=== PATIENT | male | born 1955 | race Caucasian/White ===

== ENCOUNTER → 2024-10-12 14:39 | Outpatient (REF) | payer MEDICAID, MEDICARE, SELFPAY | LOC: RAD 14:39 | PROVIDERS: ATTENDING PHYSICIAN Surgery; FAMILY PHYSICIAN Family Medicine | DX: R10.31 Right lower quadrant pain (principal) | CPT/HCPCS: 76870; 76882; 93976 ==

== ENCOUNTER 2024-11-27 04:47 | Observation (INO) | payer MEDICARE, SELFPAY ==
[2024-11-26] VITALS (9 sets, daily range): BP systolic 108–149; BP diastolic 75–92; PULSE 82–90; BMI 25.3
[2024-11-26 17:11] LABS: Urine Character Cloudy (Clear)
[2024-11-26 17:50] LABS: Urine Squamous Cell 0-2 /LPF (Few)
[2024-11-26 17:53] LABS: Urine White Cell >100 /HPF (0-5)
[2024-11-26 20:25] LABS: Hematocrit 36.1 % (39.0-52.0); Hemoglobin 12.0 g/dL (13.0-18.0); Mean Corp Hgb Conc. 33.2 g/dL (33.0-37.0); Mean Corpuscular Volume 91.6 fL (80.0-94.0); Nucleated Red Blood Cells % 0 % (-); Platelet Count 192 10^3/uL (130-400); Red Cell Dist. Width 13.9 % (11.5-14.5)
[2024-11-26 20:32] LABS: ALT (SGPT) 16 U/L (0-50); AST (SGOT) 20 U/L (17-59); Albumin 4.7 g/dl (3.5-5.0); Alkaline Phosphatase 64 U/L (38-126); Blood Urea Nitrogen 23 mg/dl (9-20); Calcium 9.3 mg/dl (8.4-10.2); Carbon Dioxide 24 mmol/L (22-30); Chloride 108 mmol/L (98-107); Estimated Creatinine Clearance 65 ml/min; Glucose 92 mg/dl (70-99); Potassium 3.6 mmol/L (3.5-5.1); Sodium 139 mmol/L (135-145); Total Protein 7.2 g/dl (6.3-8.2); eGFR > 60.00
[2024-11-26 20:43] LABS: Troponin I < 0.012 ng/ml
--- NOTE | 2024-11-26 21:44 | ED.GENMED ---
History of Present Illness
General
Chief Complaint: Fall
Source: patient, records (Requested from [place]) and family
Exam Limitations: none
Time Seen by Provider: 11/26/24 21:27
Nursing documentation reviewed up to this point in time: agreed with
History of Present Illness
History of Present Illness:
69-year-old male complex past medical history
10 CVAs, 50 TIAs, circulation
Few weeks ago had a carotid endarterectomy at [place], with right-sided weakness stroke, which improved, recovering slowly from that surgery, this week he had a few episodes where he nearly passed out, did not strike his head but went down to the
ground, no headache no nausea vomiting dysuria no frequency, he spoke with his physicians suggested to go to the ER tells me he was not happy with the care at [facility] and thus came to [facility]
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
Past History
Past History
ED Past Medical History: HTN, Hypercholesterolemia, IDDM, Valvular disease and Other (Migraines)
ED Past Surgical History: Cardiac (Aortic valve replacement 2016, [facility])
Social History
Tobacco: Non-smoker
Alcohol: None
Drug: None
Personal:
Living: with family
Employment: Retired
Review of Systems
Review of Systems
All Other Systems: Not applicable
Constitutional: Reports fatigue; Denies fever
EENT: Reports no symptoms
Respiratory: Reports no symptoms
Cardiac: Reports no symptoms
ABD/GI: Reports no symptoms
: Denies dysuria or incontinence
Musculoskeletal: Reports no symptoms
Neurological: Reports weakness; Denies dizzy
Endocrine: Reports no symptoms
Hematologic/Lymphatic: Reports no symptoms
Phy Exam
Physical Exam
Physical Exam:
Physical Exam
General: no apparent distress, not acutely ill
Neck: No tongue bite no posterior neck pain neck surgical scar clean dry and intact poor dentition
Heart: s1/s2 regular rate and rhythm, no murmur. equal radial pulses.
Lungs: no acute respiratory distress. clear bilaterally
Abdomen: Nontender
Neuro: alert and oriented. no focal neurological deficits
Skin: no rash
Psychiatric: well kept. interactive and cooperative
Extremities: no edema.
Course
Orders/Labs/Results
Orders:
Orders
11/26/24 16:32
Electrocardiogram (*1) Urgent
Reason for Study: Chest Pain
EKG- Treatment ONCE
11/26/24 16:58
Urinalysis Reflex To Culture Urgent
Date Specimen was Collected: 11/26/24
Time Specimen was Collected: 16:33
Urine Microscopic Reflex Cult Urgent
Urine Culture Urgent
TIFFANY Source: U
Specimen Description:
Date Specimen was Collected: 11/26/24
Time Specimen was Collected: 16:33
11/26/24 19:58
Complete Blood Count/With Diff Urgent
Comprehensive Metabolic Panel Urgent
Troponin I Urgent
11/26/24 21:39
Add On - Microbiology Urgent
Tests Added?: urine culture
Orthostatic VS- Treatment ONCE
0.9% Sodium Chloride 1000 ml [Nss] 1,000 ml IV BOLUS
11/26/24 21:40
CT Head & Neck Angio W/wo IV Urgent
Comment:
Reason For Exam: recent CEA, cva anatomay??
Abnormal Lab Results
11/26/24 11/26/24
16:58 19:58
RBC 3.94 L 10^6/uL
(4.70-6.10)
Hgb 12.0 L g/dL
(13.0-18.0)
Hct 36.1 L %
(39.0-52.0)
Chloride 108 H mmol/L
(98-107)
BUN 23 H mg/dl
(9-20)
Ur Occult Blood Reflex 1+ A
(Negative)
Leukocyte Esterase Rfl 3+ A
(Negative)
Urine RBC 7-10 A /HPF
(0-2)
Urine WBC (Reflex) >100 A /HPF
(0-5)
Urine Bacteria (Reflex) Moderate A
(Negative)
Urine Albumin (Reflex) 1+ A
(Neg - Trace)
11/26/24 19:58
11/26/24 19:58
Vital Signs
Initial and Last Documented VS:
Initial Vital Signs
Temp Pulse Resp BP Pulse Ox
98.2 F 89 16 131/92 100
11/26/24 16:25 11/26/24 16:25 11/26/24 16:25 11/26/24 16:25 11/26/24 16:25
Last Documented Vital Signs
Temp Pulse Resp BP Pulse Ox
98.2 F 78 11 120/80 90
11/26/24 16:25 11/27/24 00:45 11/27/24 00:45 11/27/24 00:11 11/26/24 23:45
MDM/Problems Addressed
Differential Diagnosis Includes:
Dehydration arrhythmia intracerebral hemorrhage seizure electrolyte abnormality UTI deconditioning
MDM/Problems Addressed:
Weakness
Chronic conditions affecting care: DM and Neurological disorder
Acute Exacerbation and/or Progression of Chronic Illness: DM and Neurological disorder
*Radiology
Radiology exam reviewed: radiology read reviewed
*Pulse Oximetry
SaO2: 100
Oxygen Mode of Delivery: Room air
Patient hypoxic: no
*EKG
Interpreted by ED Provider?: Yes
Interpretation: normal
Comparison EKG: no comparison EKG present
Heart Rate: 78
Rate: normal
Rhythm: sinus
Ischemia: no ischemia
*Childcare Attendant Interpretation
Rate: normal
Interpretation: normal
Heart Rate: 78
Rhythm: sinus
*Critical Care Note
Total Time (30-74mins, 75-104mins- exclusive of procedures): Not Applicable
Update Note
Update Note:
Update complex past medical history, looks fairly well compensated here urinalysis noted will check culture, check CT angiogram of the head I have requested old records from [place], will start saline hydration check orthostatics keep on cardiac
monitor
1:15 AM, CT report reviewed with vision, looks like a lot of chronic findings,
ED Attending Note
-
Portions of this chart may have been created with voice recognition software.� Occasional wrong word or��sound alike� substitutions may have occurred due to the inherent limitations of voice recognition software.
Discharge Plan
Departure
Patient Disposition: Admit
Date of Disposition: 11/27/24
Time of Disposition: 01:30
Admit to: Telemetry
Presentation/result/management discussed w/ accepting MD/DO: Hospitalist
Patient with high blood pressure during this ER visit?: No
Condition: Fair
Discharge Problem:
Syncope and collapse, UTI (urinary tract infection)
Prescriptions:
No Action
acetaminophen 325 MG tablet
650 mg PO Q4-6HPRN PRN (Reason: pain/fever)
atorvastatin 10 MG tablet
10 mg PO QPM
riboflavin (vitamin B2) [Vitamin B-2] 100 MG tablet
200 mg PO BID
milk thistle 175 MG tablet
175 mg PO TID
aspirin [Ecotrin Low Strength] 81 MG tablet,delayed release (DR/EC)
81 mg PO DAILY
magnesium oxide 400 MG tablet
400 mg PO BID
ascorbic acid (vitamin C) [Vitamin C] 500 MG tablet
500 mg PO DAILY
ranitidine HCl 150 MG tablet
150 mg PO DAILY
metoprolol tartrate 50 MG tablet
50 mg PO DAILY
docusate sodium [Colace] 100 MG capsule
100 mg PO BIDPRN PRN (Reason: constipation)
oxycodone 5 MG tablet
5 - 10 mg PO Q4HPRN PRN (Reason: pain)
cholecalciferol (vitamin D3) [Vitamin D3] 1,000 UNIT capsule
1,000 unit PO TID
insulin aspart U-100 [Novolog FlexPen U-100 Insulin] 300 UNITS/3 ML insulin pen
0 units SC QID
Patient Comments:
sliding scale
omega 8-wgp-dlb-fish oil 1 EACH capsule
1 ea PO TID
Cranberry
4,200 mg PO TID
Denatured [place]
175 mg PO BID
Rosa
650 mg PO BID
topiramate 200 MG tablet
200 mg PO BID
Saw [place]
1 cap PO TID
Turmeric
60 mg PO BID
linezolid 600 MG tablet
600 mg PO BID Qty: 28 0RF
Referrals:
Lori Rachel MD [Family Provider, Internal Medicine]
Interventions
Interventions:
*Risk Screen - Suicide Last Done: 11/26/24 16:25
*General Assessment Last Done: 11/26/24 20:04
*Neglect/Abuse Screening Last Done: 11/26/24 16:25
*ED- Fall Risk Assessment Last Done: 11/26/24 20:04
*ED COVID-19 Vaccine History Last Done: 11/26/24 20:04
ED-Musculoskeletal Assessment Last Done: 11/26/24 20:04
ED- Neurological Assessment Last Done: 11/26/24 20:04
ED-Skin Assessment Last Done: 11/26/24 20:04
Discharge Date and Time
Print Language: KINYARWANDA
[2024-11-26] MEDS: NSS 1000 IV (21:49)
[2024-11-27] VITALS (13 sets, daily range): BP systolic 104–164; BP diastolic 64–99; PULSE 81–94; BMI 24.7
[2024-11-27] MEDS: LEVAQUIN 250 MG PO ×2 (01:47→23:02)
--- NOTE | 2024-11-27 03:16 | HPS.HSE ---
Family Physician
-
Family Physician: Lori Rachel
Chief Complaint
-
Falls
History of Present Illness
This is a 69-year-old with extensive past medical history including history of CVA, migrainous stroke, bipolar disorder, diabetes, hypertension, CAD, aortic valve replacement with patch prostatic valve, hyperlipidemia, neurological gait dysfunction
with history of subdural hematoma, history of carotid stenosis status post endarterectomy (recently at [place]) presenting to the emergency department with episode of nearly passing out.
Patient was admitted to [facility] in a month ago. At that time he had a right-sided weakness and stroke. He was status post carotid endarterectomy and recovering slowly from that surgery. He has had a few episodes of nearly passing out
this week. He did not strike his head but did go all the way to the ground. He denied any headache nausea vomiting. He denied any palpitations. He denied orthostatic dizziness. Patient reported symptoms to his physician and he was referred to
the emergency department.
He denies any recent melena or hematochezia. Denies diarrhea. Denies any cough, shortness of breath dyspnea on exertion. He denies any fevers or chills. He denies any urinary symptoms.
During hospitalization patient required catheterization and did have diarrhea. He left AMA because he did not like the care he was receiving at [place]. Patient refused Plavix but was taking full dose aspirin.
In the emergency department here today with a blood pressure of 134/90 with a pulse of 78 and he was satting 95% on room air. Temperature was 98.2.
ECG showed sinus rhythm at a rate of 74. UA is positive for leukocyte esterase WBCs and bacteria. CBC was unremarkable. Electrolytes and BUN/creatinine were unremarkable.
A CT head and CT angiogram of the head and neck showing:
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 Venous sinuses are patent no evidence of acute infarct or enhancement. The neck shows mild to moderate diffuse
soft tissue prominence around left carotid bulb probably postoperative. No findings suggestive of dissection or rupture. There is severe narrowing of the intradural segment of the left cerebral artery but no occlusion. Moderate sclerosis of the
right intradural segment of the vertebral artery.
Medical History
Past Medical History
Past Medical History: Reports Other (Hypertension, hyperlipidemia, CVA, insulin-dependent diabetes, valvular disease, migraine, bipolar disorder,)
Past Surgical History: Reports Other (Carotid endarterectomy, appendectomy, inguinal hernia repair, aortic valve replacement,)
Social History
Tobacco: Non-smoker
Alcohol: Daily
Drug: None
Personal:
Living: With Family
Family History
Family History: Not pertinent
Allergies / Home Medications
Allergies reflects when Allergies were last updated in [email or web address].
Home Medications with original date entered in [email or web address]
Allergy/Medication List:
Allergies
Allergy/AdvReac Type Severity Reaction Status Date / Time
cephalexin monohydrate (From Allergy Hives Verified 11/26/24 16:24
Keflex)
clindamycin Allergy Rash Verified 11/26/24 16:24
cyclobenzaprine HCl (From Allergy palpitation Verified 11/26/24 16:24
Flexeril) s
erythromycin lactobionate Allergy Hives Verified 11/26/24 16:24
(From Erythrocin)
hydroxyzine HCl (From Atarax) Allergy Hives Verified 11/26/24 16:24
Penicillins Allergy Rash Verified 11/26/24 16:24
Sulfa (Sulfonamide Allergy loose stool Verified 11/26/24 16:24
Antibiotics)
tetracycline Allergy Unknown Verified 11/26/24 16:24
vancomycin Allergy Unknown Verified 11/26/24 16:24
Home Medications
Cranberry 4,200 mg PO TID 11/18/15
Denatured [place] 175 mg PO BID 11/18/15
Rosa 650 mg PO BID 11/18/15
Saw [place] 1 cap PO TID 11/18/15
Turmeric 60 mg PO BID 11/18/15
acetaminophen 325 mg tablet 650 mg PO Q4-6HPRN PRN pain/fever 11/18/15
ascorbic acid (vitamin C) 500 mg tablet (Vitamin C) 500 mg PO DAILY 11/18/15
aspirin 81 mg tablet,delayed release (Ecotrin Low Strength) 81 mg PO DAILY 11/18/15
atorvastatin 10 mg tablet 10 mg PO QPM 11/18/15
cholecalciferol (vitamin D3) 25 mcg (1,000 unit) capsule (Vitamin D3) 1,000 unit PO TID 11/18/15
docusate sodium 100 mg capsule (Colace) 100 mg PO BIDPRN PRN constipation 11/18/15
insulin aspart U-100 100 unit/mL (3 mL) subcutaneous pen (Novolog FlexPen U-100 Insulin aspart) 0 units SC QID 11/18/15
magnesium oxide 400 mg (241.3 mg magnesium) tablet 400 mg PO BID 11/18/15
metoprolol tartrate 50 mg tablet 50 mg PO DAILY 11/18/15
milk thistle 175 mg tablet 175 mg PO TID 11/18/15
omega 1-frg-cgo-fish oil 500 mg (200mg-300mg)-1,000 mg capsule 1 ea PO TID 11/18/15
oxycodone 5 mg tablet 5 - 10 mg PO Q4HPRN PRN pain 11/18/15
ranitidine HCl 150 mg tablet 150 mg PO DAILY 11/18/15
riboflavin (vitamin B2) 100 mg tablet (Vitamin B-2) 200 mg PO BID 11/18/15
topiramate 200 mg tablet 200 mg PO BID 11/18/15
linezolid 600 mg tablet 600 mg PO BID #28 tabs 12/27/15
Review of Systems
-
Constitutional: Reports No Symptoms
EENT: Reports No Symptoms
Respiratory: Reports No Symptoms
Cardiac: Reports No Symptoms
Abdomen/GI: Reports No Symptoms
: Reports No Symptoms
Musculoskeletal: Reports No Symptoms
Skin: Reports No Symptoms
Neurological: Reports Dizzy
Endocrine: Reports No Symptoms
Hematologic/Lymphatic: Reports No Symptoms
Psych: Reports No Symptoms
Physical Exam
Vital Signs
Vital Signs
Temp Pulse Resp BP Pulse Ox
98.2 F 78 11 134/90 95
11/26/24 16:25 11/27/24 02:45 11/27/24 02:45 11/27/24 02:00 11/27/24 01:45
Physical Exam
General: Well Developed, Well Nourished and No Apparent Distress
HEENT: NormoCephalic, Moist mucous membranes and Atraumatic
Respiratory: Clear
Cardiac: S1/S2 and Regular Rhythm; No Murmur or Rub
GI: Soft, Non Tender, Non Distended and Normal Bowel Sounds; No Organomegaly
Rectal: Deferred by Provider
Musculoskeletal: No Clubbing, No Cyanosis and No Edema
Skin: No Rash
Neuro: AO x 3 and Nonfocal/grossly intact
Laboratory Results
-
11/26/24 19:58
11/26/24 19:58
Laboratory Results
Total Bilirubin 0.6 mg/dl (0.2-1.3) 11/26/24 19:58
AST 20 U/L (17-59) 11/26/24 19:58
ALT 16 U/L (0-50) 11/26/24 19:58
Alkaline Phosphatase 64 U/L (38-126) 11/26/24 19:58
Troponin I < 0.012 ng/ml 11/26/24 19:58
Data Reviewed
-
CT Scan: Report Reviewed by me
Medical Tests (Nuc Med, Echo, EKG etc): Image Personally Visualized and interpreted
Lab Data: Labs Reviewed by me
Old Records: Reviewed
Impression/Plan
-
IMPRESSION:
69-year-old with past medical history significant for CVA status post left carotid endarterectomy, presenting to the emergency department following fall on Saturday. Patient recalls the fall as just in his leg gave way and falling towards the
floor while bracing himself with his hands. He did not strike his head. Denied having any orthostatic symptoms at that time. He denies any dizziness at that time. He has chronic gait difficulty and he does use a walker. He was able to get up
and walk with a walker since then. He despite this positive UA here denies having any urinary symptoms. Risk factors for UTI includes recent instrumentation and hospitalization. Denies history of UTI but prior labs indicate positive UA in the
past. He is afebrile here and hemodynamically stable. CT head and CTA shows no acute findings compared to recent studies. He is neurologically intact.
PLAN:
Falls -suspect secondary to weakness versus orthostatic syncope in setting of urinary tract infection although symptoms are not typical. Risk factors for UTI or recent instrumentation.
-Admit to telemetry
-Urine culture sent
-Given history of allergies, will continue with Levaquin
-IV fluids
-Repeat orthostatic vital signs in a.m.
-PT evaluation
CVA status post CEA
-Continue aspirin 325
-Patient refused Plavix due to history of allergies to multiple medication
-Continue ezetimibe
DM 2 -patient on semaglutide
-Aspart sliding scale for now
Hypertension
-Continue metoprolol
Bipolar
-Continue Topamax
DVT prophylaxis�heparin subcu
CODE STATUS�full code
[2024-11-27] MEDS: NSS 1000 IV (05:30)
[2024-11-27 07:04] LABS: Hematocrit 35.3 % (39.0-52.0); Hemoglobin 11.6 g/dL (13.0-18.0); Mean Corp Hgb Conc. 32.9 g/dL (33.0-37.0); Mean Corpuscular Volume 91.7 fL (80.0-94.0); Platelet Count 149 10^3/uL (130-400); Red Cell Dist. Width 13.7 % (11.5-14.5)
[2024-11-27 07:17] LABS: Blood Urea Nitrogen 18 mg/dl (9-20); Calcium 8.8 mg/dl (8.4-10.2); Carbon Dioxide 23 mmol/L (22-30); Chloride 111 mmol/L (98-107); Estimated Creatinine Clearance 71 ml/min; Glucose 97 mg/dl (70-99); Potassium 3.9 mmol/L (3.5-5.1); Sodium 141 mmol/L (135-145); eGFR > 60.00
[2024-11-27 07:44] LABS: TSH 0.90 uIU/ml (0.47-4.68)
[2024-11-27 08:02] LABS: Glucose - Point of Care 85 mg/dl (70-99)
[2024-11-27] MEDS: ZETIA 10 MG PO (08:36)
[2024-11-27] MEDS: HEPARIN 5000 UNITS SC ×3 (08:36→23:02)
[2024-11-27] MEDS: TOPROL XL 50 MG PO (08:36)
[2024-11-27] MEDS: TOPAMAX 100 MG PO ×2 (08:36→20:56)
[2024-11-27] MEDS: ASPIRIN 325 MG PO (08:36)
[2024-11-27 09:01] LABS: Hepatitis C Antibody Negative (Negative)
--- NOTE | 2024-11-27 11:14 | CM ---
Patient seen bedside, initial assessment completed. Admitted for falls.
Patient resides alone in a 2nd floor apartment, 18 steps to enter, no elevator access. Patient is independent w/ ambulation w/ use of a cane. Independent w/ ADLs, grab bars in bathroom. Denies SNF hx, prev known to [facility], OP vestibular PT in
the past.
Address, point of contact and insurance verified
PCP: Lori Rachel
[facility]: [facility]
Patient is admitted obs. [facility] form verbally reviewed, copy provided, copy on chart
Therapy assessed, rec home PT at d/c. Patient agreeable to [facility]
Plan: Home w/ [facility]
[2024-11-27 12:06] LABS: Glucose - Point of Care 105 mg/dl (70-99)
--- NOTE | 2024-11-27 13:38 | VNURNOTE ---
Home Health Liaison met with patient at bedside to discuss [facility] nurse/therapy, visits, schedule and homebound status. Patient is agreeable and understands that visits at home will be 2-3 x per week to assess and teach medical management. Patient
is aware that [facility] will contact them for start of care in 1-2 days after discharge from .
[facility] referral in [facility].
--- NOTE | 2024-11-27 16:20 | W.PN.HOSP.TC ---
Today's Communication/Plan
-
Assessment / Plan
Assessment / Plan
General: No Apparent Distress, Comfortable and Conversant
HEENT: NormoCephalic, Moist mucous membranes, Atraumatic
Respiratory: Clear and Non Labored Respirations
Cardiac: S1/S2 and Regular Rhythm; No Rub or Gallop
GI: Soft, Non Tender, Non Distended and Normal Bowel Sounds
Musculoskeletal: No Edema, no deformity
Skin: Warm and dry
: NO M[place]
Neuro: Awake, Alert, Nonfocal/grossly intact
Psych: Calm and Intact Judgment/Insight
Mr. Zuniga is a 69-year-old male with a medical history of CVA, carotid stenosis (status post left carotid endarterectomy at [place]), subdural hematoma, bipolar disorder, insulin-dependent diabetes mellitus, hypertension, aortic valve
replacement, CAD, and migraines who presented with near syncope. He was recently treated at [facility] for carotid endarterectomy and related stroke. Reportedly left AGAINST MEDICAL ADVICE and he has since been. Weakness seizure syncope.
He takes full-strength aspirin but not Plavix or Brilinta due to advice reportedly from his physician at [facility] to avoid allergy development considering his prior history of such. In the emergency department here, he was normotensive, afebrile, and
saturating appropriately on room air. His labs were generally unremarkable. However his UA was positive for pyuria and bacteriuria in addition to RBCs and albumin. CT angiography of his head and neck showed no evidence of large vessel occlusion
or dissection, noncontrast CT head showed no acute abnormality. He was admitted for further evaluation and management.
UTI:
- With associated weakness
- Likely related to prior hospitalization and catheterization, patient reports poor care and being left in his feces for long periods of time during prior hospitalization
- Continue antibiotics with Levaquin considering multiple allergies
- Follow-up cultures
- IV fluids
Carotid artery disease:
- Recent CVA and left carotid endarterectomy
- Continue full-strength aspirin and Zetia
- Ortho vital signs were negative
Diabetes mellitus:
- Will need to clarify home regimen
- Continue sliding scale insulin for now
Bipolar disorder:
- Continue home topiramate 100 mg p.o. twice daily
DVT prophylaxis: Subcu heparin
CODE STATUS: Full code
Total time spent on today's encounter was 45 minutes
Anticipated Discharge: 24 - 48 hours
Subjective/Interval History
-
Date of Service: November 27, 2024
Patient was seen and examined at bedside this morning. Feels that he is starting to improve with antibiotics and IV fluids.
Objective Data
-
Labs:
Laboratory Results
11/27/24
06:39
WBC 6.0
Hgb 11.6 L
Hct 35.3 L
Plt Count 149 D
Sodium 141
Potassium 3.9
Chloride 111 H
Carbon Dioxide 23
BUN 18
Creatinine 1.1
Glucose 97
Calcium 8.8
Vital Signs:
Vital Signs
Temp Pulse Resp BP Pulse Ox
97.9 F 77 18 113/76 100
11/27/24 11:00 11/27/24 11:00 11/27/24 11:00 11/27/24 11:00 11/27/24 11:00
Review of Systems
-
History Source: Patient
All other systems: Reviewed and negative
Constitutional: Reports Fatigue
Physical Exam
-
General: No Apparent Distress
[2024-11-27 16:45] LABS: Glucose - Point of Care 76 mg/dl (70-99)
[2024-11-27 21:52] LABS: Glucose - Point of Care 95 mg/dl (70-99)
[2024-11-28 03:46] VITALS: BP 139/91
[2024-11-28 07:30] LABS: Glucose - Point of Care 83 mg/dl (70-99)
[2024-11-28 08:00] VITALS: BP 121/80; BP 146/85; BP 150/98; PULSE 75; PULSE 84; PULSE 86
[2024-11-28] MEDS: TOPAMAX 100 MG PO ×2 (09:43→20:50)
[2024-11-28] MEDS: ZETIA 10 MG PO (09:43)
[2024-11-28] MEDS: ASPIRIN 325 MG PO (09:43)
[2024-11-28] MEDS: HEPARIN 5000 UNITS SC ×3 (09:43→23:25)
[2024-11-28] MEDS: TOPROL XL 50 MG PO (09:43)
[2024-11-28 11:00] VITALS: BP 135/83
[2024-11-28 12:15] LABS: Glucose - Point of Care 104 mg/dl (70-99)
--- NOTE | 2024-11-28 13:58 | W.PN.HOSP.TC ---
Today's Communication/Plan
-
Assessment / Plan
Assessment / Plan
General: No Apparent Distress, Comfortable and Conversant
HEENT: NormoCephalic, Moist mucous membranes, Atraumatic
Respiratory: Clear and Non Labored Respirations
Cardiac: S1/S2 and Regular Rhythm; No Rub or Gallop
GI: Soft, Non Tender, Non Distended and Normal Bowel Sounds
Musculoskeletal: No Edema, no deformity
Skin: Warm and dry
: NO M[place]
Neuro: Awake, Alert, Nonfocal/grossly intact
Psych: Calm and Intact Judgment/Insight
Mr. Zuniga is a 69-year-old male with a medical history of CVA, carotid stenosis (status post left carotid endarterectomy at [place]), subdural hematoma, bipolar disorder, insulin-dependent diabetes mellitus, hypertension, aortic valve
replacement, CAD, and migraines who presented with near syncope. He was recently treated at [facility] for carotid endarterectomy and related stroke. Reportedly left AGAINST MEDICAL ADVICE and he has since been. Weakness seizure syncope.
He takes full-strength aspirin but not Plavix or Brilinta due to advice reportedly from his physician at [facility] to avoid allergy development considering his prior history of such. In the emergency department here, he was normotensive, afebrile, and
saturating appropriately on room air. His labs were generally unremarkable. However his UA was positive for pyuria and bacteriuria in addition to RBCs and albumin. CT angiography of his head and neck showed no evidence of large vessel occlusion
or dissection, noncontrast CT head showed no acute abnormality. He was admitted for further evaluation and management.
UTI:
- With associated weakness
- Likely related to prior hospitalization and catheterization, patient reports poor care and being left in his feces for long periods of time during prior hospitalization
- Continue antibiotics with Levaquin considering multiple allergies
- Urine cultures currently growing coagulase-negative staph
- No further IV fluids
Carotid artery disease:
- Recent CVA and left carotid endarterectomy
- Continue full-strength aspirin and Zetia
- Ortho vital signs were negative
Diabetes mellitus:
- Patient reports he is not on diabetic medications at home, rather controls it with keto diet
- Continue sliding scale insulin for now
- Follow-up hemoglobin A1c
Bipolar disorder:
- Continue home topiramate 100 mg p.o. twice daily
DVT prophylaxis: Subcu heparin
CODE STATUS: Full code
Total time spent on today's encounter was 35 minutes
Anticipated Discharge: 24 - 48 hours
Subjective/Interval History
-
Date of Service: November 28, 2024
Patient was seen and examined at bedside this morning. No acute events overnight and no current complaints. Urine cultures are growing coagulation negative staph. Remains on Levaquin for treatment of urinary tract infection.
Objective Data
-
Vital Signs:
Vital Signs
Temp Pulse Resp BP Pulse Ox
96.2 F L 69 16 135/83 100
11/28/24 11:00 11/28/24 11:00 11/28/24 11:00 11/28/24 11:00 11/28/24 11:00
I&O
11/27/24 11/28/24 11/29/24
06:59 06:59 06:59
Intake Total 1959
Balance 1959
Review of Systems
-
History Source: Patient
All other systems: Reviewed and negative
Physical Exam
-
General: No Apparent Distress
[2024-11-28 15:16] VITALS: BP 141/86
--- NOTE | 2024-11-28 16:32 | PTCARENOTE ---
Assumed the care of this pt at 1530. Pt is AAOx3, VSS, resting in bed comfortably. Sinus rhythm on telemetry. No changes in the pt assessment from prior.
[2024-11-28 16:37] LABS: Glucose - Point of Care 94 mg/dl (70-99)
[2024-11-28 19:19] VITALS: BP 144/90
[2024-11-28 21:59] LABS: Glucose - Point of Care 100 mg/dl (70-99)
[2024-11-28 23:23] VITALS: BP 151/71
[2024-11-28] MEDS: LEVAQUIN 250 MG PO (23:25)
[2024-11-29 03:57] VITALS: BP 124/89
[2024-11-29 07:28] LABS: Glucose - Point of Care 76 mg/dl (70-99)
[2024-11-29 07:41] VITALS: BP 108/70
[2024-11-29 08:52] VITALS: BP 107/69; BP 108/70; PULSE 79; PULSE 82; PULSE 88
[2024-11-29 09:31] LABS: Glycohemoglobin (HgbA1c) 5.1 % (4.0-5.6)
[2024-11-29] MEDS: ASPIRIN 325 MG PO (09:48)
[2024-11-29] MEDS: HEPARIN 5000 UNITS SC (09:49)
[2024-11-29] MEDS: TOPROL XL 50 MG PO (09:49)
[2024-11-29] MEDS: ZETIA 10 MG PO (09:49)
[2024-11-29] MEDS: TOPAMAX 100 MG PO (09:49)
[2024-11-29] MEDS: FLUSH (NSS) 1 FLUSH IV (09:50)
[2024-11-29 10:44] LABS: Glucose - Point of Care 108 mg/dl (70-99)
[2024-11-29 11:40] VITALS: BP 121/76
--- NOTE | 2024-11-29 12:46 | W.DCSUMMARY ---
Discharge Summary
Discharge Data
Date of Admission: 11/27/24
Date of Discharge: 11/29/24
Total time spent discharging patient (in min): 40
-
Pending Results: No
Hospital Course
Mr. Zuniga is a 69-year-old male with a medical history of CVA, carotid stenosis (status post left carotid endarterectomy at [place]), subdural hematoma, bipolar disorder, qfz-dbteccd-oswgpiyov diabetes mellitus (managed with diet, not on
medications), hypertension, aortic valve replacement, CAD, and migraines who presented with near syncope. He was recently treated at [facility] for carotid endarterectomy and related stroke. Reportedly left AGAINST MEDICAL ADVICE and he
has since been experiencing episodes of near syncope. He takes full-strength aspirin but not Plavix or Brilinta due to advice reportedly from his physician at [facility] to avoid allergy development considering his prior history of such. In the emergency
department here, he was normotensive, afebrile, and saturating appropriately on room air. His labs were generally unremarkable. However his UA was positive for pyuria and bacteriuria in addition to RBCs and albumin. CT angiography of his head and
neck showed no evidence of large vessel occlusion or dissection, noncontrast CT head showed no acute abnormality. He was admitted for further evaluation and management.
He was started on IV fluids and antibiotic coverage for urinary tract infection. Levaquin was chosen considering coverage needs and patient's history of multiple drug allergies. He clinically improved on this treatment. His urine cultures grew
Staphylococcus capitis sensitive to Levaquin. He was medically stable at time of hospital discharge. He will be discharged to home with a prescription for 5 more days of Levaquin to complete a total 7-day course. He will need to follow-up with
his primary care physician after hospital discharge for repeat urinalysis to monitor for resolution of urine RBCs and albumin which are likely related to his current infection.
General: No Apparent Distress, Comfortable and Conversant
HEENT: NormoCephalic, Moist mucous membranes, Atraumatic
Respiratory: Clear and Non Labored Respirations
Cardiac: S1/S2 and Regular Rhythm; No Rub or Gallop
GI: Soft, Non Tender, Non Distended and Normal Bowel Sounds
Musculoskeletal: No Edema, no deformity
Skin: Warm and dry
: NO Mckinney
Neuro: Awake, Alert, Nonfocal/grossly intact
Psych: Calm and Intact Judgment/Insight
Discharge Plan
-
Patient Disposition: Home (Routine Discharge)
Discharge Diagnosis/Procedures: Complicated urinary tract infection
Activity Restrictions/Additional Instructions:
Mr. Zuniga is a 69-year-old male with a medical history of CVA, carotid stenosis (status post left carotid endarterectomy at [place]), subdural hematoma, bipolar disorder, kgg-hlovzzc-mzomldhla diabetes mellitus (managed with diet, not on
medications), hypertension, aortic valve replacement, CAD, and migraines who presented with near syncope. He was recently treated at [facility] for carotid endarterectomy and related stroke. Reportedly left AGAINST MEDICAL ADVICE and he
has since been experiencing episodes of near syncope. He takes full-strength aspirin but not Plavix or Brilinta due to advice reportedly from his physician at [facility] to avoid allergy development considering his prior history of such. In the emergency
department here, he was normotensive, afebrile, and saturating appropriately on room air. His labs were generally unremarkable. However his UA was positive for pyuria and bacteriuria in addition to RBCs and albumin. CT angiography of his head and
neck showed no evidence of large vessel occlusion or dissection, noncontrast CT head showed no acute abnormality. He was admitted for further evaluation and management.
He was started on IV fluids and antibiotic coverage for urinary tract infection. Levaquin was chosen considering coverage needs and patient's history of multiple drug allergies. He clinically improved on this treatment. His urine cultures grew
Staphylococcus capitis sensitive to Levaquin. He was medically stable at time of hospital discharge. He will be discharged to home with a prescription for 5 more days of Levaquin to complete a total 7-day course. He will need to follow-up with
his primary care physician after hospital discharge for repeat urinalysis to monitor for resolution of urine RBCs and albumin which are likely related to his current infection.
Referrals:
Lori Rachel MD [Family Provider, Internal Medicine]
Prescriptions:
New
levofloxacin 750 mg tablet
750 mg PO DAILY 5 Days Qty: 5 0RF
Continued
acetaminophen 325 MG tablet
650 mg PO Q4-6HPRN PRN (Reason: pain/fever)
riboflavin (vitamin B2) [Vitamin B-2] 100 MG tablet
200 mg PO BID
milk thistle 175 MG tablet
175 mg PO TID
magnesium oxide 400 MG tablet
400 mg PO BID
ascorbic acid (vitamin C) [Vitamin C] 500 MG tablet
500 mg PO DAILY
metoprolol tartrate 50 MG tablet
50 mg PO DAILY
cholecalciferol (vitamin D3) [Vitamin D3] 1,000 UNIT capsule
2,000 unit PO BID
omega 6-xfj-sdh-fish oil 1 EACH capsule
1 ea PO DAILY
Cranberry
4,200 mg PO BID
Denatured Butterbur
175 mg PO BID
Rosa
1,200 mg PO DAILY
topiramate 200 MG tablet
200 mg PO BID
Saw Solsberry
1 cap PO BID
Turmeric
60 mg PO DAILY
aspirin 325 mg Tablet,Delayed Release (Dr/Ec)
325 mg PO DAILY
Discharge Orders:
Discharge Patient (As Directed); Ordered 11/29/24
Ordered By: Luis Allen
Discharge Date and Time
Print Language: MALAY
--- NOTE | 2024-11-29 14:27 | CM ---
Addendum entered by Sharon Stephen 11/29/24 14:33:
Patient now has decided he wants [facility] after all. Nursing aware.
Original Note:
Patient seen at bedside on . Patient declined [facility]N supports at discharge. CM updated nursing. Patient for discharge home today. CM will continue to follow for discharge planning needs.
Plan; home with no needs, declined [facility]N
== END 2024-11-29 15:11 | disposition home or self-care (01) ==
LOC: 4 EAST ACU 04:47
PROVIDERS: Emergency Medicine; ADMITTING PHYSICIAN Internal Medicine; ATTENDING PHYSICIAN Internal Medicine; EMERGENCY PHYSICIAN Emergency Medicine; FAMILY PHYSICIAN Family Medicine
DX: N39.0 Urinary tract infection, site not specified (principal); R29.6 Repeated falls; Z86.73 Personal history of transient ischemic attack (TIA), and cerebral infarction without residual deficits; F31.9 Bipolar disorder, unspecified; E78.00 Pure hypercholesterolemia, unspecified; I10 Essential (primary) hypertension; E11.9 Type 2 diabetes mellitus without complications; I25.10 Atherosclerotic heart disease of native coronary artery without angina pectoris; Z95.2 Presence of prosthetic heart valve; Z98.890 Other specified postprocedural states; Z79.4 Long term (current) use of insulin; Z79.82 Long term (current) use of aspirin; R26.9 Unspecified abnormalities of gait and mobility; B95.7 Other staphylococcus as the cause of diseases classified elsewhere
CPT/HCPCS: 70496; 70498; 80048; 80053; 81003; 81015; 82962; 83036; 84443; 84484; 85025; 85027; 86803; 87086; 87147; 87186; 93005; 96360; 97162; 99285; G0378; Q9967

== ENCOUNTER 2025-01-15 20:01 | Observation (INO) | payer MEDICARE, SELFPAY ==
[2025-01-15 16:27] VITALS: BP 134/93
--- NOTE | 2025-01-15 17:32 | ED.GENMED ---
History of Present Illness
<Coty Garcia MD, Resident - Last Filed: 01/15/25 23:29>
General
Chief Complaint: Dizziness
Source: patient
Time Seen by Provider: 01/15/25 16:50
History of Present Illness
History of Present Illness:
Patient is a 69-year-old male with a medical history of CVA, carotid stenosis (status post left carotid endarterectomy at [place]), subdural hematoma, bipolar disorder, fry-gfkszgy-lwwbuurbv diabetes mellitus (managed with diet, not on
medications), hypertension, aortic valve replacement, CAD, Vitiligo, and migraines who presents to the emergency department with dizziness that started at 0900 today. He was treated at [facility] for carotid endarterectomy and related
stroke in the past. Prior CT angiogram of the head and neck conducted on 11/27/2024 shows origin of the right posterior cerebral artery. 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 the people around him noticed that he was leaning off to the right side while he was washing dishes and while he was ambulating. These symptoms prompted him to call his primary care provider's
office. While speaking with office staff he began to have word finding difficulty with stammering of his words - they recommended that the patient promptly present to the emergency department for further evaluation.
Past History
<Coty Garcia MD, Resident - Last Filed: 01/15/25 23:29>
Past History
ED Past Medical History: HTN, Hypercholesterolemia, IDDM, Valvular disease and Other (Migraines)
ED Past Surgical History: Cardiac (Aortic valve replacement 2016, [facility])
Social History
Tobacco: Non-smoker
Alcohol: None
Drug: None
Personal:
Living: with family
Employment: Retired
Phy Exam
<Coty Garcia MD, Resident - Last Filed: 01/15/25 23:29>
General Physical Exam
General Presentation: well appearing
General age: appears stated age
General Skin: warm and dry
General Habitus: normal
General Mental: alert
General Hydration: appears well hydrated
Cardiovascular Exam
Cardiovascular Exam: regular rate/rhythm, no edema, no gallop, no JVD, no murmur and normal peripheral pulses
Pulmonary Exam
Pulmonary Exam: lungs clear, no respiratory distress, no rales, chest non tender, no crackles, no rhonchi, no stridor, no wheezing and no cough
Neurological Exam
Neurological Exam: alert, oriented x3, no motor deficits and speech normal
Musculoskeletal Exam
Musculoskeletal Exam: full ROM
Psychiatric Exam
Psychiatric Exam: normal mood/affect
Course
<Coty Garcia MD, Resident - Last Filed: 01/15/25 23:29>
Orders/Labs/Results
Orders:
Orders
01/15/25 Breakfast
Regular
At Your Request: Full Participation
Does patient need a safe tray?: No
01/15/25 16:36
CT Head W/o Iv Contrast Urgent
Comment:
Reason For Exam: dizziness and speech difficulty
01/15/25 17:29
Electrocardiogram (*1) Urgent
Reason for Study: TIA/Stroke
EKG- Treatment ONCE
01/15/25 17:34
Complete Blood Count/With Diff Urgent
Comprehensive Metabolic Panel Urgent
PT/INR [Prothrombin Time] Urgent
PTT Urgent
Troponin I Urgent
Urinalysis Reflex To Culture Urgent
Date Specimen was Collected: 01/15/25
Time Specimen was Collected: 16:38
Urine Microscopic Reflex Cult Urgent
Urine Culture Urgent
TIFFANY Source: U
Specimen Description:
Date Specimen was Collected: 01/15/25
Time Specimen was Collected: 16:38
01/15/25 18:10
Clopidogrel Bisulfate [Plavix] 300 mg PO NOW STA
01/15/25 18:11
CT BRAIN PERF STROKE ALERT Urgent
Comment:
Reason For Exam: dizziness, speech disturbance
CT HEAD/NECK ANG STROKE ALERT Urgent
Comment:
Reason For Exam: dizziness, speech disturbance
01/15/25 18:13
0.9% Sodium Chloride 500 ml [Nss] 500 ml IV BOLUS
01/15/25 19:36
Admit/Transfer Patient As Directed
Co-Sign Provider:
Level of Care: Observation services
Assign to:: Telemetry
Physician / Group: Javier
Diagnosis: Dizziness
Reason for Telemetry: CVA/TIA
Date to Stop Telemetry: 01/18/25
Time to Stop Telemetry: 11:00
PRN Pain Medication Management As Directed
May give lesser potent ordered pain med per pt: Yes
preference::
Protocol:: Medication orders for pain may be administered in a
manner that supports deferring to patient preference
when the pt is:
- Requesting an ordered lesser potent pain medication.
Least to most potent pain medications are defined
as: acetaminophen < NSAID < tramadol < opioids
(morphine, oxycodone, hydromorphone).
- Requesting a lesser dose of the same medication IF
ORDERED.
- Requesting a less intrusive route of administration
if both routes are prescribed by the provider (PO <
IV).
01/15/25 19:37
Code Status As Directed
Resuscitation Status: Full Code
01/15/25 22:22
Acetaminophen [Tylenol] 650 mg PO Q4HPRN PRN
Dextrose 50%-Water [Dextrose 50% Syringe] 12.5 grams IV [id number] PRN
Glucagon [GlucaGen] 1 mg IM PRN PRN
Metoprolol Xl [Toprol Xl] 50 mg PO HS
Ondansetron Injectable [Zofran] 4 mg IV Q6HPRN PRN
01/15/25 22:22
ESR [Erythrocyte Sed Rate] Routine
Glycohemoglobin (HgbA1c) Routine
Activity As Directed
Activity Level: Ambulate
With Assistance
Bedside Glucose Monitoring As Directed
Frequency: AC&HS
Additional Instructions:: Change to q6h if pt on TPN, tube feeding or not eating
EKG with chest pain [ECG as needed] As Directed
ECG as needed for:: Chest Pain
I/O [Intake/ Output] As Directed
Frequency: Per unit guidelines
Neurological Checks As Directed
Frequency: q4h
Orthostatic Vital Signs As Directed
Orthostatic VS Frequency: BID
Pneumatic Compression Sleeves As Directed
Type: Knee high
Vital Signs As Directed
Frequency: Per unit guidelines
Oxygen Therapy [O2 Therapy] [RESP] Routine
Titrate/Wean O2 to maintain O2 sat greater than (%): 94
PT Consult [Pt Eval And Treat] Routine
Treatment: Vestibular eval and treat
Activity Level: Ambulate
With Assistance
DX Deep Vein Thrombosis Video Routine
01/15/25 23:00
Topiramate [Topamax] 200 mg PO BID
01/16/25 06:00
EKG [Electrocardiogram (*1)] IN AM
Reason for Study: Chest Pain
Basic Metabolic Panel IN AM
Cardiovascular Evaluation IN AM
Complete Blood Count/No Diff IN AM
MR Brain Without Contrast IN AM
Comment:
Reason For Exam: CVA / TIA
Recent pill cam endoscopy?: No
01/16/25 07:30
Insulin Aspart Corrective Low [Novolog Flexpen-Low Resistance] See Protocol SC AC
01/16/25 08:00
Aspirin 325 mg PO DAILY
01/18/25 11:00
DC Protocol for Telemetry ONCE
Abnormal Lab Results
01/15/25
17:34
RBC 4.48 L 10^6/uL
(4.70-6.10)
Absolute Monos (auto) 0.9 H 10^3/uL
(0.1-0.6)
Monocytes % 13.4 H %
(1.7-9.3)
BUN 36 H mg/dl
(9-20)
Creatinine 1.4 H mg/dL
(0.7-1.3)
Glucose 115 H mg/dl
(70-99)
Ur Occult Blood Reflex 2+ A
(Negative)
Leukocyte Esterase Rfl 3+ A
(Negative)
Urine RBC 16-20 A /HPF
(0-2)
Urine WBC (Reflex) 70-80 A /HPF
(0-5)
Urine Bacteria (Reflex) Many A
(Negative)
Urine Albumin (Reflex) 1+ A
(Neg - Trace)
01/15/25 17:34
01/15/25 17:34
Vital Signs
Initial and Last Documented VS:
Initial Vital Signs
Temp Pulse Resp BP Pulse Ox
97.5 F 79 16 134/93 99
01/15/25 16:27 01/15/25 16:27 01/15/25 16:27 01/15/25 16:27 01/15/25 16:27
Last Documented Vital Signs
Temp Pulse Resp BP Pulse Ox
97.5 F 69 14 138/80 97
01/15/25 16:27 01/15/25 23:01 01/15/25 22:00 01/15/25 23:01 01/15/25 22:00
<Asher Olea MD - Last Filed: 01/15/25 18:59>
Orders/Labs/Results
Orders:
Orders
01/15/25 Breakfast
Regular
At Your Request: Full Participation
Does patient need a safe tray?: No
01/15/25 16:36
CT Head W/o Iv Contrast Urgent
Comment:
Reason For Exam: dizziness and speech difficulty
01/15/25 17:29
Electrocardiogram (*1) Urgent
Reason for Study: TIA/Stroke
EKG- Treatment ONCE
01/15/25 17:34
Complete Blood Count/With Diff Urgent
Comprehensive Metabolic Panel Urgent
PT/INR [Prothrombin Time] Urgent
PTT Urgent
Troponin I Urgent
Urinalysis Reflex To Culture Urgent
Date Specimen was Collected: 01/15/25
Time Specimen was Collected: 16:38
Urine Microscopic Reflex Cult Urgent
Urine Culture Urgent
TIFFANY Source: U
Specimen Description:
Date Specimen was Collected: 01/15/25
Time Specimen was Collected: 16:38
01/15/25 18:10
Clopidogrel Bisulfate [Plavix] 300 mg PO NOW STA
01/15/25 18:11
CT BRAIN PERF STROKE ALERT Urgent
Comment:
Reason For Exam: dizziness, speech disturbance
CT HEAD/NECK ANG STROKE ALERT Urgent
Comment:
Reason For Exam: dizziness, speech disturbance
01/15/25 18:13
0.9% Sodium Chloride 500 ml [Nss] 500 ml IV BOLUS
01/15/25 19:36
Admit/Transfer Patient As Directed
Co-Sign Provider:
Level of Care: Observation services
Assign to:: Telemetry
Physician / Group: Javier
Diagnosis: Dizziness
Reason for Telemetry: CVA/TIA
Date to Stop Telemetry: 01/18/25
Time to Stop Telemetry: 11:00
PRN Pain Medication Management As Directed
May give lesser potent ordered pain med per pt: Yes
preference::
Protocol:: Medication orders for pain may be administered in a
manner that supports deferring to patient preference
when the pt is:
- Requesting an ordered lesser potent pain medication.
Least to most potent pain medications are defined
as: acetaminophen < NSAID < tramadol < opioids
(morphine, oxycodone, hydromorphone).
- Requesting a lesser dose of the same medication IF
ORDERED.
- Requesting a less intrusive route of administration
if both routes are prescribed by the provider (PO <
IV).
01/15/25 19:37
Code Status As Directed
Resuscitation Status: Full Code
01/15/25 22:22
Acetaminophen [Tylenol] 650 mg PO Q4HPRN PRN
Dextrose 50%-Water [Dextrose 50% Syringe] 12.5 grams IV [id number] PRN
Glucagon [GlucaGen] 1 mg IM PRN PRN
Metoprolol Xl [Toprol Xl] 50 mg PO HS
Ondansetron Injectable [Zofran] 4 mg IV Q6HPRN PRN
01/15/25 22:22
ESR [Erythrocyte Sed Rate] Routine
Glycohemoglobin (HgbA1c) Routine
Activity As Directed
Activity Level: Ambulate
With Assistance
Bedside Glucose Monitoring As Directed
Frequency: AC&HS
Additional Instructions:: Change to q6h if pt on TPN, tube feeding or not eating
EKG with chest pain [ECG as needed] As Directed
ECG as needed for:: Chest Pain
I/O [Intake/ Output] As Directed
Frequency: Per unit guidelines
Neurological Checks As Directed
Frequency: q4h
Orthostatic Vital Signs As Directed
Orthostatic VS Frequency: BID
Pneumatic Compression Sleeves As Directed
Type: Knee high
Vital Signs As Directed
Frequency: Per unit guidelines
Oxygen Therapy [O2 Therapy] [RESP] Routine
Titrate/Wean O2 to maintain O2 sat greater than (%): 94
PT Consult [Pt Eval And Treat] Routine
Treatment: Vestibular eval and treat
Activity Level: Ambulate
With Assistance
DX Deep Vein Thrombosis Video Routine
01/15/25 23:00
Topiramate [Topamax] 200 mg PO BID
01/16/25 06:00
EKG [Electrocardiogram (*1)] IN AM
Reason for Study: Chest Pain
Basic Metabolic Panel IN AM
Cardiovascular Evaluation IN AM
Complete Blood Count/No Diff IN AM
MR Brain Without Contrast IN AM
Comment:
Reason For Exam: CVA / TIA
Recent pill cam endoscopy?: No
01/16/25 07:30
Insulin Aspart Corrective Low [Novolog Flexpen-Low Resistance] See Protocol SC AC
01/16/25 08:00
Aspirin 325 mg PO DAILY
01/18/25 11:00
DC Protocol for Telemetry ONCE
Abnormal Lab Results
01/15/25
17:34
RBC 4.48 L 10^6/uL
(4.70-6.10)
Absolute Monos (auto) 0.9 H 10^3/uL
(0.1-0.6)
Monocytes % 13.4 H %
(1.7-9.3)
BUN 36 H mg/dl
(9-20)
Creatinine 1.4 H mg/dL
(0.7-1.3)
Glucose 115 H mg/dl
(70-99)
Ur Occult Blood Reflex 2+ A
(Negative)
Leukocyte Esterase Rfl 3+ A
(Negative)
Urine RBC 16-20 A /HPF
(0-2)
Urine WBC (Reflex) 70-80 A /HPF
(0-5)
Urine Bacteria (Reflex) Many A
(Negative)
Urine Albumin (Reflex) 1+ A
(Neg - Trace)
01/15/25 17:34
01/15/25 17:34
Vital Signs
Initial and Last Documented VS:
Initial Vital Signs
Temp Pulse Resp BP Pulse Ox
97.5 F 79 16 134/93 99
01/15/25 16:27 01/15/25 16:27 01/15/25 16:27 01/15/25 16:27 01/15/25 16:27
Last Documented Vital Signs
Temp Pulse Resp BP Pulse Ox
97.5 F 69 14 138/80 97
01/15/25 16:27 01/15/25 23:01 01/15/25 22:00 01/15/25 23:01 01/15/25 22:00
<Coty Garcia MD, Resident - Last Filed: 01/15/25 23:29>
*Pulse Oximetry
SaO2: 99
Oxygen Mode of Delivery: Room air
Patient hypoxic: no
*Critical Care Note
Total Time (30-74mins, 75-104mins- exclusive of procedures): 60
<Coty Garcia MD, Resident - Last Filed: 01/15/25 23:29>
Update Note
Update Note:
Problem List:
Acute dizziness without weakness
aortic stenosis
hypertension
diabetes mellitus type 2
asymptomatic pyuria
migraine headaches
depression/PTSD
Plan:
CT of the head without IV contrast
EKG
CBC and CMP
PT/INR
PTT
troponin
UA with reflex to culture
CT brain perf stroke alert
CT head and neck angiography stroke alert
normal saline bolus
Differential Diagnoses:
CVA
TIA
hypotension due to dehydration
migraine headaches
UTI
Radiology:
- head CT conducted on 01/15/2025 at 16:36:
1. No CT evidence for acute intracranial hemorrhage or transcortical infarct.
2. Mild diffuse cerebral and cerebellar volume loss.
3. Minimal white matter leukoaraiosis.
- CT brain per stroke alert conducted on 01/15/2025 at 18:11:
within normal limit
- head/neck CTA conducted on 18:11:
NECK CTA:
1. 50-70% diameter stenosis of the origin of the right vertebral artery.
2. Less than 50% diameter stenosis in the right proximal-mid ICA.
3. Previous bilateral carotid endarterectomies.
HEAD CTA:
1. Very severe calcific atherosclerotic plaque in both intracranial internal carotid arteries.
2. 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
3. MULTIPLE SEVERE STENOSES (greater than 70% diameter) in the LEFT INTRACRANIAL VERTEBRAL ARTERY.
4. 50-70% diameter stenosis in the right intracranial vertebral artery.
5. Less than 50% diameter stenosis in the basilar artery.
6. 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
EKG: Sinus rhythm with occasional premature ventricular complexes. Otherwise normal EKG
Labs:
CBC unremarkable
PT/INR within normal limit
PTT within normal limits
CMP unremarkable
troponin within normal limits
urinalysis with 2+ occult blood, 3+ leukocyte esterase, RBCs in urine, WBCs in urine, many urine bacteria.
Updates:
patient to be admitted to the hospitalist service for dizziness secondary to possible TIA/CVA
ED Attending Note
<Coty Garcia MD, Resident - Last Filed: 01/15/25 23:29>
-
Portions of this chart may have been created with voice recognition software.� Occasional wrong word or��sound alike� substitutions may have occurred due to the inherent limitations of voice recognition software.
<Asher Olea MD - Last Filed: 01/15/25 18:59>
ED Attending Note
Patient seen and examined by attending physician: Yes
I performed a history and physical exam of patient and discussed management with resident, I reviewed resident's note and agree with documented findings and plan of care.: Yes
ED Attending Note:
I have seen and evaluated the patient with a [id number] encounter. I have spoken to the resident and involved in the medical history, the physical exam, medical decision making.
Evaluation and management service: agree unless noted differently below.
Results interpretation: agree unless noted differently below.
Focused HPI: 69-year-old male with history as noted presents to the ER for evaluation of dizziness. 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 He
describes a disequilibrium, swaying as he walks. He apparently has also had some slowness/stuttering of his speech. Came to the ER for assessment after discussion with his primary doctor. He does have a history of multiple strokes in the past but
says that primary issues have been cognitive from the strokes with no functional deficit. He is on full dose aspirin for history of valve replacement but no other blood thinners. He denies any weakness or numbness in extremities, loss of vision,
headache, neck pain or other acute complaints.
Physical exam: Awake and alert not in distress. Pupils equal round and reactive to light bilaterally, extraocular movements are intact without nystagmus. Negative Darling-Hallpike. No limb ataxia. Motor and sensory intact in the upper and lower
extremities. His speech is fluid with no appreciable dysarthria or aphasia. Systolic murmur noted on cardiac auscultation but regular rhythm.
Medical Decision Makin-year-old male presents for evaluation of dizziness and subjective speech hesitancy. Symptoms ongoing since this morning. Labs were sent off including a CBC and a CMP which showed mild ISABELA but no other clinically
significant abnormalities. EKG shows sinus rhythm. He was sent for initial CT head which is negative for any acute pathology. Case discussed with neurology with concern for possible CVA�they recommended sending for a CTA and perfusion study
despite patient being outside 4.5-hour window for TNK and for this reason a delayed stroke alert was called to expedite studies; neurology thought that patient could potentially be a candidate for delayed TNK beyond 4.5 hour window if there was a
perfusion defect on imaging. CT perfusion unremarkable however and so decision made to proceed with Plavix load and admission.
Discharge Plan
Departure
Patient Disposition: Admit
Presentation/result/management discussed w/ accepting MD/DO: Hospitalist
Discharge Problem:
Acute CVA (cerebrovascular accident)
Interventions
Interventions:
*Risk Screen - Suicide Last Done: 01/15/25 22:33
*General Assessment Last Done: 01/15/25 18:10
*Neglect/Abuse Screening Last Done: 01/15/25 18:10
*ED- Fall Risk Assessment Last Done: 01/15/25 18:10
*ED COVID-19 Vaccine History Last Done: 01/15/25 22:33
*Nursing Disposition Last Done: 01/15/25 22:13
ED- Neurological Assessment Last Done: 01/15/25 18:57
ED- Cardiac Assessment Last Done: 01/15/25 18:10
ED Swallowing Screen Last Done: 01/15/25 18:57
Discharge Date and Time
Discharge Date/Time: 01/15/25 22:14
[2025-01-15 17:36] VITALS: BMI 26.5
[2025-01-15 17:52] LABS: Hematocrit 40.1 % (39.0-52.0); Hemoglobin 13.3 g/dL (13.0-18.0); Mean Corp Hgb Conc. 33.2 g/dL (33.0-37.0); Mean Corpuscular Volume 89.5 fL (80.0-94.0); Nucleated Red Blood Cells % 0 % (-); Platelet Count 155 10^3/uL (130-400); Red Cell Dist. Width 12.2 % (11.5-14.5)
[2025-01-15 17:58] LABS: INR 1.02; PT 13.7 Sec (11.4-14.6)
[2025-01-15 17:59] LABS: APTT 27.1 Sec (23.4-35.0)
[2025-01-15 18:02] LABS: ALT (SGPT) 25 U/L (0-50); AST (SGOT) 26 U/L (17-59); Albumin 4.7 g/dl (3.5-5.0); Alkaline Phosphatase 81 U/L (38-126); Blood Urea Nitrogen 36 mg/dl (9-20); Calcium 9.7 mg/dl (8.4-10.2); Carbon Dioxide 26 mmol/L (22-30); Chloride 106 mmol/L (98-107); Estimated Creatinine Clearance 54 ml/min; Glucose 115 mg/dl (70-99); Potassium 4.0 mmol/L (3.5-5.1); Sodium 138 mmol/L (135-145); Total Protein 7.6 g/dl (6.3-8.2); eGFR 54.07
[2025-01-15 18:12] LABS: Troponin I < 0.012 ng/ml
[2025-01-15 18:28] LABS: Urine Character Cloudy (Clear)
[2025-01-15 18:46] LABS: Urine Red Blood Cell 16-20 /HPF (0-2); Urine Squamous Cell 0-2 /LPF (Few)
[2025-01-15 18:47] LABS: Urine White Cell 70-80 /HPF (0-5)
[2025-01-15] MEDS: NSS 500 IV (19:20)
--- NOTE | 2025-01-15 19:40 | HPS.HSE ---
Family Physician
-
Family Physician: Lori Rachel
Chief Complaint
-
Dizziness
History of Present Illness
Patient is a 69y M with PMH significant for ASCVD, prior CVA and diet-controlled DM who presents to ED complaining of dizziness / ataxia. Patient states that he developed dizziness / disorientation / room-spinning sensation this AM while washing
dishes. He reports being unsteady on his feet and with continued dizziness for most of the day thereafter. Friends witnessed his instability and difficulty walking and encouraged him to present to the ED for evaluation.
Patient denies any fall or LOC. He denies any headache or vision changes. He denies any focal numbness or tingling. No difficulty with writing, utensils, etc.
In the ED he states that he has perhaps mild dizzy sensation at present. He otherwise has no complaints.
Note: Patient avoids many prescriptions medications and states that his Pediatric Nephrologist at [place] has informed him he has 'potential' to be allergic to many novel agents. Hence he refuses many prescription medications.
Medical History
Past Medical History
Past Medical History: Reports Other
Additional Past Medical History:
ASCVD (CAD, CVA, Carotid Stenosis)
Aortic Stenosis s/p AVR
Hypertension
DM-II
Migraine / Chronic Headaches (followed at [facility])
Bipolar Disorder
Past Surgical History: Reports Other
Additional Past Surgical History:
Left CEA
Porcine AVR
Inguinal Herniorrhaphy
Appendectomy
Social History
Tobacco: Non-smoker
Alcohol: None
Drug: None
Family History
Family History: Not pertinent
Allergies / Home Medications
Allergies reflects when Allergies were last updated in [employer].
Home Medications with original date entered in [employer]
Allergy/Medication List:
Allergies
Allergy/AdvReac Type Severity Reaction Status Date / Time
cephalexin monohydrate (From Allergy Hives Verified 01/15/25 16:34
Keflex)
clindamycin Allergy Rash Verified 01/15/25 16:34
cyclobenzaprine HCl (From Allergy palpitation Verified 01/15/25 16:34
Flexeril) s
erythromycin lactobionate Allergy Hives Verified 01/15/25 16:34
(From Erythrocin)
hydroxyzine HCl (From Atarax) Allergy Hives Verified 01/15/25 16:34
Penicillins Allergy Rash Verified 01/15/25 16:34
Sulfa (Sulfonamide Allergy loose stool Verified 01/15/25 16:34
Antibiotics)
tetracycline Allergy Unknown Verified 01/15/25 16:34
vancomycin Allergy Unknown Verified 01/15/25 16:34
Home Medications
Cranberry 4,200 mg PO BID 11/18/15
Denatured Butterbur 175 mg PO BID 11/18/15
Rosa 1,200 mg PO DAILY 11/18/15
Saw [place] 1 cap PO BID 11/18/15
Turmeric 60 mg PO DAILY 11/18/15
acetaminophen 325 mg tablet 650 mg PO Q4-6HPRN PRN pain/fever 11/18/15
ascorbic acid (vitamin C) 500 mg tablet (Vitamin C) 500 mg PO DAILY 11/18/15
cholecalciferol (vitamin D3) 25 mcg (1,000 unit) capsule (Vitamin D3) 2,000 unit PO BID 11/18/15
magnesium oxide 400 mg (241.3 mg magnesium) tablet 400 mg PO BID 11/18/15
metoprolol tartrate 50 mg tablet 50 mg PO HS 11/18/15
milk thistle 175 mg tablet 175 mg PO TID 11/18/15
omega 1-flt-moz-fish oil 500 mg (200mg-300mg)-1,000 mg capsule 1 ea PO DAILY 11/18/15
riboflavin (vitamin B2) 100 mg tablet (Vitamin B-2) 200 mg PO BID 11/18/15
topiramate 200 mg tablet 200 mg PO BID 11/18/15
aspirin 325 mg tablet,delayed release 325 mg PO DAILY 11/29/24
Review of Systems
-
History Source: Patient
A 12 point ROS was completed and negative except as noted: Yes
Constitutional: Denies Fever or Chills
Respiratory: Denies Cough or Trouble Breathing
Cardiac: Denies Chest Pain or Palpitations
Abdomen/GI: Denies Abdominal Pain, Nausea, Vomiting or Diarrhea
: Denies Dysuria, Frequency or Flank Pain
Musculoskeletal: Denies Joint Pain or Edema
Neurological: Reports Dizzy; Denies Headache, Weakness or Numbness
Psych: Denies Depression or Anxiety
Physical Exam
Vital Signs
Vital Signs
Temp Pulse Resp BP Pulse Ox
97.5 F 81 16 134/93 98
01/15/25 16:27 01/15/25 19:00 01/15/25 19:00 01/15/25 16:27 01/15/25 19:00
Physical Exam
General: Other (69y M in no acute distress.)
HEENT: Moist mucous membranes, PERRLA and Other (Poor dentition)
Respiratory: Clear; No Wheezes, Rales or Rhonchi
Cardiac: S1/S2 and Regular Rhythm; No Murmur
GI: Soft, Non Tender, Non Distended and Normal Bowel Sounds
Musculoskeletal: No Clubbing, No Cyanosis and No Edema
Skin: Other (Scattered petechiae along lateral aspect of the RLE. Raised, crusted lesion in the center without bleeding / discharge.)
Neuro: AO x 3, No Motor Deficits, Nonfocal/grossly intact and Other (No nystagmus. Normal cerebellar signs.)
Laboratory Results
-
01/15/25 17:34
01/15/25 17:34
Laboratory Results
PT 13.7 Sec (11.4-14.6) 01/15/25 17:34
INR 1.02 01/15/25 17:34
APTT 27.1 Sec (23.4-35.0) 01/15/25 17:34
Total Bilirubin 0.5 mg/dl (0.2-1.3) 01/15/25 17:34
AST 26 U/L (17-59) 01/15/25 17:34
ALT 25 U/L (0-50) 01/15/25 17:34
Alkaline Phosphatase 81 U/L (38-126) 01/15/25 17:34
Troponin I < 0.012 ng/ml 01/15/25 17:34
Impression/Plan
-
A/P: Patient is a 69y M with PMH significant for ASCVD, AVR and DM-II who presents to ED complaining of dizziness and ataxia throughout the day today.
Dizziness
- Observe overnight for further evaluation and treatment.
- ? vestibular origin - though need to rule out CVA / TIA given significant risk factors.
- CT, CT perfusion, CTA are unremarkable in the ED.
- MRI in AM.
- Continue ASA 325mg daily (patient declines Plavix).
- Continue Zetia.
- Follow for any new / worsening symptoms.
- PT / Vestibular eval in AM.
ASCVD
s/p BioAVR
- Rule out new CVA / TIA as noted above.
- Continue ASA 325mg, change metoprolol to once daily formulation (as he only takes it once daily), continue Zetia.
- s/p L CEA earlier this year at [facility].
Benign Hypertension
- Stable. Continue metoprolol with changes as noted above.
- Adjust regimen as needed.
Diet-Controlled DM-II
- Stable. Follow glucose and cover with SSI if needed.
- Update A1C.
Asymptomatic Pyuria
- UA in the ED was abnormal with 70-80 WBC and many bacteria.
- Patient has no urinary symptoms / complaints however.
- Observe off of any abx for now.
- Monitor for any new symptoms / complaints.
Migraine Headaches
- Patient is followed at [facility].
- Takes extensive regimen of primarily herbal / supplemental remedies.
- Continue topiramate.
- No headache at present.
DVT Prophylaxis: SCDs
Code Status: Full
[2025-01-15 19:48] VITALS: BP 148/92
[2025-01-15 20:00] VITALS: BP 115/73
[2025-01-15 21:00] VITALS: BP 92/65
[2025-01-15 22:00] VITALS: BP 93/73
[2025-01-15 22:22] VITALS: BMI 26.8
[2025-01-15 23:00] VITALS: BP 123/78; BP 138/80; BP 138/87; PULSE 69; PULSE 79; PULSE 83
[2025-01-15] MEDS: TOPROL XL 50 MG PO (23:01)
[2025-01-15] MEDS: TOPAMAX 200 MG PO (23:02)
[2025-01-16] VITALS (7 sets, daily range): BP systolic 100–150; BP diastolic 66–89; PULSE 73–88
--- NOTE | 2025-01-16 07:46 | W.PN.HOSP.TC ---
Today's Communication/Plan
-
PT/OT
See plan
Assessment / Plan
Assessment / Plan
Physical Exam
General: Other (69y M in no acute distress.)
HEENT: Moist mucous membranes, PERRLA and Other (Poor dentition)
Respiratory: Clear; No Wheezes, Rales or Rhonchi
Cardiac: S1/S2 and Regular Rhythm; No Murmur
GI: Soft, Non Tender, Non Distended and Normal Bowel Sounds
Musculoskeletal: No Clubbing, No Cyanosis and No Edema
Skin: Other (Scattered petechiae along lateral aspect of the RLE. Raised, crusted lesion in the center without bleeding / discharge.)
Neuro: AO x 3, No Motor Deficits, Nonfocal/grossly intact and Other (No nystagmus. Normal cerebellar signs.)
Assessment/Plan
69y M with PMH significant for ASCVD, prior CVA and diet-controlled DM who presents to ED complaining of dizziness / ataxia. Patient states that he developed dizziness / disorientation / room-spinning sensation this AM while washing dishes. He
reports being unsteady on his feet and with continued dizziness for most of the day thereafter. Friends witnessed his instability and difficulty walking and encouraged him to present to the ED for evaluation.
Patient denies any fall or LOC. He denies any headache or vision changes. He denies any focal numbness or tingling. No difficulty with writing, utensils, etc.
In the ED he states that he has perhaps mild dizzy sensation at present. He otherwise has no complaints.
Note: Patient avoids many prescriptions medications and states that his Pipe Foreman at [place] has informed him he has 'potential' to be allergic to many novel agents. Hence he refuses many prescription medications.
Patient is a 69y M with PMH significant for ASCVD, AVR and DM-II who presents to ED complaining of dizziness and ataxia throughout the day today.
Dizziness
- ? vestibular origin - though need to rule out CVA / TIA given significant risk factors.
- CT, CT perfusion, CTA are unremarkable in the ED -- showed bilateral CEA without restenosis, and right vertebral calcified plaque 50-70% stenosis
- MRI Brain showed no acute stroke, but did show chronic strokes, chronic intracranial hemorrhage
- Continue ASA 325mg daily (patient declines Plavix).
- Continue Zetia.
- Follow for any new / worsening symptoms.
- PT / Vestibular eval in AM.
- Patient's symptoms are not vertebrobasilar insufficiency since it is not triggered by turning to either side, no intervention recommended by neurology
- No focal neurologic deficits as of 01/16/25
- Consulted neurology as per PT findings, multiple intracranial stenoses contributing??
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
-Increased blood pressure by stopping metoprolol, starting midodrine, Florinef, Northera, compression garments, etc.
-No Sinemet for now as patient doesn't seem that symptomatic from his Parkinson's, and it could actually worsen the orthostatic hypotension.
Reported history of 10 strokes, 50 TIA�s, and six seizures (as per patient)
Chronic Strokes
Chronic Intracranial Hemorrhage on Brain MRI
ASCVD
History of Carotid Endarterectomy (Left side, as per patient)
Bilateral CEA
s/p BioAVR
- Continue ASA 325mg, change metoprolol to once daily formulation (as he only takes it once daily), continue Zetia.
- s/p L CEA earlier this year at [facility].
- Patient is intolerant of atorvastatin so switch to Rosuvastatin 20 mg daily
Benign Hypertension
- Stable. Continue metoprolol with changes as noted above.
- Adjust regimen as needed.
Diet-Controlled DM-II
- Stable. Follow glucose and cover with SSI if needed.
- Update A1C.
Asymptomatic Pyuria
- UA in the ED was abnormal with 70-80 WBC and many bacteria.
- Patient has no urinary symptoms / complaints however.
- Observe off of any abx for now.
- Monitor for any new symptoms / complaints.
Migraine Headaches
- Patient is followed at [facility].
- Takes extensive regimen of primarily herbal / supplemental remedies.
- Continue topiramate.
- No headache at present.
Mild mucosal disease in the maxillary sinuses on Brain MRI
DVT Prophylaxis: SCDs. Heparin subq
Code Status: Full Code
Anticipated Discharge: 24 - 48 hours
Subjective/Interval History
-
Date of Service: January 16, 2025
Patient was seen and examined. He reported still having on and off dizziness.
Objective Data
-
Labs:
Laboratory Results
01/16/25
07:29
WBC Pending
Hgb Pending
Hct Pending
Plt Count Pending
Sodium Pending
Potassium Pending
Chloride Pending
Carbon Dioxide Pending
BUN Pending
Creatinine Pending
Glucose Pending
Calcium Pending
Vital Signs:
Vital Signs
Temp Pulse Resp BP Pulse Ox
97.8 F 85 20 129/86 97
01/16/25 03:00 01/16/25 03:00 01/16/25 03:00 01/16/25 03:00 01/16/25 03:00
[2025-01-16 07:52] LABS: Glucose - Point of Care 115 mg/dl (70-99)
[2025-01-16 07:53] LABS: Hematocrit 38.8 % (39.0-52.0); Hemoglobin 13.0 g/dL (13.0-18.0); Mean Corp Hgb Conc. 33.5 g/dL (33.0-37.0); Mean Corpuscular Volume 89.2 fL (80.0-94.0); Platelet Count 146 10^3/uL (130-400); Red Cell Dist. Width 12.2 % (11.5-14.5)
[2025-01-16 08:23] LABS: Blood Urea Nitrogen 27 mg/dl (9-20); Calcium 9.2 mg/dl (8.4-10.2); Carbon Dioxide 23 mmol/L (22-30); Chloride 110 mmol/L (98-107); Estimated Creatinine Clearance 69 ml/min; Glucose 123 mg/dl (70-99); HDL Cholesterol 52 mg/dl; LDL Cholesterol, Calculated 95 mg/dl; Potassium 4.0 mmol/L (3.5-5.1); Sodium 139 mmol/L (135-145); Very Low Density Lipoprotein 16 mg/dl (0-30); eGFR > 60.00
[2025-01-16] MEDS: TOPAMAX 200 MG PO ×2 (08:41→19:44)
[2025-01-16] MEDS: ASPIRIN 325 MG PO (08:41)
[2025-01-16 11:38] LABS: Glucose - Point of Care 119 mg/dl (70-99)
[2025-01-16 16:54] LABS: Glucose - Point of Care 93 mg/dl (70-99)
--- NOTE | 2025-01-16 17:31 | CON.NEURO ---
Neuro Assessment/Plan
Assessment
brain MRI imgs rev'd, neg for acute stroke, report is pending
CTA head/neck imgs and rept rev'd, agree bilateral CEA without restenosis, and right vertebral calcified plaque 50-70% stenosis
Vertigo, appears resolved, and unable to provoke.
vertebral artery stenosis, carotid stenosis s/p CEA, intolerant of atorvastatin, will try rosuvastatin 20 as it is a different [id number] isozyme and patient agreeable. I do not believe his vertigo is VBI because it is not triggered by turning to either
side, and do not recommend any intervention
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 will hold off on Sinemet for now as he
doesn't seem that symptomatic from PD and it could worsen the orthostatic hypotension.
Consultation
Order
Date of Consultation: 01/16/25
Requesting Provider: Remi
Reason for Consult: dizziness and vertigo
Subjective/Objective
Subjective Data
Date of Service: January 16, 2025
from h&p:
Patient is a 69y M with PMH significant for ASCVD, prior CVA and diet-controlled DM who presents to ED complaining of dizziness / ataxia. Patient states that he developed dizziness / disorientation / room-spinning sensation this AM while washing
dishes. He reports being unsteady on his feet and with continued dizziness for most of the day thereafter. Friends witnessed his instability and difficulty walking and encouraged him to present to the ED for evaluation.
Patient denies any fall or LOC. He denies any headache or vision changes. He denies any focal numbness or tingling. No difficulty with writing, utensils, etc.
In the ED he states that he has perhaps mild dizzy sensation at present. He otherwise has no complaints.
Note: Patient avoids many prescriptions medications and states that his Director Of Mechanical Engineering at [place] has informed him he has 'potential' to be allergic to many novel agents. Hence he refuses many prescription medications.
presently no vertigo. This am developed orthostatic dizziness and hypotension a few mins after walking with PT
over the past few years he has noticed tremors, soft speech, shuffling gait. always had poor handwriting. Reports h/o 10 strokes, 50 TIA, and bilateral CEA
previously did not tolerate atorvastatin
Objective Data
Vital Signs
Temp Pulse Resp BP Pulse Ox
36.4 C 71 18 117/77 99
01/16/25 15:36 01/16/25 15:36 01/16/25 15:36 01/16/25 15:36 01/16/25 15:36
Lab Results
01/16/25 07:29
01/16/25 07:29
PT 13.7 Sec (11.4-14.6) 01/15/25 17:34
INR 1.02 01/15/25 17:34
APTT 27.1 Sec (23.4-35.0) 01/15/25 17:34
Sodium 139 mmol/L (135-145) 01/16/25 07:29
Potassium 4.0 mmol/L (3.5-5.1) 01/16/25 07:29
BUN 27 mg/dl (9-20) H 01/16/25 07:29
Glucose 123 mg/dl (70-99) H 01/16/25 07:29
Calcium 9.2 mg/dl (8.4-10.2) 01/16/25 07:29
LDL Cholesterol, Calc 95 mg/dl 01/16/25 07:29
Patient Allergies
cephalexin monohydrate (From Keflex) Allergy (Verified 01/15/25 16:34)
Hives
clindamycin Allergy (Verified 01/15/25 16:34)
Rash
cyclobenzaprine HCl (From Flexeril) Allergy (Verified 01/15/25 16:34)
palpitations
erythromycin lactobionate (From Erythrocin) Allergy (Verified 01/15/25 16:34)
Hives
hydroxyzine HCl (From Atarax) Allergy (Verified 01/15/25 16:34)
Hives
Penicillins Allergy (Verified 01/15/25 16:34)
Rash
Sulfa (Sulfonamide Antibiotics) Allergy (Verified 01/15/25 16:34)
loose stool
tetracycline Allergy (Verified 01/15/25 16:34)
Unknown
vancomycin Allergy (Verified 01/15/25 16:34)
Unknown
Physical Exam
-
AAOx3, speech clear, language intact
VFF, EOMI, right facial droop
RUE/LE 5-/5, LUE/LE full strength
+bradykinesia, +cogwheel rigidity
gaze is congugate, no skew deviation cover/uncover, no nystagmus
yuliana hallpike negative bilaterally.
neck rotation decreased to left, does not trigger vertigo with rotation either side.
Medications
-
Active Medications
Generic Name Dose Route Start Last Admin
Trade Name Freq PRN Reason Stop Dose Admin
Acetaminophen 650 mg 01/15/25 22:22
Acetaminophen 325 Mg Tablet PO 02/12/25 22:21
Q4HPRN PRN
Mild Pain / Temp > 101
Aspirin 325 mg 01/16/25 08:00 01/16/25 08:41
Aspirin 325 Mg Tablet PO 02/13/25 07:59 325 mg
DAILY SYLVIE Administration
Dextrose 12.5 grams 01/15/25 22:22
Dextrose 50% (0.5 Grams/Ml) 50 Ml Syringe IV 02/12/25 22:21
[id number] PRN
hypoglycemia
Protocol
Glucagon 1 mg 01/15/25 22:22
Glucagon 1 Mg Vial IM 02/12/25 22:21
PRN PRN
hypoglycemia
Protocol
Insulin Aspart 0 units 01/16/25 07:30 01/16/25 17:11
Insulin Aspart Low Resistance 300 Units/3 Ml Pen.Injctr SC 02/13/25 07:29 Not Given
AC SYLVIE
Protocol
Metoprolol Succinate 50 mg 01/15/25 22:22 01/15/25 23:01
Metoprolol 50 Mg Extended Release Tablet PO 02/12/25 22:21 50 mg
HS SYLVIE Administration
Ondansetron HCl 4 mg 01/15/25 22:22
Ondansetron 4 Mg/2 Ml Vial IV 02/12/25 22:21
Q6HPRN PRN
nausea and vomiting
Sodium Chloride 0 flush 01/15/25 23:00
Sodium Chloride 0.9% (Flush) Syringe IV 02/12/25 22:59
PER PROTOCOL SYLVIE
Topiramate 200 mg 01/15/25 23:00 01/16/25 08:41
Topiramate 100 Mg Tablet PO 02/12/25 22:59 200 mg
BID SYLVIE Administration
Home Medications
�Medication �Instructions �Recorded
Cranberry 4,200 mg PO BID 11/18/15
Denatured Butterbur 175 mg PO BID 11/18/15
Rosa 1,200 mg PO DAILY 11/18/15
Saw [place] 1 cap PO BID 11/18/15
Turmeric 60 mg PO DAILY 11/18/15
acetaminophen 325 mg tablet 650 mg PO Q4-6HPRN PRN pain/fever 11/18/15
ascorbic acid (vitamin C) 500 mg 500 mg PO DAILY 11/18/15
tablet (Vitamin C)
cholecalciferol (vitamin D3) 25 2,000 unit PO BID 11/18/15
mcg (1,000 unit) capsule (Vitamin
D3)
magnesium oxide 400 mg (241.3 mg 400 mg PO BID 11/18/15
magnesium) tablet
metoprolol tartrate 50 mg tablet 50 mg PO HS 11/18/15
milk thistle 175 mg tablet 175 mg PO TID 11/18/15
omega 5-igm-dan-fish oil 500 mg 1 ea PO DAILY 11/18/15
(200mg-300mg)-1,000 mg capsule
riboflavin (vitamin B2) 100 mg 200 mg PO BID 11/18/15
tablet (Vitamin B-2)
topiramate 200 mg tablet 200 mg PO BID 11/18/15
aspirin 325 mg tablet,delayed 325 mg PO DAILY 11/29/24
release
ezetimibe 10 mg tablet 10 mg PO DAILY 01/15/25
[2025-01-16] MEDS: CRESTOR 20 MG PO (17:54)
[2025-01-16] MEDS: HEPARIN 5000 UNITS SC (19:43)
[2025-01-16 21:40] LABS: Glucose - Point of Care 106 mg/dl (70-99)
[2025-01-16] MEDS: TOPROL XL 50 MG PO (22:25)
[2025-01-17 08:42] LABS: Glucose - Point of Care 175 mg/dl (70-99)
[2025-01-17 08:57] VITALS: BP 147/100; BP 149/97; BP 153/100; PULSE 81; PULSE 85; PULSE 87
[2025-01-17] MEDS: ASPIRIN 325 MG PO (09:05)
[2025-01-17] MEDS: TOPAMAX 200 MG PO ×2 (09:05→20:37)
[2025-01-17] MEDS: HEPARIN 5000 UNITS SC ×2 (09:05→20:36)
[2025-01-17 12:02] LABS: Glucose - Point of Care 109 mg/dl (70-99)
[2025-01-17 12:11] VITALS: BP 112/73
--- NOTE | 2025-01-17 15:21 | W.PN.HOSP.TC ---
Today's Communication/Plan
-
PT/OT
Acute Rehab placement
Assessment / Plan
Assessment / Plan
Physical Exam
General: Not in acute distress
HEENT: Moist mucous membranes
Respiratory: Clear to Auscultation Bilaterally
Cardiac: S1/S2 and Regular Rhythm
GI: Soft, Non Tender, Non Distended and Normal Bowel Sounds
Musculoskeletal: No Cyanosis and No Edema
Skin: Other (Scattered petechiae along lateral aspect of the RLE. Raised, crusted lesion in the center without bleeding / discharge.)
Neuro: AO x 3, No Motor Deficits, Nonfocal/grossly intact and Other (No nystagmus. Normal cerebellar signs.)
Assessment/Plan
69 y/o male with PMH significant for ASCVD, prior CVA and diet-controlled DM who presented to [facility] ED complaining of dizziness / ataxia. Patient stated that he developed dizziness / disorientation / room-spinning sensation this AM while washing
dishes. He reported being unsteady on his feet and with continued dizziness for most of the day thereafter. Friends witnessed his instability and difficulty walking and encouraged him to present to the ED for evaluation.
Patient denied any fall or LOC. He denied any headache or vision changes. He denied any focal numbness or tingling. No difficulty with writing, utensils, etc.
In the ED he stated that he has perhaps mild dizzy sensation at present. He otherwise had no complaints.
Note: Patient avoids many prescriptions medications and states that his Machine Packager at [place] has informed him he has 'potential' to be allergic to many novel agents. Hence he refuses many prescription medications.
Patient is a 69y M with PMH significant for ASCVD, AVR and DM-II who presents to ED complaining of dizziness and ataxia throughout the day today.
Dizziness
- ? vestibular origin - though need to rule out CVA / TIA given significant risk factors.
- CT, CT perfusion, CTA are unremarkable in the ED -- showed bilateral CEA without restenosis, and right vertebral calcified plaque 50-70% stenosis
- MRI Brain showed no acute stroke, but did show chronic strokes, chronic intracranial hemorrhage
- Continue ASA 325mg daily (patient declines Plavix).
- Continue Zetia.
- Follow for any new / worsening symptoms.
- PT / Vestibular eval in AM.
- Patient's symptoms are not vertebrobasilar insufficiency since it is not triggered by turning to either side, no intervention recommended by neurology
- Consulted neurology as per PT findings, multiple intracranial stenoses contributing??
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
-Increased blood pressure by stopping metoprolol, starting midodrine, Florinef, Northera, compression garments, etc.
-No Sinemet for now as patient doesn't seem that symptomatic from his Parkinson's, and it could actually worsen the orthostatic hypotension.
Reported history of 10 strokes, 50 TIA�s, and six seizures (as per patient)
Chronic Strokes
Chronic Intracranial Hemorrhage on Brain MRI
ASCVD
History of Carotid Endarterectomy (Left side, as per patient)
Bilateral CEA
s/p BioAVR
- Continue ASA 325mg, change metoprolol to once daily formulation (as he only takes it once daily), continue Zetia.
- s/p L CEA earlier this year at [facility].
- Patient is intolerant of atorvastatin so switch to Rosuvastatin 20 mg daily
Benign Hypertension
- Stable. Continue metoprolol with changes as noted above.
- Adjust regimen as needed.
Diet-Controlled DM-II
- Glucose controlled and stable. Follow glucose and cover with SSI if needed.
Asymptomatic Pyuria
- UA in the ED was abnormal with 70-80 WBC and many bacteria.
- Patient has no urinary symptoms / complaints however.
- Observe off of any abx for now.
- Monitor for any new symptoms / complaints.
Migraine Headaches
- Patient is followed at [facility].
- Takes extensive regimen of primarily herbal / supplemental remedies.
- Continue topiramate.
- No headache at present.
Mild mucosal disease in the maxillary sinuses on Brain MRI
DVT Prophylaxis: SCDs. Heparin subq
Code Status: Full Code
Anticipated Discharge: Within 24 hours
Subjective/Interval History
-
Date of Service: January 17, 2025
Patient was seen and examined. He still has on and off dizziness but otherwise doing okay.
Objective Data
-
Vital Signs:
Vital Signs
Temp Pulse Resp BP Pulse Ox
97.5 F 71 16 112/73 100
01/17/25 12:11 01/17/25 12:11 01/17/25 12:11 01/17/25 12:11 01/17/25 12:11
I&O
01/16/25 01/17/25 01/18/25
06:59 06:59 06:59
Intake Total 770 / 770
Output Total 700 / 700
Balance 770 / 770 -700 / -700
[2025-01-17 17:18] VITALS: BP 131/84
[2025-01-17 17:23] LABS: Glucose - Point of Care 114 mg/dl (70-99)
[2025-01-17] MEDS: CRESTOR 20 MG PO (17:45)
--- NOTE | 2025-01-17 19:22 | W.PN.NEURO.1 ---
Today's Communication / Plan
-
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
12 mins on phone speaking to dtr all ? answered
Neuro Assessment/Plan
Assessment
brain MRI imgs rev'd, neg for acute stroke, report is pending
CTA head/neck imgs and rept rev'd, agree bilateral CEA without restenosis, and right vertebral calcified plaque 50-70% stenosis
Vertigo, appears resolved, and unable to provoke.
vertebral artery stenosis, carotid stenosis s/p CEA, intolerant of atorvastatin, will try rosuvastatin 20 as it is a different [id number] isozyme and patient agreeable. I do not believe his vertigo is VBI because it is not triggered by turning to either
side, and do not recommend any intervention
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 will hold off on Sinemet for now as he
doesn't seem that symptomatic from PD and it could worsen the orthostatic hypotension. with his vasculopathy, it is certainly a balance between symptomatic management, and concerns of fci effects of HTN
Subjective/Objective
Subjective Data
Date of Service: January 17, 2025
no new complaints
Objective Data
Vital Signs
Temp Pulse Resp BP Pulse Ox
36.7 C 71 16 131/84 100
01/17/25 17:18 01/17/25 17:18 01/17/25 17:18 01/17/25 17:18 01/17/25 17:18
Lab Results
01/16/25 07:29
01/16/25 07:29
PT 13.7 Sec (11.4-14.6) 01/15/25 17:34
INR 1.02 01/15/25 17:34
APTT 27.1 Sec (23.4-35.0) 01/15/25 17:34
Sodium 139 mmol/L (135-145) 01/16/25:
Potassium 4.0 mmol/L (3.5-5.1) 01/16/25
BUN 27 mg/dl (9-20) H 01/16/25:
Glucose 123 mg/dl (70-99) H 01/16/25:
Calcium 9.2 mg/dl (8.4-10.2) 01/16/25
LDL Cholesterol, Calc 95 mg/dl 01/16/25:
Patient Allergies
cephalexin monohydrate (From Keflex) Allergy (Verified 01/15/25 16:34)
Hives
clindamycin Allergy (Verified 01/15/25 16:34)
Rash
cyclobenzaprine HCl (From Flexeril) Allergy (Verified 01/15/25 16:34)
palpitations
erythromycin lactobionate (From Erythrocin) Allergy (Verified 01/15/25 16:34)
Hives
hydroxyzine HCl (From Atarax) Allergy (Verified 01/15/25 16:34)
Hives
Penicillins Allergy (Verified 01/15/25 16:34)
Rash
Sulfa (Sulfonamide Antibiotics) Allergy (Verified 01/15/25 16:34)
loose stool
tetracycline Allergy (Verified 01/15/25 16:34)
Unknown
vancomycin Allergy (Verified 01/15/25 16:34)
Unknown
Physical Exam
-
AAOx3, speech clear, language intact
VFF, EOMI, right facial droop
RUE/LE 5-/5, LUE/LE full strength
+bradykinesia, +cogwheel rigidity
gaze is congugate, no skew deviation cover/uncover, no nystagmus
yuliana hallpike negative bilaterally.
neck rotation decreased to left, does not trigger vertigo with rotation either side.
[2025-01-17 20:07] VITALS: BP 114/78; BP 119/78; BP 132/82; PULSE 78; PULSE 79; PULSE 84
[2025-01-17] MEDS: TOPROL XL 50 MG PO (20:37)
[2025-01-17 21:53] LABS: Glucose - Point of Care 107 mg/dl (70-99)
[2025-01-17 23:23] VITALS: BP 111/74
[2025-01-18] VITALS (7 sets, daily range): BP systolic 98–147; BP diastolic 62–88; PULSE 76–82; O2SAT 100
[2025-01-18 07:21] LABS: Glucose - Point of Care 121 mg/dl (70-99)
[2025-01-18] MEDS: HEPARIN 5000 UNITS SC (08:27)
[2025-01-18] MEDS: TOPAMAX 200 MG PO (08:27)
[2025-01-18] MEDS: ASPIRIN 325 MG PO (08:32)
[2025-01-18 10:30] LABS: Hematocrit 45.3 % (39.0-52.0); Hemoglobin 14.7 g/dL (13.0-18.0); Mean Corp Hgb Conc. 32.5 g/dL (33.0-37.0); Mean Corpuscular Volume 89.7 fL (80.0-94.0); Platelet Count 120 10^3/uL (130-400); Red Cell Dist. Width 12.1 % (11.5-14.5)
[2025-01-18 11:24] LABS: Glucose - Point of Care 84 mg/dl (70-99)
--- NOTE | 2025-01-18 13:44 | W.PN.HOSP.TC ---
Today's Communication/Plan
-
Discharge today
Assessment / Plan
Assessment / Plan
Physical Exam
General: Not in acute distress
HEENT: Moist mucous membranes
Respiratory: Clear to Auscultation Bilaterally
Cardiac: S1/S2 and Regular Rhythm
GI: Soft, Non Tender, Non Distended and Normal Bowel Sounds
Musculoskeletal: No Cyanosis and No Edema
Skin: No new leg swelling or tenderness on either the right or left side
Neuro: AO x 3, No Motor Deficits, Nonfocal/grossly intact
Assessment/Plan
69 y/o male with PMH significant for ASCVD, prior CVA and diet-controlled DM who presented to [facility] ED complaining of dizziness / ataxia. Patient stated that he developed dizziness / disorientation / room-spinning sensation this AM while washing
dishes. He reported being unsteady on his feet and with continued dizziness for most of the day thereafter. Friends witnessed his instability and difficulty walking and encouraged him to present to the ED for evaluation.
Patient denied any fall or LOC. He denied any headache or vision changes. He denied any focal numbness or tingling. No difficulty with writing, utensils, etc.
In the ED he stated that he has perhaps mild dizzy sensation at present. He otherwise had no complaints.
Note: Patient avoids many prescriptions medications and states that his Health Center Assistant at [place] has informed him he has 'potential' to be allergic to many novel agents. Hence he refuses many prescription medications.
Patient is a 69y M with PMH significant for ASCVD, AVR and DM-II who presents to ED complaining of dizziness and ataxia throughout the day today.
Dizziness
- ? vestibular origin - though need to rule out CVA / TIA given significant risk factors.
- CT, CT perfusion, CTA are unremarkable in the ED -- showed bilateral CEA without restenosis, and right vertebral calcified plaque 50-70% stenosis
- MRI Brain showed no acute stroke, but did show chronic strokes, chronic intracranial hemorrhage
- Continue ASA 325mg daily (patient declines Plavix).
- Continue Zetia.
- Follow for any new / worsening symptoms.
- PT / Vestibular eval in AM.
- Patient's symptoms are not vertebrobasilar insufficiency since it is not triggered by turning to either side, no intervention recommended by neurology
- Consulted neurology as per PT findings, multiple intracranial stenoses contributing??
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
-Increased blood pressure by stopping metoprolol, starting midodrine, Florinef, Northera, compression garments, etc.
-No Sinemet for now as patient doesn't seem that symptomatic from his Parkinson's, and it could actually worsen the orthostatic hypotension.
Thrombocytopenia
-Needs close outpatient follow-up
-No concerns for new thrombosis
-HIT 4 Ts Score is low
-Recheck CBC outpatient, close follow-up with outpatient PCP
Reported history of 10 strokes, 50 TIA�s, and six seizures (as per patient)
Chronic Strokes
Chronic Intracranial Hemorrhage on Brain MRI
ASCVD
History of Carotid Endarterectomy (Left side, as per patient)
Bilateral CEA
s/p BioAVR
- Continue ASA 325mg, change metoprolol to once daily formulation (as he only takes it once daily), continue Zetia.
- s/p L CEA earlier this year at [facility].
- Patient is intolerant of atorvastatin so switch to Rosuvastatin 20 mg daily
Benign Hypertension
- Stable. Continue metoprolol with changes as noted above.
- Adjust regimen as needed.
Diet-Controlled DM-II
- Glucose controlled and stable. Follow glucose and cover with SSI if needed.
- Diabetic Diet
Asymptomatic Pyuria
- UA in the ED was abnormal with 70-80 WBC and many bacteria.
- Patient has no urinary symptoms / complaints however.
- Observe off of any abx for now.
- Monitor for any new symptoms / complaints.
Migraine Headaches
- Patient is followed at [facility].
- Takes extensive regimen of primarily herbal / supplemental remedies.
- Continue topiramate.
- No headache at present.
Mild mucosal disease in the maxillary sinuses on Brain MRI
DVT Prophylaxis: SCDs. Heparin subq
Code Status: Full Code
More than 30 minutes spent in discharge including
Final examination of the patient
Summarizing hospital stay
Instructions for continuing care to all relevant caregivers
Preparation of discharge records, prescriptions, and referral forms
Total time spent (in minutes): 39
Anticipated Discharge: Today
Subjective/Interval History
-
Date of Service: January 18, 2025
Patient was seen and examined. He denied any new complaints.
Objective Data
-
Labs:
Laboratory Results
01/18/25
09:38
WBC 5.8
Hgb 14.7
Hct 45.3
Plt Count 120 L
Vital Signs:
Vital Signs
Temp Pulse Resp BP Pulse Ox
97 F 69 18 119/73 99
01/18/25 11:13 01/18/25 11:13 01/18/25 11:13 01/18/25 11:13 01/18/25 11:13
I&O
01/17/25 01/18/25 01/19/25
06:59 06:59 06:59
Intake Total 770 / 770 1280 / 1280
Output Total 700 / 700
Balance 770 / 770 580 / 580
--- NOTE | 2025-01-18 16:51 | CM ---
patient seen at bedside
IA completed
CM consult completed VN
PT rec outpatient-patient does not drive, request VN
options reviewed-prefer [facility]
Notified [facility] Liaison - will enter referral
Lives in an apartment, 18 steps to enter
PLOF: independent, cane
DME: cane
Has had [facility] in past, has been at [facility] rehab in past
PCP: Yelitza Rachel
Pharmacy: [facility]
PLAN: home with [facility]
states friend to drive
[2025-01-18] MEDS: CRESTOR 20 MG PO (17:03)
[2025-01-18 17:06] LABS: Glucose - Point of Care 136 mg/dl (70-99)
--- NOTE | 2025-01-18 17:38 | W.DCSUMMARY ---
Discharge Summary
Discharge Data
Date of Admission: 01/15/25
Date of Discharge: 01/18/25
Total time spent discharging patient (in min): 39
-
Pending Results: No
Hospital Course
69 y/o male with past medical history significant for vertebral artery stenosis, carotid stenosis s/p CEA, intolerant of atorvastatin, prior CVA and diet-controlled DM who presented to [facility] ED complaining of dizziness/ataxia. Patient stated that he
developed dizziness / disorientation / room-spinning sensation, on the day of presentation to the ER, while washing dishes. He reported being unsteady on his feet and with continued dizziness for most of the day thereafter. Friends witnessed his
instability and difficulty walking and encouraged him to present to the ED for evaluation. Patient denied any fall or LOC. He denied any headache or vision changes. He denied any focal numbness or tingling. No difficulty with writing, utensils,
etc. Patient was found to have asymptomatic pyuria, but he denied any symptoms of urinary infection and he was a reliable historian. Neurology was consulted and they mentioned that patient's symptoms were not from a vertebrobasilar insufficiency,
but that he had neurogenic orthostatic hypotension from Parkinson's Disease. Patient was doing okay on the day of discharge, and he was stable for discharge to home with home care.
Discharge Plan
-
Patient Disposition: Home with Home Care
Discharge Diagnosis/Procedures: Dizziness
Neurogenic orthostatic hypotension (NOH) secondary to Parkinson's disease
Thrombocytopenia
Reported history of 10 strokes, 50 TIA�s, and six seizures (as per patient)
Chronic Strokes
Chronic Intracranial Hemorrhage on Brain MRI
Atherosclerotic Cardiovascular Disease
History of Carotid Endarterectomy (Left side, as per patient)
Bilateral CEA surgery
status post BioAVR
Benign Hypertension
Diet-Controlled Type 2 Diabetes Mellitus
Asymptomatic Pyuria
Migraine Headaches
Mild mucosal disease in the maxillary sinuses on Brain MRI

CTA Head and Neck Results (as per radiologist's report):
'IMPRESSION:
NECK CTA:
1. 50-70% diameter stenosis of the origin of the right vertebral artery.
2. Less than 50% diameter stenosis in the right proximal-mid ICA.
3. Previous bilateral carotid endarterectomies.
HEAD CTA:
1. Very severe calcific atherosclerotic plaque in both intracranial internal carotid arteries.
2. 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
3. MULTIPLE SEVERE STENOSES (greater than 70% diameter) in the LEFT INTRACRANIAL VERTEBRAL ARTERY.
4. 50-70% diameter stenosis in the right intracranial vertebral artery.
5. Less than 50% diameter stenosis in the basilar artery.
6. 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

Brain MRI (as per radiologist's report):
'IMPRESSION:
1. No MRI evidence for acute infarct.
2. Small chronic ischemic infarcts in the posterior right parietal and occipital lobes.
3. Mild amount of hemosiderin deposition in the medial cortical frausto matter of the right parietal and posterior right frontal lobes consistent with chronic intracranial hemorrhage.
4. Mild diffuse cerebral and cerebellar volume loss.
5. Mild mucosal disease in the maxillary sinuses.'
Condition: Fair
Diet: Low Fat, Low Cholesterol and Diabetic, Carb Controlled
Activity: As tolerated
Driving Restrictions: No driving
Blood Work: CBC, CMP and Magnesium in 2 to 3 days with your outpatient provider
Other Services: PT
Activity Restrictions/Additional Instructions:
It is very, very important for you to see your primary care doctor, Dr. Rachel by 01/22/25.
DISCUSS WITH YOUR PRIMARY CARE PROVIDER REGARDING YOUR NEUROGENIC ORTHOSTATIC HYPOTENSION: Consider addressing orthostatic hypotension by increasing blood pressure by stopping metoprolol (discuss with your doctor first before doing this), starting
midodrine, Florinef, Northera, compression garments, etc.
If you have any new symptoms, call 911 and return to the emergency room right away.
Referrals:
Lori Rachel MD [Family Provider, Internal Medicine] - in three to four days
Referral Note: Hospitalization Follow-Up. Need to check routine labs outpatient by 01/20/25 to 01/22/25. Need to check for thrombocytopenia.
Additional Discharge Medication Instructions: Rosuvastatin 20 mg PO QPM is a new medication.
Prescriptions:
New
rosuvastatin 20 mg Tablet
20 mg PO QPM Qty: 30 2RF
Continued
acetaminophen 325 MG tablet
650 mg PO Q4-6HPRN PRN (Reason: pain/fever)
riboflavin (vitamin B2) [Vitamin B-2] 100 MG tablet
200 mg PO BID
milk thistle 175 MG tablet
175 mg PO TID
magnesium oxide 400 MG tablet
400 mg PO BID
ascorbic acid (vitamin C) [Vitamin C] 500 MG tablet
500 mg PO DAILY
metoprolol tartrate 50 MG tablet
50 mg PO HS
cholecalciferol (vitamin D3) [Vitamin D3] 1,000 UNIT capsule
2,000 unit PO BID
omega 6-bwl-ols-fish oil 1 EACH capsule
1 ea PO DAILY
Cranberry
4,200 mg PO BID
Denatured [place]
175 mg PO BID
Rosa
1,200 mg PO DAILY
topiramate 200 MG tablet
200 mg PO BID
Saw [place]
1 cap PO BID
Turmeric
60 mg PO DAILY
aspirin 325 mg Tablet,Delayed Release (Dr/Ec)
325 mg PO DAILY
ezetimibe 10 mg tablet
10 mg PO DAILY
Discharge Orders:
Discharge Patient (As Directed); Ordered 01/18/25
Ordered By: David Khalil
Discharge Date and Time
Discharge Date/Time: 01/18/25 18:01
Print Language: MOHAWK
--- NOTE | 2025-01-18 17:52 | PTCARENOTE ---
Discharge instructions reviewed with patient and patient's daughter. Home medications returned from pharmacy. Evening dose of Crestor administered prior to discharge. IV removed. Tele removed. Patient wheeled down, by this RN, for discharge to home,
with daughter.
== END 2025-01-18 18:01 | disposition home health service (06) ==
LOC: 4 WEST ACU 20:01
PROVIDERS: Student in an Organized Health Care Education/Training Program; ADMITTING PHYSICIAN Hospitalist; ATTENDING PHYSICIAN Hospitalist; CONSULT PHYSICIAN Psychiatry & Neurology Clinical Neurophysiology; EMERGENCY PHYSICIAN Emergency Medicine; FAMILY PHYSICIAN Family Medicine
DX: R42 Dizziness and giddiness (principal); I25.10 Atherosclerotic heart disease of native coronary artery without angina pectoris; G90.3 Multi-system degeneration of the autonomic nervous system; I10 Essential (primary) hypertension; E11.9 Type 2 diabetes mellitus without complications; R82.81 Pyuria; G43.909 Migraine, unspecified, not intractable, without status migrainosus; F31.9 Bipolar disorder, unspecified; G20.A1 Parkinson's disease without dyskinesia, without mention of fluctuations; Z79.899 Other long term (current) drug therapy; Z79.82 Long term (current) use of aspirin; D69.6 Thrombocytopenia, unspecified; Z86.73 Personal history of transient ischemic attack (TIA), and cerebral infarction without residual deficits
CPT/HCPCS: 0042T; 70450; 70496; 70498; 70551; 80048; 80053; 80061; 81003; 81015; 82962; 84484; 85025; 85027; 85610; 85652; 85730; 87086; 87147; 87186; 93005; 97163; 97166; 97530; 99291; G0378; Q9967

== ENCOUNTER 2025-02-04 22:56 | Observation (INO) | payer MEDICARE, SELFPAY ==
[2025-02-04 17:37] VITALS: BP 157/102
[2025-02-04 19:56] VITALS: BP 135/82
[2025-02-04 20:00] VITALS: BP 123/83
[2025-02-04 20:37] LABS: Hematocrit 40.7 % (39.0-52.0); Hemoglobin 13.6 g/dL (13.0-18.0); Mean Corp Hgb Conc. 33.4 g/dL (33.0-37.0); Mean Corpuscular Volume 87.5 fL (80.0-94.0); Nucleated Red Blood Cells % 0 % (-); Platelet Count 149 10^3/uL (130-400); Red Cell Dist. Width 12.3 % (11.5-14.5)
[2025-02-04 20:40] LABS: ALT (SGPT) 28 U/L (0-50); AST (SGOT) 23 U/L (17-59); Albumin 4.8 g/dl (3.5-5.0); Alkaline Phosphatase 51 U/L (38-126); Blood Urea Nitrogen 41 mg/dl (9-20); Calcium 9.4 mg/dl (8.4-10.2); Carbon Dioxide 21 mmol/L (22-30); Chloride 107 mmol/L (98-107); Glucose 101 mg/dl (70-99); Magnesium 2.1 mg/dl (1.6-2.3); Potassium 3.8 mmol/L (3.5-5.1); Sodium 138 mmol/L (135-145); Total Protein 7.6 g/dl (6.3-8.2); eGFR 59.10
[2025-02-04 20:49] LABS: Troponin I < 0.012 ng/ml
[2025-02-04 21:00] VITALS: BP 116/76
--- NOTE | 2025-02-04 21:29 | ED.GENMED ---
History of Present Illness
General
Chief Complaint: Fainting/Passed Out
Source: patient, records and family
Exam Limitations: none
Time Seen by Provider: 02/04/25 19:57
Nursing documentation reviewed up to this point in time: agreed with
History of Present Illness
History of Present Illness:
69-year-old male with a past medical history as noted presents to the ER for evaluation after loss of consciousness. Patient reports that he was at home resting sitting in the chair when he suddenly passed out. He says that the next thing he
remembers he was on the floor and 3 hours had passed. He cannot account for any of that time. He says that he had a scrape on his forehead suggesting that he hit his head on the ground but cannot recall this. He says he has had very mild
headache. He denies any chest pain, shortness of breath or palpitations. He denies any other acute complaints. He did just have recent admission 01/15 until 01/18 after an episode of dizziness that was ultimately attributed to dysautonomia in the
setting of Parkinson's disease. He does have known history of significant vascular disease including carotid stenosis and vertebral stenosis.
Past History
Past History
ED Past Medical History: HTN, Hypercholesterolemia, IDDM, Valvular disease and Other (Migraines)
ED Past Surgical History: Cardiac (Aortic valve replacement 2016, [facility] [place])
Social History
Tobacco: Non-smoker
Alcohol: None
Drug: None
Personal:
Living: with family
Employment: Retired
Review of Systems
Review of Systems
All Other Systems: ROS reviewed and negative except as documented in HPI and ROS
Constitutional: Denies fever
Respiratory: Denies trouble breathing
Cardiac: Denies chest pain or palpitations
ABD/GI: Denies abdominal pain or nausea
: Denies flank pain
Musculoskeletal: Denies neck pain or back pain
Neurological: Reports headache and other (Loss of consciousness); Denies dizzy
Phy Exam
Physical Exam
Physical Exam:
General: Awake, alert, oriented x3; no acute distress
Head: Normocephalic, minor superficial abrasion to the forehead
Eyes: Conjunctiva normal, EOMI, pupils are equal round and reactive to light bilaterally
Throat: Airway intact, handling secretions, poor dentition
Neck: Trachea midline, supple without meningismus
Lungs: Clear to auscultation bilaterally, no wheezing, rales, rhonchi
Heart: Regular rate and rhythm, systolic murmur noted
Abd: Soft, non distended, nontender
Neuro: Cranial nerves intact, speech fluid, motor and sensory intact in all extremities
Skin: no rash
Extremities: Trace edema in the legs, extremities are warm and well-perfused
Scores
Heart Failure Risk
Heart Failure Risk Score: Not Applicable
Heart Score for Chest Pain Patients
STEMI patient?: Not applicable
Withdrawal Assessment of Alcohol
Withdrawal Assessment Completed?: Not applicable
Course
Orders/Labs/Results
Orders:
Orders
02/04/25 17:42
Electrocardiogram (*1) Urgent
Reason for Study: Syncope
EKG- Treatment ONCE
02/04/25 20:12
CPK [Creatine Phosphokinase] Urgent
Complete Blood Count/With Diff Urgent
Comprehensive Metabolic Panel Urgent
Lactate Level [Lactic Acid] Urgent
Magnesium Urgent
Troponin I Urgent
02/04/25 20:14
CT Head W/o Iv Contrast Urgent
Comment:
Reason For Exam: loos of consciousness, head strike, amnesia
Abnormal Lab Results
02/04/25
20:12
RBC 4.65 L 10^6/uL
(4.70-6.10)
Absolute Monos (auto) 0.7 H 10^3/uL
(0.1-0.6)
Carbon Dioxide 21 L mmol/L
(22-30)
BUN 41 H mg/dl
(9-20)
Glucose 101 H mg/dl
(70-99)
02/04/25 20:12
02/04/25 20:12
Vital Signs
Initial and Last Documented VS:
Initial Vital Signs
Temp Pulse Resp BP Pulse Ox
36.6 C 84 16 157/102 99
02/04/25 17:37 02/04/25 17:37 02/04/25 17:37 02/04/25 17:37 02/04/25 17:37
Last Documented Vital Signs
Temp Pulse Resp BP Pulse Ox
36.6 C 83 22 116/76 100
02/04/25 17:37 02/04/25 21:00 02/04/25 21:00 02/04/25 21:00 02/04/25 20:01
MDM/Problems Addressed
Differential Diagnosis Includes:
Loss of consciousness: Dysrhythmia unlikely given the extent of time for which patient cannot account; could be seizure with postictal period; stroke/vertebro basilar issues are consideration as well; hypoglycemia, polypharmacy
MDM/Problems Addressed:
69-year-old male presents after an episode of loss of consciousness that occurred while he was resting in the chair. He cannot account for about 3 hours of time. Mild headache but generally feels well here. Hypertensive but otherwise normal
vitals. Physical exam as above. Will check an EKG, labs including a CBC and a CMP. Check CPK. Will check CT of the head. Will monitor closely reassess after the above.
Labs reviewed: CBC unremarkable, CMP no clinically significant abnormalities. Troponin undetectable. CT head no acute abnormalities. Patient clinically stable on reassessment. Unclear etiology to extensive loss of time this afternoon, will plan
to admit for continued evaluation, consider neurology consultation regarding possibility of seizure or vertebrobasilar disease. Discussed case with hospitalist.
Chronic conditions affecting care:
Diabetes, CKD, vascular disease, strokes, Parkinsons
Acute Exacerbation and/or Progression of Chronic Illness:
Acutely hypertensive resolved without invention no emergent antihypertensives indicated at this point
Acute Exacerbation and/or Progression of Chronic Illness: HTN
*Radiology
Radiology exam reviewed: radiology read reviewed
*Pulse Oximetry
SaO2: 100
Oxygen Mode of Delivery: Room air
Patient hypoxic: no (100%)
*EKG
Interpreted by ED Provider?: Yes
Heart Rate: 78
Rate: normal
Rhythm: sinus
Beacon: normal axis
Interval: first degree heart block
QRS Pattern: normal QRS
Ischemia: no ischemia
*Critical Care Note
Total Time (30-74mins, 75-104mins- exclusive of procedures): Not Applicable
Data Reviewed
Review of Other/Old Records Reveals: Labs, Records and Discharge Summary
Source: patient, records and family
Patient Management
Discussion with other providers: Hospitalist (Discussed with hospitalist)
Escalation/DeEscalation of care consider admission/obs:
Admission indicated
ED Attending Note
-
Portions of this chart may have been created with voice recognition software.� Occasional wrong word or��sound alike� substitutions may have occurred due to the inherent limitations of voice recognition software.
Discharge Plan
Departure
Patient Disposition: Admit
Date of Disposition: 02/04/25
Time of Disposition: 21:37
Admit to doctor: Eder
Presentation/result/management discussed w/ accepting MD/DO: Hospitalist
Discharge Problem:
Loss of consciousness
Prescriptions:
No Action
acetaminophen 325 MG tablet
650 mg PO Q4-6HPRN PRN (Reason: pain/fever)
riboflavin (vitamin B2) [Vitamin B-2] 100 MG tablet
200 mg PO BID
milk thistle 175 MG tablet
175 mg PO TID
magnesium oxide 400 MG tablet
400 mg PO BID
ascorbic acid (vitamin C) [Vitamin C] 500 MG tablet
500 mg PO DAILY
metoprolol tartrate 50 MG tablet
50 mg PO HS
cholecalciferol (vitamin D3) [Vitamin D3] 1,000 UNIT capsule
2,000 unit PO BID
omega 3-kxe-jbe-fish oil 1 EACH capsule
1 ea PO DAILY
Cranberry
4,200 mg PO BID
Denatured [place]
175 mg PO BID
Rosa
1,200 mg PO DAILY
topiramate 200 MG tablet
200 mg PO BID
Saw [place]
1 cap PO BID
Turmeric
60 mg PO DAILY
aspirin 325 mg Tablet,Delayed Release (Dr/Ec)
325 mg PO DAILY
ezetimibe 10 mg tablet
10 mg PO DAILY
rosuvastatin 20 mg Tablet
20 mg PO QPM Qty: 30 2RF
Referrals:
Lori Rachel MD [Family Provider, Internal Medicine]
Interventions
Interventions:
*Risk Screen - Suicide Last Done: 02/04/25 17:37
*General Assessment Last Done: 02/04/25 20:01
*Neglect/Abuse Screening Last Done: 02/04/25 17:37
*ED- Fall Risk Assessment Last Done: 02/04/25 20:01
*ED COVID-19 Vaccine History Last Done: 02/04/25 20:01
ED- Cardiac Assessment Last Done: 02/04/25 20:01
ED- Neurological Assessment Last Done: 02/04/25 20:01
Discharge Date and Time
Print Language: HUNGARIAN
--- NOTE | 2025-02-04 21:50 | HPS.HSE ---
Family Physician
-
Family Physician: Lori Rachel
Chief Complaint
-
Fainting episode
History of Present Illness
This is a 69-year-old with past medical history significant for Parkinson's disease, hypertension, hyperlipidemia, neurogenic orthostatic hypotension secondary to Parkinson's, history of atherosclerotic disease including carotid stenosis status post
bilateral carotid endarterectomy, history of chronic strokes, history of AAS status post bioprosthetic aortic valve replacement presenting to the emergency department following a syncopal episode at home.
Patient reported that ER was in usual state of health. he performed his usual amount of mild morning activity and food intake. He said that around 1 PM he was sitting down listening to radio and then the next thing he knew he woke up at 4 PM on
the floor with broken plastic around him. He denied having any prior symptoms before the fall. He did not remember trying to get up from the chair. When he fell he was laying right next to the chair.
He reports bruising the right side of his forehead as well as his hands.
Patient reported having similar fall some loss of consciousness about 2 days prior. Did not come to the emergency department at time because he did not really remember losing consciousness. He denies prior loss of consciousness but it looks like
he has been worked up for prior syncopal episodes of stroke with monitoring in the past.
Denies any new urinary symptoms including frequency or urgency incontinence or dysuria. Denies fevers or chills. He denies any recent episodes of diarrhea, melena or hematochezia. Denies having any chest pain palpitations. He has chronic
orthostatic symptoms for which he been managed by behavioral changes and he reports no new no medication changes. During his last admission he said that he was placed on rosuvastatin at the time of discharge.
In in the emergency department he was afebrile, blood pressure was 116/76 with a pulse of 83 and was satting 100% on room air. ECG shows first-degree AV block at a rate of [address] or T wave changes. Troponin was negative. CT of
the head shows no acute interval changes. CBC was completely unchanged and unremarkable. Electrolytes BUN/creatinine were unchanged from prior.
Medical History
Past Medical History
Past Medical History: Reports Other
Additional Past Medical History:
ASCVD (CAD, CVA, Carotid Stenosis)
Aortic Stenosis s/p AVR
Hypertension
DM-II
Migraine / Chronic Headaches (followed at [facility])
Bipolar Disorder
Past Surgical History: Reports Other
Additional Past Surgical History:
Left CEA
Porcine AVR
Inguinal Herniorrhaphy
Appendectomy
Social History
Tobacco: Non-smoker
Alcohol: None
Drug: None
Family History
Family History: Not pertinent
Allergies / Home Medications
Allergies reflects when Allergies were last updated in [facility].
Home Medications with original date entered in [facility]
Allergy/Medication List:
Allergies
Allergy/AdvReac Type Severity Reaction Status Date / Time
cephalexin monohydrate (From Allergy Hives Verified 01/15/25 16:34
Keflex)
clindamycin Allergy Rash Verified 01/15/25 16:34
cyclobenzaprine HCl (From Allergy palpitation Verified 01/15/25 16:34
Flexeril) s
erythromycin lactobionate Allergy Hives Verified 01/15/25 16:34
(From Erythrocin)
hydroxyzine HCl (From Atarax) Allergy Hives Verified 01/15/25 16:34
Penicillins Allergy Rash Verified 01/15/25 16:34
Sulfa (Sulfonamide Allergy loose stool Verified 01/15/25 16:34
Antibiotics)
tetracycline Allergy Unknown Verified 01/15/25 16:34
vancomycin Allergy Unknown Verified 01/15/25 16:34
Home Medications
Cranberry 4,200 mg PO BID 11/18/15
Denatured Butterbur 175 mg PO BID 11/18/15
Rosa 1,200 mg PO DAILY 11/18/15
Saw [place] 1 cap PO BID 11/18/15
Turmeric 60 mg PO DAILY 11/18/15
acetaminophen 325 mg tablet 650 mg PO Q4-6HPRN PRN pain/fever 11/18/15
ascorbic acid (vitamin C) 500 mg tablet (Vitamin C) 500 mg PO DAILY 11/18/15
cholecalciferol (vitamin D3) 25 mcg (1,000 unit) capsule (Vitamin D3) 2,000 unit PO BID 11/18/15
magnesium oxide 400 mg (241.3 mg magnesium) tablet 400 mg PO BID 11/18/15
metoprolol tartrate 50 mg tablet 50 mg PO HS 11/18/15
milk thistle 175 mg tablet 175 mg PO TID 11/18/15
omega 7-opo-ugs-fish oil 500 mg (200mg-300mg)-1,000 mg capsule 1 ea PO DAILY 11/18/15
riboflavin (vitamin B2) 100 mg tablet (Vitamin B-2) 200 mg PO BID 11/18/15
topiramate 200 mg tablet 200 mg PO BID 11/18/15
aspirin 325 mg tablet,delayed release 325 mg PO DAILY 11/29/24
Review of Systems
-
Constitutional: Reports No Symptoms
EENT: Reports No Symptoms
Respiratory: Reports No Symptoms
Cardiac: Reports No Symptoms
Abdomen/GI: Reports No Symptoms
: Reports No Symptoms
Musculoskeletal: Reports No Symptoms
Skin: Reports No Symptoms
Neurological: Reports No Symptoms
Endocrine: Reports No Symptoms
Hematologic/Lymphatic: Reports No Symptoms
Psych: Reports No Symptoms
Physical Exam
Vital Signs
Vital Signs
Temp Pulse Resp BP Pulse Ox
97.9 F 83 22 116/76 100
02/04/25 17:37 02/04/25 21:00 02/04/25 21:00 02/04/25 21:00 02/04/25 21:37
Physical Exam
General: Well Developed and No Apparent Distress
HEENT: Moist mucous membranes, PERRLA and Other (Poor dentition); No Oxygen
Respiratory: Clear; No Wheezes, Rales or Rhonchi
Cardiac: S1/S2 and Regular Rhythm; No Murmur, Rub, Gallop or Peripheral Edema
GI: Soft, Non Tender, Non Distended and Normal Bowel Sounds
Musculoskeletal: No Clubbing, No Cyanosis and No Edema
Skin: Warm and Dry
Neuro: AO x 3, No Motor Deficits and Nonfocal/grossly intact
Psych: Calm
Laboratory Results
-
02/04/25 20:12
02/04/25 20:12
Laboratory Results
Lactic Acid 0.8 mmol/L (0.7-2.0) 02/04/25 20:12
Total Bilirubin 0.4 mg/dl (0.2-1.3) 02/04/25 20:12
AST 23 U/L (17-59) 02/04/25 20:12
ALT 28 U/L (0-50) 02/04/25 20:12
Alkaline Phosphatase 51 U/L (38-126) 02/04/25 20:12
Troponin I < 0.012 ng/ml 02/04/25 20:12
Data Reviewed
-
CT Scan: Report Reviewed by me
Medical Tests (Nuc Med, Echo, EKG etc): Image Personally Visualized and interpreted
Lab Data: Labs Reviewed by me
Old Records: Reviewed
Impression/Plan
-
IMPRESSION:
69-year-old with history of arthrosclerotic disease with prior strokes, Parkinson's disease with neurogenic prostatic hypotension, hypertension, hyperlipidemia presenting to the emergency department with syncopal episode that was unwitnessed. He
had no focal neurological deficits. No obvious signs of an acute infection. He has no cardiac ischemia or obvious arrhythmia on EKG. He was seen for dizziness in early january thought to be mediated by parkinsonian orthostasis. Found to have
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
cerebral artery and MULTIPLE SEVERE STENOSES (greater than 70% diameter) in the LEFT INTRACRANIAL VERTEBRAL ARTERY, 50-70% diameter stenosis in the right intracranial vertebral artery. The intracranial lesions which seem more prominent here are
not amenable to revascularization
PLAN:
Syncope -1 episode of syncope this afternoon, prior episode about 2 days ago that was also unwitnessed. Initial workup in the ED was unremarkable. Given hx of prior dizziness and vertigo, these symptoms could represent drop attacks. At this time
patient cannot associate symptoms to any specific preceding event to allow for significant correlation.
- Admit to telemetry observation
- Orthostatics and evalaute symptoms with orthostatic changes
- IV fluids overnight
- Echocardiogram
- EEG
- consider outpatient holter
- was recently seen by neurology and felt symptoms not due to vertebro-basilar insufficiency
- PT OT
- Case management
Atherosclerotic cardiovascular disease
- Continue with statin and aspirin
- Continue metoprolol
Seizure disorder
- Continue topiramate
DVT prophylaxis�Lovenox subcu
CODE STATUS�full code
[2025-02-04 22:00] VITALS: BP 111/85
[2025-02-04] MEDS: NSS 500 IV (22:55)
[2025-02-04] MEDS: NSS 1000 IV (23:42)
[2025-02-04 23:44] VITALS: BP 127/76; BMI 26.1
[2025-02-05] VITALS (8 sets, daily range): BP systolic 124–164; BP diastolic 75–117; PULSE 86–94
--- NOTE | 2025-02-05 00:54 | PTCARENOTE ---
pt admitted to 420, placed on tele #21. admission assessment completed, pt screened positive for suicidal thoughts, no active plan, hx of 1 attempt years ago by taking pills. CONTINUOUS ABSORPTION PROCESS OPERATOR and nursing volunteer services supervisor notified at 0017 for 1:1 care. pt informed of
need for 1:1 and verb understanding. pt oriented to room, poc and call briones
[2025-02-05 03:21] LABS: Urine Character Slightly Cloudy (Clear)
[2025-02-05 03:46] LABS: Urine Red Blood Cell 0-2 /HPF (0-2); Urine Squamous Cell 0-2 /LPF (Few)
[2025-02-05 03:47] LABS: Urine White Cell >100 /HPF (0-5)
--- NOTE | 2025-02-05 08:20 | VNURNOTE ---
Chart reviewed. Patient is current with [facility]. Will continue to follow hospital course and DC plans.
[2025-02-05] MEDS: ASPIRIN 325 MG PO (09:04)
[2025-02-05] MEDS: TOPAMAX 200 MG PO ×2 (09:04→20:06)
[2025-02-05] MEDS: MAGNESIUM OXIDE 400 MG PO ×2 (09:04→20:06)
[2025-02-05] MEDS: ZETIA 10 MG PO (09:04)
[2025-02-05 09:06] LABS: Hematocrit 39.4 % (39.0-52.0); Hemoglobin 13.2 g/dL (13.0-18.0); Mean Corp Hgb Conc. 33.5 g/dL (33.0-37.0); Mean Corpuscular Volume 87.6 fL (80.0-94.0); Platelet Count 125 10^3/uL (130-400); Red Cell Dist. Width 12.1 % (11.5-14.5)
[2025-02-05 09:27] LABS: Blood Urea Nitrogen 31 mg/dl (9-20); Calcium 8.7 mg/dl (8.4-10.2); Carbon Dioxide 22 mmol/L (22-30); Chloride 113 mmol/L (98-107); Estimated Creatinine Clearance 71 ml/min; Glucose 125 mg/dl (70-99); Magnesium 1.9 mg/dl (1.6-2.3); Potassium 4.1 mmol/L (3.5-5.1); Sodium 141 mmol/L (135-145); eGFR > 60.00
[2025-02-05 09:58] LABS: TSH 0.53 uIU/ml (0.47-4.68)
--- NOTE | 2025-02-05 10:59 | CM ---
CM reviewed chart, patient see bedside, currently on 1:1. Initial assessment completed.
Patient is a 69-year-old with past medical history significant for Parkinson's disease, hypertension, hyperlipidemia, neurogenic orthostatic hypotension secondary to Parkinson's, history of atherosclerotic disease including carotid stenosis status
post bilateral carotid endarterectomy, history of chronic strokes, history of AAS status post bioprosthetic aortic valve replacement presenting to the emergency department following a syncopal episode at home.
Patient resides independent in an apartment, second floor, 19 steps up, no elevator access. Patient is submitting application to move to first level.
Patient has a cane at home, inquiring about obtaining a walker.
Patient confirms current with [facility].
PCP Yelitza Rachel, Pharmacy [facility], confirms prescription coverage.
Patient denies insecurities at home, confirms he utilizes the food bank that is local to patient.
[facility] form verbally reviewed, provided with copy, placed in chart.
Reviewed with Hospitalist, will place Pysch consult.
CM will continue to follow for all d/c planning needs.
[facility]
--- NOTE | 2025-02-05 12:31 | W.PN.HOSP.TC ---
Today's Communication/Plan
-
see outlined plan below
Assessment / Plan
Assessment / Plan
Assessment:
Syncopal episodes
- ddx: orthostasis, vs arrhythmia, vs neurogenic in setting of PD vs vagal vs other
- slightly orthostatic positive; provide IVF and add compression therapy
- consider midodrine/Florinef
- monitor tele
- Echo
- PT/OT - home health recommended
UTI
- start Levaquin day 1, follow cultures
Vertigo
- recent neuroimaging testing was negative for VBI
- prn Meclizine
- PT/Vestibular therapy
Suicidal ideation without plan
- Psych to evaluate; have ok'd discontinuing 1:1
Chronic CVAs
Hx of TIAs
Hx of Seizures
HX of migraines
- continue ASA/Statin/Zetia
- continue topiramate
s/p BioAVR
Essential HTN
- hold BB
Type 2 DM
- diet controlled
DVT ppx: SCDs
Code: Full
Anticipated Discharge: > 48 hours
Subjective/Interval History
-
Date of Service: February 05, 2025
reports vertigo with sitting, improved with laying
denies concurrent sob, chest pain, palpitations
Objective Data
-
Labs:
Laboratory Results
02/05/25
08:47
WBC 6.5
Hgb 13.2
Hct 39.4
Plt Count 125 L
Sodium 141
Potassium 4.1
Chloride 113 H
Carbon Dioxide 22
BUN 31 H
Creatinine 1.1
Glucose 125 H
Calcium 8.7
Vital Signs:
Vital Signs
Temp Pulse Resp BP Pulse Ox
97.8 F 85 18 146/88 99
02/05/25 11:18 02/05/25 11:18 02/05/25 11:18 02/05/25 11:18 02/05/25 11:18
Physical Exam
-
General: No Apparent Distress
HEENT: Normocephalic and Atraumatic
Respiratory: Negative Wheezes
Cardiac: Regular Rhythm and S1/S2
GI: Soft
Genito-urinary: No Costovertebral Tender
Neuro: AO x 3
Psych: Calm
Data Reviewed
-
Total Time Spent with Patient (in minutes): 42
Labs: Labs Reviewed by me
--- NOTE | 2025-02-05 13:35 | EEG.RPT ---
Electroencephalogram Report
Recording
Date of EE02/05/25
Type of EEG: Routine
Length of EEG recordin minutes
Done with Video Recording: Yes
Patient Status: Inpatient
Recording Conditions: Awake and Drowsy
Hyperventilation Performed: No
Photic Stimulation Performed: Yes
Report
LESS THAN 1 HOUR REPORT
LESS THAN 1 HOUR EEG INTERPRETATION:
Mildly abnormal EEG for age mild diffuse bihemispheric slowing
CLINICAL CORRELATION:
This study was suggestive of diffuse cortical dysfunction without focal abnormality. No seizures were recorded. If concerns remain regarding seizures, consideration for prolonged EEG recording may be given.
Clinical correlation is advised.
METHODS:
A 21 channel digitized electroencephalogram (EEG) was performed in the Clinical Neurophysiology Laboratory. The 10/20 international system of electrode placement was used with ECG and lateral/vertical eye movements recorded. The [employer] quantitative
measurement system was utilized.
QUALITY OF STUDY:
Good
ELECTROENCEPHALOGRAPHER IMPRESSION(S):
Background
Medium amplitude fairly to poorly organized anterior-posterior voltage gradient of theta maximal activity
There were no significant asymmetries of background activity noted.
Sleep
Drowsiness present
Photic Stimulation
Failed to activate the record
ECG
Normal sinus rhythm
[2025-02-05] MEDS: LEVAQUIN 100 IV (14:02)
[2025-02-05] MEDS: ANTIVERT 25 MG PO (15:33)
--- NOTE | 2025-02-05 15:40 | CS.PSYCHR ---
Consult Summary - Psychiatry
-
pt seen in consultation for suicidal ideation
69 yo man admitted for syncopal episode, has has 'at least 10 stodes and 50 TIAs' per pt, here for assessment. On screening answered truthfully that he has though about suicide 'like everybody does at one time or other' but that he is not intent on
it at this time.
Has had long history of emotional turmoil, diagnosed at one point as bipolar 2, but not treated with any medication. Has had therapy in past from [facility], is on waiting list to start back. Goes to the [facility] support group there often.
Lives alone, from when she inherited a house from her sister; pt stayed in their apt, she went to house. Pt now considers that a poor move, since he has been alone after falling out and is thinking about how to be sure he is not alone
in the future.
Has history of aortic valve disease with replacement in 2009, believes he will likely need a new one soon.
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 Proudly tells of winning a suit against the [employer] who
tries to stop him from distributing food to homeless.
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 age 19, three children five grandchildren. from , get along better now.
Family history of mental illness, alcohol use in sister and father; sister by suicide as she was about to be arrested for embezzling due to her gambling addiction, which ruined her family financially.
On exam: lying in bed, wd/wn. Missing many of his teeth--states this happened early in life when he lost balance and fell, hitting mouth on friend's nail puller case. Waiting till all fall out or need to be pulled with plan for dentures. Pleasant,
cooperative, garrulous, somewhat circumstantail but coherent, relevant. Affect reactive through full range. No current suicidal ideation. Good insight/judgement. No gross cognitive impairment
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 No indication for medication or 1:1 at this time
[2025-02-05] MEDS: LOVENOX 40 MG SC (17:27)
[2025-02-05] MEDS: CRESTOR 20 MG PO (17:27)
[2025-02-06 03:02] VITALS: BP 126/78
[2025-02-06 07:00] VITALS: BP 112/72; BP 119/77; BP 126/74; PULSE 72; PULSE 75; PULSE 83
[2025-02-06 08:00] VITALS: BP 112/72; BP 119/77; BP 126/74; PULSE 72; PULSE 75; PULSE 83
[2025-02-06] MEDS: ASPIRIN 325 MG PO (08:20)
[2025-02-06] MEDS: TOPAMAX 200 MG PO ×2 (08:20→20:11)
[2025-02-06] MEDS: MAGNESIUM OXIDE 400 MG PO ×2 (08:20→20:11)
[2025-02-06] MEDS: ZETIA 10 MG PO (08:21)
[2025-02-06 08:55] LABS: Hematocrit 41.8 % (39.0-52.0); Hemoglobin 13.8 g/dL (13.0-18.0); Mean Corp Hgb Conc. 33.0 g/dL (33.0-37.0); Mean Corpuscular Volume 88.0 fL (80.0-94.0); Platelet Count 138 10^3/uL (130-400); Red Cell Dist. Width 12.2 % (11.5-14.5)
[2025-02-06] MEDS: LEVAQUIN 100 IV (09:48)
[2025-02-06 10:05] LABS: Blood Urea Nitrogen 25 mg/dl (9-20); Calcium 9.3 mg/dl (8.4-10.2); Carbon Dioxide 23 mmol/L (22-30); Chloride 110 mmol/L (98-107); Estimated Creatinine Clearance 71 ml/min; Glucose 121 mg/dl (70-99); Potassium 4.2 mmol/L (3.5-5.1); Sodium 141 mmol/L (135-145); eGFR > 60.00
[2025-02-06 11:13] VITALS: BP 121/71
--- NOTE | 2025-02-06 11:40 | W.PN.HOSP.TC ---
Today's Communication/Plan
-
prn Midodrine
Levaquin pending final cultures
Assessment / Plan
Assessment / Plan
Assessment:
Syncopal episodes
- ddx: orthostasis, vs arrhythmia, vs neurogenic in setting of PD vs vagal vs other
- slightly orthostatic positive on 02/05; provided IVF and added compression therapy
- repeat orthostatics 02/06; normal readings
- make midodrine prn
- monitor tele
- Echo: prosthetic valve thickening otherwise normal study
- PT/OT - home health recommended
UTI
- continue Levaquin day 2, follow cultures
Vertigo
- recent neuroimaging testing was negative for VBI
- prn Meclizine
- PT/Vestibular therapy, OT - home VN ordered
Suicidal ideation without plan
- Psych evaluated and diagnosed cyclothymia; have ok'd discontinuing 1:1
Chronic CVAs
Hx of TIAs
Hx of Seizures
HX of migraines
- continue ASA/Statin/Zetia
- continue topiramate
s/p BioAVR
Essential HTN
- stop BB with neurogenic orthostasis from Parkinsons
Type 2 DM
- diet controlled
DVT ppx: SCDs
Code: Full
Anticipated Discharge: 24 - 48 hours
Subjective/Interval History
-
Date of Service: February 06, 2025
reports some dizziness when standing but able to safely ambulate with cane to door
no cp or sob
Objective Data
-
Labs:
Laboratory Results
02/06/25
07:44
WBC 6.0
Hgb 13.8
Hct 41.8
Plt Count 138
Sodium 141
Potassium 4.2
Chloride 110 H
Carbon Dioxide 23
BUN 25 H
Creatinine 1.1
Glucose 121 H
Calcium 9.3
Vital Signs:
Vital Signs
Temp Pulse Resp BP Pulse Ox
97.6 F 72 16 121/71 99
02/06/25 11:13 02/06/25 11:13 02/06/25 11:13 02/06/25 11:13 02/06/25 11:13
I&O
02/05/25 02/06/25 02/07/25
06:59 06:59 06:59
Intake Total 1929 1440 / 1440
Balance 1929 1440 / 1440
Physical Exam
-
General: No Apparent Distress
HEENT: Normocephalic and Atraumatic
Respiratory: Negative Wheezes
Cardiac: Regular Rhythm and S1/S2
Neuro: AO x 3
Psych: Calm
Data Reviewed
-
Total Time Spent with Patient (in minutes): 41
Labs: Labs Reviewed by me
[2025-02-06 15:31] VITALS: BP 110/68
[2025-02-06] MEDS: LOVENOX 40 MG SC (17:04)
[2025-02-06] MEDS: CRESTOR 20 MG PO (17:04)
[2025-02-06 20:13] VITALS: BP 128/83
[2025-02-07] VITALS: BP 119/76
[2025-02-07 03:36] VITALS: BP 108/74
[2025-02-07 07:36] VITALS: BP 133/81
[2025-02-07 08:10] VITALS: BP 110/75; BP 130/77; BP 130/80; PULSE 106; PULSE 95; PULSE 98
[2025-02-07] MEDS: TOPAMAX 200 MG PO (08:17)
[2025-02-07] MEDS: ASPIRIN 325 MG PO (08:17)
[2025-02-07] MEDS: MAGNESIUM OXIDE 400 MG PO (08:18)
[2025-02-07] MEDS: LEVAQUIN 100 IV (08:18)
[2025-02-07] MEDS: ZETIA 10 MG PO (08:18)
[2025-02-07 08:46] LABS: Hematocrit 42.3 % (39.0-52.0); Hemoglobin 13.9 g/dL (13.0-18.0); Mean Corp Hgb Conc. 32.9 g/dL (33.0-37.0); Mean Corpuscular Volume 87.8 fL (80.0-94.0); Platelet Count 116 10^3/uL (130-400); Red Cell Dist. Width 12.4 % (11.5-14.5)
[2025-02-07 09:07] LABS: Blood Urea Nitrogen 25 mg/dl (9-20); Calcium 9.3 mg/dl (8.4-10.2); Carbon Dioxide 23 mmol/L (22-30); Chloride 109 mmol/L (98-107); Estimated Creatinine Clearance 65 ml/min; Glucose 128 mg/dl (70-99); Potassium 4.1 mmol/L (3.5-5.1); Sodium 138 mmol/L (135-145); eGFR > 60.00
--- NOTE | 2025-02-07 10:42 | W.PN.UPDATE ---
Update Note
Progress Note Update
Patient seen by me on 02/07/2025 from 10am to 10:10am.
Follow by psychiatry after admission to during screening. Patient reports feeling well overall today. He slept well last night. He denies active or passive suicidal ideations at this time. He denies manic or psychotic symptoms. He states he has a
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
MSE- good eye contact. poor dentition. pleasant and cooperative. circumstantial thought process. affect normal range. Denies SI. Good I/J.
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 No need for psychiatric medications. He is on the waitlist at [facility] for therapy and attends the [facility] support group there regularly.
[2025-02-07 11:32] VITALS: BP 117/82
--- NOTE | 2025-02-07 12:31 | W.PN.HOSP.TC ---
Today's Communication/Plan
-
dc home/VN
Assessment / Plan
Assessment / Plan
Assessment:
Syncopal episodes
- ddx: orthostasis, vs arrhythmia, vs neurogenic in setting of PD vs vagal vs other
- slightly orthostatic positive on 02/05; provided IVF and added compression therapy
- repeat orthostatics 02/06; normal readings
- make midodrine prn
- monitor tele
- Echo: prosthetic valve thickening otherwise normal study
- PT/OT - home health setup
staph UTI
- continue Levaquin day 07/17, follow cultures
Vertigo
- recent neuroimaging testing was negative for VBI
- prn Meclizine
- PT/Vestibular therapy, OT - home VN ordered
Suicidal ideation without plan
- Psych evaluated and diagnosed cyclothymia; have ok'd discontinuing 1:1
Chronic CVAs
Hx of TIAs
Hx of Seizures
HX of migraines
- continue ASA/Statin/Zetia
- continue topiramate
s/p BioAVR
Essential HTN
- stop BB with neurogenic orthostasis from Parkinsons
Type 2 DM
- diet controlled
DVT ppx: SCDs
Code: Full
More than 30 minutes spent in discharge including
Final examination of the patient
Summarizing hospital stay
Instructions for continuing care to all relevant caregivers
Preparation of discharge records, prescriptions, and referral forms
Total time spent (in minutes):41
Anticipated Discharge: Today
Subjective/Interval History
-
Date of Service: February 07, 2025
resting comfortably, no complaints at present
Objective Data
-
Labs:
Laboratory Results
02/07/25
07:36
WBC 7.6
Hgb 13.9
Hct 42.3
Plt Count 116 L
Sodium 138
Potassium 4.1
Chloride 109 H
Carbon Dioxide 23
BUN 25 H
Creatinine 1.2
Glucose 128 H
Calcium 9.3
Vital Signs:
Vital Signs
Temp Pulse Resp BP Pulse Ox
98.5 F 105 18 117/82 99
02/07/25 11:32 02/07/25 11:32 02/07/25 11:32 02/07/25 11:32 02/07/25 11:32
I&O
02/06/25 02/07/25 02/08/25
06:59 06:59 06:59
Intake Total 1929 2950 / 2950
Balance 1929 2950 / 2950
Physical Exam
-
General: No Apparent Distress
HEENT: Normocephalic and Atraumatic
Respiratory: Negative Wheezes
Cardiac: Regular Rhythm and S1/S2
GI: Soft
Neuro: AO x 3
Psych: Calm
Data Reviewed
-
Total Time Spent with Patient (in minutes): 41
Labs: Labs Reviewed by me
--- NOTE | 2025-02-07 12:38 | W.DS.TRANS ---
DC Summary - [employer]
-
Discharge Instructions:
Discharge Diagnosis/Procedures UTI, postural orthostatic hypotension with
syncope
Diet Low Cholesterol
Activity As tolerated
Bathing Restrictions None
Other Services VN,PT,OT
Instructions:
Stand-Alone Forms:
Changes to Home Medications: Yes
Discharge Medications:
DC Medications w/original date entered in [facility]
ascorbic acid (vitamin C) 500 mg tablet (Vitamin C) 500 mg PO DAILY Supplement 11/18/15
butterbur root extract 50 mg capsule 50 mg PO DAILY Supplement ##0 11/18/15
cholecalciferol (vitamin D3) 25 mcg (1,000 unit) capsule (Vitamin D3) 1,000 unit PO BID Supplement 11/18/15
cyanocobalamin (vitamin B-12) 1,000 mcg tablet 1,000 mcg PO DAILY Supplement ##0 11/18/15
gilmar root-herbal drugs 450 mg capsule 450 cap PO DAILY Supplement ##0 11/18/15
magnesium oxide 400 mg PO DAILY Supplement ##0 11/18/15
riboflavin (vitamin B2) 100 mg tablet (Vitamin B-2) 200 mg PO BID Supplement 11/18/15
turmeric 400 mg capsule 400 mg PO DAILY Supplement ##0 11/18/15
aspirin 325 mg tablet,delayed release 325 mg PO DAILY Blood Clot Prevention/Tx 11/29/24
ezetimibe 10 mg tablet 10 mg PO DAILY High Cholesterol 01/15/25
rosuvastatin 20 mg tablet 20 mg PO QPM #30 tabs 01/18/25
omega 4-zav-fyo-fish oil 1,000 mg (120 mg-180 mg) capsule (Fish Oil) 1 cap PO DAILY 02/05/25
topiramate 50 mg tablet 100 mg PO BID 02/05/25
levofloxacin 500 mg tablet 500 mg PO DAILY #4 tabs 02/07/25
meclizine 25 mg tablet 25 mg PO Q8HPRN PRN dizziness #30 tabs 02/07/25
midodrine 2.5 mg tablet 2.5 mg PO Q8HPRN PRN symptomatic orthostasis #90 tabs 02/07/25
Home Medication Changes
metoprolol stopped
Pending Results: No
Total time spent discharging patient (in min): 42
--- NOTE | 2025-02-07 13:08 | CM ---
Plan: Discharge to home today with Home Health services from [facility]. Daughter will transport home
== END 2025-02-07 13:57 | disposition home health service (06) ==
LOC: 4 WEST ACU 22:56
PROVIDERS: ADMITTING PHYSICIAN Internal Medicine; ATTENDING PHYSICIAN Internal Medicine; CONSULT PHYSICIAN Psychiatry & Neurology Psychiatry; EMERGENCY PHYSICIAN Emergency Medicine; FAMILY PHYSICIAN Family Medicine
DX: I95.1 Orthostatic hypotension (principal); N39.0 Urinary tract infection, site not specified; F34.0 Cyclothymic disorder; B95.8 Unspecified staphylococcus as the cause of diseases classified elsewhere; E11.22 Type 2 diabetes mellitus with diabetic chronic kidney disease; E11.59 Type 2 diabetes mellitus with other circulatory complications; I12.9 Hypertensive chronic kidney disease with stage 1 through stage 4 chronic kidney disease, or unspecified chronic kidney disease; G20.A1 Parkinson's disease without dyskinesia, without mention of fluctuations; E78.00 Pure hypercholesterolemia, unspecified; R41.3 Other amnesia; N18.9 Chronic kidney disease, unspecified; F31.9 Bipolar disorder, unspecified; I44.0 Atrioventricular block, first degree; I77.810 Thoracic aortic ectasia; I25.10 Atherosclerotic heart disease of native coronary artery without angina pectoris; G40.909 Epilepsy, unspecified, not intractable, without status epilepticus; R45.851 Suicidal ideations; S00.83XA Contusion of other part of head, initial encounter; S60.221A Contusion of right hand, initial encounter; W07.XXXA Fall from chair, initial encounter; Y93.89 Activity, other specified; Y92.009 Unspecified place in unspecified non-institutional (private) residence as the place of occurrence of the external cause; Z88.1 Allergy status to other antibiotic agents; Z88.0 Allergy status to penicillin; Z88.2 Allergy status to sulfonamides; Z88.8 Allergy status to other drugs, medicaments and biological substances; Z95.3 Presence of xenogenic heart valve; Z79.82 Long term (current) use of aspirin; Z86.73 Personal history of transient ischemic attack (TIA), and cerebral infarction without residual deficits; Z90.49 Acquired absence of other specified parts of digestive tract; Z60.2 Problems related to living alone; Z79.899 Other long term (current) drug therapy
CPT/HCPCS: 70450; 80048; 80053; 81003; 81015; 82550; 83605; 83735; 84443; 84484; 85025; 85027; 87086; 87147; 87186; 93005; 93306; 95816; 96360; 97162; 97166; 99285; G0378

== ENCOUNTER 2025-02-08 11:19 | Inpatient (IN) | payer MEDICARE, SELFPAY ==
[2025-02-07 17:26] VITALS: BP 158/88
[2025-02-07 17:29] VITALS: BMI 26.3
--- NOTE | 2025-02-07 17:32 | ED.GENMED ---
History of Present Illness
<Ras Donahue MD - Last Filed: 02/08/25 00:40>
General
Chief Complaint: Seizure
Source: patient and ambulance crew
Exam Limitations: none
Time Seen by Provider: 02/07/25 17:31
Nursing documentation reviewed up to this point in time: agreed with
History of Present Illness
History of Present Illness:
Patient with history of CVA, seizure disorder on Topamax, discharged from the hospital this afternoon after being treated for UTI, presents to ED from home with possible seizure episode, noted by his friends. Per patient, patient left the hospital
earlier this afternoon without any complaints. He had gone outside his house and was sitting with his friends, when he started to feel hot and not feel well. He was told by his friends that he looked like he was having a seizure. However, he
patient does recall the conversation and does not think he lost consciousness. Denies headache. Denies tongue biting. Denies urinary or bowel incontinence. Denies coughing. Denies dizziness. Upon arrival, patient found to be febrile, which he
was not aware of.
Past History
<KARYNA Remy - Last Filed: >
Past History
ED Past Medical History: HTN, Hypercholesterolemia, IDDM, Valvular disease and Other (Migraines)
ED Past Surgical History: Cardiac (Aortic valve replacement 2016, [facility])
Social History
Tobacco: Non-smoker
Alcohol: None
Drug: None
Personal:
Living: with family
Employment: Retired
Review of Systems
<Ras Donahue MD - Last Filed: 02/08/25 00:40>
Review of Systems
Allergies reviewed?: Yes
All Other Systems: ROS reviewed and negative except as documented in HPI and ROS
Constitutional: Reports no symptoms
EENT: Reports no symptoms
Respiratory: Reports no symptoms
Cardiac: Reports no symptoms
ABD/GI: Reports no symptoms
Musculoskeletal: Reports no symptoms
Skin: Reports no symptoms
Neurological: Reports no symptoms
Phy Exam
<Ras Donahue MD - Last Filed: 02/08/25 00:40>
Physical Exam
Physical Exam:
Physical Exam
General: no apparent distress, not acutely ill. febrile. tachycardic
Head: nc/at. eomi
Neck: supple. no meningeal signs.
Heart: s1/s2 regular rate and rhythm
Lungs: no acute respiratory distress. clear bilaterally
Abdomen: normal bowel sounds. not tender.
Neuro: alert and oriented x 3. no focal neurological deficits. normal speech
Skin: no rash
Psychiatric: well kept. interactive and cooperative
Extremities: no edema. no calf tenderness.
Course
<Ras oDnahue MD - Last Filed: 02/08/25 00:40>
Orders/Labs/Results
Orders:
Orders
02/07/25 Lunch
Cholesterol Lowering
Cholesterol Lowering: Sodium, 2 Gram
1800 bashir/15 CHO Diabetic
02/07/25 17:26
EKG [Electrocardiogram (*1)] Urgent
Reason for Study: Tachycardia
EKG- Treatment ONCE
02/07/25 17:32
CMP [Comprehensive Metabolic Panel] Urgent
Complete Blood Count/With Diff Urgent
Lactate Level [Lactic Acid] Urgent
Blood Culture Urgent
TIFFANY Source: Blood/Venous
Specimen Description:
02/07/25 17:48
0.9% Sodium Chloride 500 ml [Nss] 500 ml IV BOLUS
Acetaminophen [Tylenol] 650 mg PO NOW STA
02/07/25 18:05
COVID-19 Antigen Urgent
Source: Nasal Swab
Influenza A+B Rapid Molecular Urgent
TIFFANY Source: Nasal Swab
Specimen Description:
02/07/25 18:07
Ibuprofen [Motrin] 400 mg PO NOW STA
02/07/25 18:08
Ibuprofen [Motrin] 400 mg .ROUTE .STK-MED ONE
02/07/25 18:09
CR Chest - 2 Views Urgent
Comment:
Reason For Exam: fever/cough
02/07/25 18:29
Admit/Transfer Patient As Directed
Co-Sign Provider:
Level of Care: Observation services
Assign to:: Telemetry
Physician / Group: Norma Ansari madelinists
Diagnosis: febrile illness, seizure
Reason for Telemetry: Other
Other Reason for Telemetry: possible seizure
Date to Stop Telemetry: 02/09/25
Time to Stop Telemetry: 11:00
PRN Pain Medication Management As Directed
May give lesser potent ordered pain med per pt: Yes
preference::
Protocol:: Medication orders for pain may be administered in a
manner that supports deferring to patient preference
when the pt is:
- Requesting an ordered lesser potent pain medication.
Least to most potent pain medications are defined
as: acetaminophen < NSAID < tramadol < opioids
(morphine, oxycodone, hydromorphone).
- Requesting a lesser dose of the same medication IF
ORDERED.
- Requesting a less intrusive route of administration
if both routes are prescribed by the provider (PO <
IV).
02/07/25 18:32
Code Status As Directed
Resuscitation Status: Full Code
02/07/25 19:00
Urinalysis Reflex To Culture Urgent
Date Specimen was Collected: 02/07/25
Time Specimen was Collected: 18:45
Urine Microscopic Reflex Cult Urgent
Urine Culture Urgent
TIFFANY Source: U
Specimen Description:
Date Specimen was Collected: 02/07/25
Time Specimen was Collected: 18:45
02/07/25 19:15
0.9% Sodium Chloride 1000 ml [Nss] 1,000 ml IV 80 mls/hr
Bisacodyl [Dulcolax] 10 mg RECTAL [id number] PRN
Dextrose 50%-Water [Dextrose 50% Syringe] 12.5 grams IV [id number] PRN
Docusate W/Senna [Senokot-S] 1 tablet PO BIDPRN PRN
Glucagon [GlucaGen] 1 mg IM PRN PRN
Meclizine [Antivert] 25 mg PO Q8HPRN PRN dizziness
Midodrine [ProAmatine] 2.5 mg PO Q8HPRN PRN symptomatic orthostasis
Ondansetron Injectable [Zofran] 4 mg IV Q6HPRN PRN
Polyethylene Glycol Powder [Miralax] 17 grams PO DAILYPRN PRN
Sodium Chloride [Wardell, Saline Mist] 2 sprays NASAL QIDPRN PRN
02/07/25 19:15
NEUROLOGY CONSULT Routine
Consulting Provider: Angelica Santillan
Was physician already notified: Yes
Activity As Directed
Activity Level: As Tolerated
Bedside Glucose Monitoring As Directed
Frequency: AC&HS
Additional Instructions:: Change to q6h if pt on TPN, tube feeding or not eating
Precautions As Directed
Type of Precautions: Droplet
Contact
Vital Signs As Directed
Frequency: Per unit guidelines
Ot Eval And Treat Routine
Pt Eval And Treat Routine
Activity Level: As Tolerated
DX Deep Vein Thrombosis Video Routine
02/07/25 20:00
Cholecalciferol (Vitamin D3) [VITAMIN D3 (cholecalciferol)] 25 mcg PO BID
02/07/25 22:00
Topiramate [Topamax] 100 mg PO BID
02/08/25 00:00
Ibuprofen [Motrin] 400 mg PO Q6HPRN PRN
02/08/25 06:00
Basic Metabolic Panel IN AM
Complete Blood Count/No Diff IN AM
02/08/25 07:30
Insulin Aspart Corrective Low [Novolog Flexpen-Low Resistance] See Protocol SC AC
02/08/25 08:00
Ascorbic Acid [Vitamin C] 500 mg PO DAILY
Aspirin 325 mg PO DAILY
Cyanocobalamin [Vitamin B-12] 1,000 mcg PO DAILY
Ezetimibe [Zetia] 10 mg PO DAILY
LevoFLOXacin [Levaquin] 500 mg PO DAILY
Magnesium Oxide 400 mg PO DAILY
butterbur root extract 50 mg PO DAILY
gilmar root-herbal drugs 450 cap PO DAILY
omega 9-jty-nwq-fish oil [Fish Oil] 1 cap PO DAILY
turmeric 400 mg PO DAILY
02/08/25 18:00
Enoxaparin Sodium [Lovenox] 40 mg SC QPM
Rosuvastatin Calcium [Crestor] 20 mg PO QPM
02/09/25 11:00
DC Protocol for Telemetry ONCE
Abnormal Lab Results
02/07/25 02/07/25 02/07/25
17:32 17:41 18:05
RBC 4.59 L 10^6/uL
(4.70-6.10)
Plt Count 118 L 10^3/uL
(130-400)
Absolute Lymphs (auto) 0.4 L 10^3/uL
(1.2-3.4)
Absolute Monos (auto) 0.7 H 10^3/uL
(0.1-0.6)
Neutrophils % 82.1 H %
(42.2-75.2)
Lymphocytes % 6.1 L %
(20.5-51.1)
Monocytes % 10.6 H %
(1.7-9.3)
Chloride 108 H mmol/L
(98-107)
Carbon Dioxide 19 L mmol/L
(22-30)
BUN 24 H mg/dl
(9-20)
Glucose 171 H mg/dl
(70-99)
SARS-CoV-2 Antigen Positive A
(Negative)
POC Glucose 191 H mg/dl
(70-99)
02/07/25 17:32
02/07/25 17:32
Vital Signs
Initial and Last Documented VS:
Initial Vital Signs
Pulse Resp
115 22
02/07/25 17:24 02/07/25 17:24
Last Documented Vital Signs
Temp Pulse Resp BP Pulse Ox
97.9 F 91 18 111/73 98
02/07/25 23:27 02/07/25 23:27 02/07/25 23:27 02/07/25 23:27 02/07/25 23:27
<KARYNA Remy - Last Filed: >
Orders/Labs/Results
Orders:
Orders
02/07/25 Lunch
Cholesterol Lowering
Cholesterol Lowering: Sodium, 2 Gram
1800 bashir/15 CHO Diabetic
02/07/25 17:26
EKG [Electrocardiogram (*1)] Urgent
Reason for Study: Tachycardia
EKG- Treatment ONCE
02/07/25 17:32
CMP [Comprehensive Metabolic Panel] Urgent
Complete Blood Count/With Diff Urgent
Lactate Level [Lactic Acid] Urgent
Blood Culture Urgent
TIFFANY Source: Blood/Venous
Specimen Description:
02/07/25 17:48
0.9% Sodium Chloride 500 ml [Nss] 500 ml IV BOLUS
Acetaminophen [Tylenol] 650 mg PO NOW STA
02/07/25 18:05
COVID-19 Antigen Urgent
Source: Nasal Swab
Influenza A+B Rapid Molecular Urgent
TIFFANY Source: Nasal Swab
Specimen Description:
02/07/25 18:07
Ibuprofen [Motrin] 400 mg PO NOW STA
02/07/25 18:08
Ibuprofen [Motrin] 400 mg .ROUTE .STK-MED ONE
02/07/25 18:09
CR Chest - 2 Views Urgent
Comment:
Reason For Exam: fever/cough
02/07/25 18:29
Admit/Transfer Patient As Directed
Co-Sign Provider:
Level of Care: Observation services
Assign to:: Telemetry
Physician / Group: Norma carlson
Diagnosis: febrile illness, seizure
Reason for Telemetry: Other
Other Reason for Telemetry: possible seizure
Date to Stop Telemetry: 02/09/25
Time to Stop Telemetry: 11:00
PRN Pain Medication Management As Directed
May give lesser potent ordered pain med per pt: Yes
preference::
Protocol:: Medication orders for pain may be administered in a
manner that supports deferring to patient preference
when the pt is:
- Requesting an ordered lesser potent pain medication.
Least to most potent pain medications are defined
as: acetaminophen < NSAID < tramadol < opioids
(morphine, oxycodone, hydromorphone).
- Requesting a lesser dose of the same medication IF
ORDERED.
- Requesting a less intrusive route of administration
if both routes are prescribed by the provider (PO <
IV).
02/07/25 18:32
Code Status As Directed
Resuscitation Status: Full Code
02/07/25 19:00
Urinalysis Reflex To Culture Urgent
Date Specimen was Collected: 02/07/25
Time Specimen was Collected: 18:45
Urine Microscopic Reflex Cult Urgent
Urine Culture Urgent
TIFFANY Source: U
Specimen Description:
Date Specimen was Collected: 02/07/25
Time Specimen was Collected: 18:45
02/07/25 19:15
0.9% Sodium Chloride 1000 ml [Nss] 1,000 ml IV 80 mls/hr
Bisacodyl [Dulcolax] 10 mg RECTAL [id number] PRN
Dextrose 50%-Water [Dextrose 50% Syringe] 12.5 grams IV [id number] PRN
Docusate W/Senna [Senokot-S] 1 tablet PO BIDPRN PRN
Glucagon [GlucaGen] 1 mg IM PRN PRN
Meclizine [Antivert] 25 mg PO Q8HPRN PRN dizziness
Midodrine [ProAmatine] 2.5 mg PO Q8HPRN PRN symptomatic orthostasis
Ondansetron Injectable [Zofran] 4 mg IV Q6HPRN PRN
Polyethylene Glycol Powder [Miralax] 17 grams PO DAILYPRN PRN
Sodium Chloride [Wardell, Saline Mist] 2 sprays NASAL QIDPRN PRN
02/07/25 19:15
NEUROLOGY CONSULT Routine
Consulting Provider: Angelica Santillan
Was physician already notified: Yes
Activity As Directed
Activity Level: As Tolerated
Bedside Glucose Monitoring As Directed
Frequency: AC&HS
Additional Instructions:: Change to q6h if pt on TPN, tube feeding or not eating
Precautions As Directed
Type of Precautions: Droplet
Contact
Vital Signs As Directed
Frequency: Per unit guidelines
Ot Eval And Treat Routine
Pt Eval And Treat Routine
Activity Level: As Tolerated
DX Deep Vein Thrombosis Video Routine
02/07/25 20:00
Cholecalciferol (Vitamin D3) [VITAMIN D3 (cholecalciferol)] 25 mcg PO BID
02/07/25 22:00
Topiramate [Topamax] 100 mg PO BID
02/08/25 00:00
Ibuprofen [Motrin] 400 mg PO Q6HPRN PRN
02/08/25 06:00
Basic Metabolic Panel IN AM
Complete Blood Count/No Diff IN AM
02/08/25 07:30
Insulin Aspart Corrective Low [Novolog Flexpen-Low Resistance] See Protocol SC AC
02/08/25 08:00
Ascorbic Acid [Vitamin C] 500 mg PO DAILY
Aspirin 325 mg PO DAILY
Cyanocobalamin [Vitamin B-12] 1,000 mcg PO DAILY
Ezetimibe [Zetia] 10 mg PO DAILY
LevoFLOXacin [Levaquin] 500 mg PO DAILY
Magnesium Oxide 400 mg PO DAILY
butterbur root extract 50 mg PO DAILY
gilmar root-herbal drugs 450 cap PO DAILY
omega 0-akn-qes-fish oil [Fish Oil] 1 cap PO DAILY
turmeric 400 mg PO DAILY
02/08/25 18:00
Enoxaparin Sodium [Lovenox] 40 mg SC QPM
Rosuvastatin Calcium [Crestor] 20 mg PO QPM
02/09/25 11:00
DC Protocol for Telemetry ONCE
Abnormal Lab Results
02/07/25 02/07/25 02/07/25
17:32 17:41 18:05
RBC 4.59 L 10^6/uL
(4.70-6.10)
Plt Count 118 L 10^3/uL
(130-400)
Absolute Lymphs (auto) 0.4 L 10^3/uL
(1.2-3.4)
Absolute Monos (auto) 0.7 H 10^3/uL
(0.1-0.6)
Neutrophils % 82.1 H %
(42.2-75.2)
Lymphocytes % 6.1 L %
(20.5-51.1)
Monocytes % 10.6 H %
(1.7-9.3)
Chloride 108 H mmol/L
(98-107)
Carbon Dioxide 19 L mmol/L
(22-30)
BUN 24 H mg/dl
(9-20)
Glucose 171 H mg/dl
(70-99)
SARS-CoV-2 Antigen Positive A
(Negative)
POC Glucose 191 H mg/dl
(70-99)
02/07/25 17:32
02/07/25 17:32
Vital Signs
Initial and Last Documented VS:
Initial Vital Signs
Pulse Resp
115 22
02/07/25 17:24 02/07/25 17:24
Last Documented Vital Signs
Temp Pulse Resp BP Pulse Ox
97.9 F 91 18 111/73 98
02/07/25 23:27 02/07/25 23:27 02/07/25 23:27 02/07/25 23:27 02/07/25 23:27
<Ras Donahue MD - Last Filed: 02/08/25 00:40>
MDM/Problems Addressed
MDM/Problems Addressed:
Patient presents to ED in febrile state with possible seizure noted at home by his friends. However, as patient has total recollection of events preceding arrival to ED, not quite sure if patient in fact has seizure episode or may have experienced
altered state secondary to fever. As patient is currently being treated for UTI, will continue IV antibiotics. Patient will be tested for COVID and flu as well. Blood culture pending. Patient will be admitted to hospitalist service overnight.
<Ras Donahue MD - Last Filed: 02/08/25 00:40>
*Pulse Oximetry
Patient hypoxic: no
*Critical Care Note
Total Time (30-74mins, 75-104mins- exclusive of procedures): Not Applicable
<KARYNA Remy - Last Filed: >
*Pulse Oximetry
SaO2: 99
ED Attending Note
<KARYNA Remy - Last Filed: >
-
Portions of this chart may have been created with voice recognition software.� Occasional wrong word or��sound alike� substitutions may have occurred due to the inherent limitations of voice recognition software.
Discharge Plan
Departure
Patient Disposition: Admit
Date of Disposition: 02/07/25
Time of Disposition: 18:08
Admit to: Telemetry
Presentation/result/management discussed w/ accepting MD/DO: Hospitalist
Discharge Problem:
Fever, Altered mental status
Interventions
Interventions:
*Risk Screen - Suicide Last Done: 02/07/25 17:26
*General Assessment Last Done: 02/07/25 17:26
*Neglect/Abuse Screening Last Done: 02/07/25 17:26
*ED- Fall Risk Assessment Last Done: 02/07/25 17:26
*ED COVID-19 Vaccine History Last Done: 02/07/25 20:43
*Nursing Disposition Last Done: 02/07/25 19:21
ED- Cardiac Assessment Last Done: 02/07/25 17:45
ED- Neurological Assessment Last Done: 02/07/25 17:45
ED- Pulmonary Assessment Last Done: 02/07/25 17:45
Discharge Date and Time
Discharge Date/Time: 02/07/25 19:21
[2025-02-07 17:42] LABS: Hematocrit 39.4 % (39.0-52.0); Hemoglobin 13.4 g/dL (13.0-18.0); Mean Corp Hgb Conc. 34.0 g/dL (33.0-37.0); Mean Corpuscular Volume 85.8 fL (80.0-94.0); Nucleated Red Blood Cells % 0 % (-); Platelet Count 118 10^3/uL (130-400); Red Cell Dist. Width 12.4 % (11.5-14.5)
[2025-02-07 17:43] LABS: Glucose - Point of Care 191 mg/dl (70-99)
[2025-02-07 17:55] LABS: ALT (SGPT) 37 U/L (0-50); AST (SGOT) 29 U/L (17-59); Albumin 4.5 g/dl (3.5-5.0); Alkaline Phosphatase 59 U/L (38-126); Blood Urea Nitrogen 24 mg/dl (9-20); Calcium 9.3 mg/dl (8.4-10.2); Carbon Dioxide 19 mmol/L (22-30); Chloride 108 mmol/L (98-107); Estimated Creatinine Clearance 60 ml/min; Glucose 171 mg/dl (70-99); Potassium 4.0 mmol/L (3.5-5.1); Sodium 136 mmol/L (135-145); Total Protein 7.4 g/dl (6.3-8.2); eGFR 59.10
[2025-02-07] MEDS: NSS 500 IV (17:58)
[2025-02-07 18:00] VITALS: BP 152/93
[2025-02-07] MEDS: MOTRIN 400 MG PO (18:09)
--- NOTE | 2025-02-07 18:12 | HPS.HSE ---
Family Physician
-
Family Physician: Lori Rachel
Chief Complaint
-
seizure, fever
History of Present Illness
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 He was admitted for orthostasis, syncope and UTI and discharged
on Levaquin. He reports being dropped home by his daughter and was sitting and talking with friends when he felt warm and friends noted that patient was having what they felt was a seizure. Patient reports remembering the whole episode of feeling
warm and does not feel like he ever passed out. No headache. No biting of tongue or incontinence.
Reports cough with post-nasal drip that began this morning; patient not endorse this while in hospital earlier today.
No new complaints.
Medical History
Past Medical History
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
Past Surgical History: Reports Other (Left CEA Porcine AVR Inguinal Herniorrhaphy Appendectomy)
Social History
Tobacco: Non-smoker
Alcohol: None
Drug: None
Living: Alone
Employment: Disabled
Family History
Family History: Not pertinent
Allergies / Home Medications
Allergies reflects when Allergies were last updated in [facility].
Home Medications with original date entered in [facility]
Allergy/Medication List:
Allergies
Allergy/AdvReac Type Severity Reaction Status Date / Time
cephalexin monohydrate (From Allergy Hives Verified 01/15/25 16:34
Keflex)
clindamycin Allergy Rash Verified 01/15/25 16:34
cyclobenzaprine HCl (From Allergy palpitation Verified 01/15/25 16:34
Flexeril) s
erythromycin lactobionate Allergy Hives Verified 01/15/25 16:34
(From Erythrocin)
hydroxyzine HCl (From Atarax) Allergy Hives Verified 01/15/25 16:34
Penicillins Allergy Rash Verified 01/15/25 16:34
Sulfa (Sulfonamide Allergy loose stool Verified 01/15/25 16:34
Antibiotics)
tetracycline Allergy Unknown Verified 01/15/25 16:34
vancomycin Allergy Unknown Verified 01/15/25 16:34
Home Medications
ascorbic acid (vitamin C) 500 mg tablet (Vitamin C) 500 mg PO DAILY Supplement 11/18/15
butterbur root extract 50 mg capsule 50 mg PO DAILY Supplement ##0 11/18/15
cholecalciferol (vitamin D3) 25 mcg (1,000 unit) capsule (Vitamin D3) 1,000 unit PO BID Supplement 11/18/15
cyanocobalamin (vitamin B-12) 1,000 mcg tablet 1,000 mcg PO DAILY Supplement ##0 11/18/15
gilmar root-herbal drugs 450 mg capsule 450 cap PO DAILY Supplement ##0 11/18/15
magnesium oxide 400 mg PO DAILY Supplement ##0 11/18/15
riboflavin (vitamin B2) 100 mg tablet (Vitamin B-2) 200 mg PO BID Supplement 11/18/15
turmeric 400 mg capsule 400 mg PO DAILY Supplement ##0 11/18/15
aspirin 325 mg tablet,delayed release 325 mg PO DAILY Blood Clot Prevention/Tx 11/29/24
ezetimibe 10 mg tablet 10 mg PO DAILY High Cholesterol 01/15/25
rosuvastatin 20 mg tablet 20 mg PO QPM #30 tabs 01/18/25
omega 2-dta-qdz-fish oil 1,000 mg (120 mg-180 mg) capsule (Fish Oil) 1 cap PO DAILY 02/05/25
topiramate 50 mg tablet 100 mg PO BID 02/05/25
levofloxacin 500 mg tablet 500 mg PO DAILY #4 tabs 02/07/25
meclizine 25 mg tablet 25 mg PO Q8HPRN PRN dizziness #30 tabs 02/07/25
midodrine 2.5 mg tablet 2.5 mg PO Q8HPRN PRN symptomatic orthostasis #90 tabs 02/07/25
Review of Systems
-
History Source: Patient
A 12 point ROS was completed and negative except as noted: Yes
Respiratory: Reports See HPI
Physical Exam
Vital Signs
Vital Signs
Temp Pulse Resp BP Pulse Ox
101 F H 113 22 158/88 99
02/07/25 17:29 02/07/25 17:27 02/07/25 17:27 02/07/25 17:26 02/07/25 17:57
Physical Exam
General: No Apparent Distress and Fever
HEENT: NormoCephalic and Anicteric
Respiratory: Clear; No Wheezes or Rales
Cardiac: S1/S2 and Regular Rhythm
GI: Soft and Non Tender
Neuro: AO x 3
Psych: Calm
Laboratory Results
-
02/07/25 17:32
02/07/25 17:32
Laboratory Results
Lactic Acid 0.9 mmol/L (0.7-2.0) 02/07/25 17:32
Total Bilirubin 0.6 mg/dl (0.2-1.3) 02/07/25 17:32
AST 29 U/L (17-59) 02/07/25 17:32
ALT 37 U/L (0-50) 02/07/25 17:32
Alkaline Phosphatase 59 U/L (38-126) 02/07/25 17:32
Data Reviewed
-
Lab Data: Labs Reviewed by me
Impression/Plan
-
Assessment:
suspected febrile seizure
Hx of seizures
- continue Topamax
- consult Neurology in case of med adjustment
Febrile illness, new
- COVID +, probably hospital acquired in setting of recent hospitalization
- isolation
- supportive care; fever control most imperative
- saline spray
- CXR pending
staph UTI
- recently hospitalized for Staph UTI and was on Levaquin; tolerated well without fever
- follow up cultures/repeat UA
- continue oral Levaquin, Saturday is day 4
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
- continue compression therapy
- continue IVF
- midodrine prn
- monitor tele with seizure
- Echo last admit: prosthetic valve thickening otherwise normal study
- PT/OT - home health as per prior hospitalization
Vertigo
- recent neuroimaging testing 01/15 was negative for VBI
- prn Meclizine
- home health as per prior hospitalization
Suicidal ideation without plan
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
- no SI at present
Chronic CVAs
Hx of TIAs
HX of migraines
- continue ASA/Statin/Zetia
s/p BioAVR
Essential HTN
- metoprolol was stopped last admission with history of neurogenic orthostasis from Parkinsons
Type 2 DM
- diet controlled
- SSI
DVT ppx: Lovenox
Code: Full
[2025-02-07 18:30] LABS: COVID-19 Antigen Positive (Negative)
[2025-02-07 19:08] LABS: Urine Character Clear (Clear)
[2025-02-07 19:19] VITALS: BP 127/81
[2025-02-07 19:25] LABS: Urine Red Blood Cell 0-2 /HPF (0-2); Urine Squamous Cell M /LPF (Few); Urine Urothelial Cell 0-2 /LPF (FEW)
[2025-02-07 19:26] LABS: Urine White Cell 16-20 /HPF (0-5)
[2025-02-07 20:19] VITALS: BMI 25.3
[2025-02-07] MEDS: NSS 1000 IV (21:12)
[2025-02-07] MEDS: VITAMIN D3 (cholecalciferol) 25 MCG PO (21:12)
[2025-02-07 22:27] LABS: Glucose - Point of Care 124 mg/dl (70-99)
[2025-02-07] MEDS: TOPAMAX 100 MG PO (22:38)
[2025-02-07 23:27] VITALS: BP 111/73
[2025-02-08] VITALS (9 sets, daily range): BP systolic 107–138; BP diastolic 66–86; PULSE 97–103; O2SAT 100; BMI 26.3
[2025-02-08 06:38] LABS: Hematocrit 38.1 % (39.0-52.0); Hemoglobin 12.5 g/dL (13.0-18.0); Mean Corp Hgb Conc. 32.8 g/dL (33.0-37.0); Mean Corpuscular Volume 87.4 fL (80.0-94.0); Platelet Count 105 10^3/uL (130-400); Red Cell Dist. Width 12.5 % (11.5-14.5)
[2025-02-08 07:18] LABS: Blood Urea Nitrogen 19 mg/dl (9-20); Calcium 8.9 mg/dl (8.4-10.2); Carbon Dioxide 21 mmol/L (22-30); Chloride 110 mmol/L (98-107); Estimated Creatinine Clearance 71 ml/min; Glucose 118 mg/dl (70-99); Potassium 3.9 mmol/L (3.5-5.1); Sodium 138 mmol/L (135-145); eGFR > 60.00
[2025-02-08 08:02] LABS: Glucose - Point of Care 110 mg/dl (70-99)
[2025-02-08] MEDS: NOVOLOG FLEXPEN-LOW RESISTANCE SC ×2 (08:16→18:15)
[2025-02-08] MEDS: VITAMIN C 500 MG PO (09:03)
[2025-02-08] MEDS: VITAMIN D3 (cholecalciferol) 25 MCG PO ×2 (09:04→20:11)
[2025-02-08] MEDS: VITAMIN B-12 1000 MCG PO (09:04)
[2025-02-08] MEDS: LEVAQUIN 500 MG PO (09:04)
[2025-02-08] MEDS: MAGNESIUM OXIDE 400 MG PO (09:04)
[2025-02-08] MEDS: ASPIRIN 325 MG PO (09:04)
[2025-02-08] MEDS: ZETIA 10 MG PO (09:04)
[2025-02-08] MEDS: TOPAMAX 100 MG PO ×2 (09:04→20:11)
--- NOTE | 2025-02-08 09:04 | VNURNOTE ---
Chart reviewed. Patient is current with [facility]. Will continue to follow hospital course and DC plans.
--- NOTE | 2025-02-08 09:22 | CON.ID ---
Addendum entered and electronically signed by Arsen Tatum DO 02/08/25 11:28:
I personally performed a history and physical exam of the patient and discussed management with the resident. I reviewed the resident's note and agree with the documented findings and plan of care HPI/CC except as noted below.
#Febrile illness, possibly due to acute respiratory viral illness
- COVID positive; continue isolation protocols
- CXR negative for any cardiopulmonary process
- No leukocytosis, no further fevers
- Pt without respiratory symptoms; no indication for Paxlovid/Remdesivir at this time
- Continue supportive care and control fever
- Follow blood cultures.
#UTI (Positive for Staph. capitis)
- Currently on Day #4 of Levaquin (7 day course of treatment)
- Newest UA showed improvement in disease process
- awaiting newest urine and blood cultures
- continue Levaquin; decrease to 500mg/day
Original Note:
Consultation
-
Date/Time Consultation Requested: 02/08/2025 06:51am
Date/Time Consultation Performed: 02/08/2025 09:00am
Requesting Provider: Dr. Jeniffer Mccray
Performing Provider: Dr. Arsen Tatum, Dr. Consuelo Jonse
Reason for Consultation: Recent UTI, COVID Positive
Chief Complaint / Past History
Chief Complaint
Febrile Seizure
History of Present Illness
69-year-old male with past medical history of CAD, CVA, carotid stenosis, aortic stenosis status post AVR, hypertension, hyperlipidemia, Parkinson's, and recent admission to the hospital due to orthostasis, syncope and UTI came back to the hospital
following seizure witnessed with his friends. He had recently been discharged from the hospital after starting course of Levaquin. 25 hours later, he was with his friends and started to feel warm and ended up having a witnessed seizure where his
friends reported that he was shaking. Patient says that he did not pass out however he felt very still and felt the whole world was still. He reported a cough as well as postnasal drip that began earlier that morning but did not say that as he was
being discharged from the hospital. In the ED, he is found to have a temperature of 101 F, was started on ibuprofen. Chest x-ray was negative for any acute cardiopulmonary process, and patient was found to be positive for COVID. Infectious
disease services were consulted due to recent staph UTI, and COVID positivity.
Past History
Additional Past Medical History:
ASCVD: CAD, CVA, Carotid stenosis, s/p AVR, PD
HTN
HLD
Parkinson's Disease
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
Additional Past Surgical History:
Appendectomy
Left CEA Porcine AVR
Inguinal Herniorrhaphy
Allergy History:
cephalexin monohydrate (From Keflex) Allergy (Verified 01/15/25 16:34)
Hives
clindamycin Allergy (Verified 01/15/25 16:34)
Rash
cyclobenzaprine HCl (From Flexeril) Allergy (Verified 01/15/25 16:34)
palpitations
erythromycin lactobionate (From Erythrocin) Allergy (Verified 01/15/25 16:34)
Hives
hydroxyzine HCl (From Atarax) Allergy (Verified 01/15/25 16:34)
Hives
Penicillins Allergy (Verified 01/15/25 16:34)
Rash
Sulfa (Sulfonamide Antibiotics) Allergy (Verified 01/15/25 16:34)
loose stool
tetracycline Allergy (Verified 01/15/25 16:34)
Unknown
vancomycin Allergy (Verified 01/15/25 16:34)
Renal Failure
Medications Reviewed: Yes
Current Antibiotics:
Levofloxacin 500mg (Day 4/7)
Social History
Tobacco: Non-Smoker
Alcohol: None
Drug: None
Living: Alone
Employment: Disabled
Family History
Family History: Not Pertinent
Review of Systems
Review of Systems
General: Chills; Negative Fever
HEENT: Other (Post nasal drip); Negative Lymphadenopathy or Stiff Neck
Cardiovascular: Negative Chest Pain
Respiratory: Cough
Genital / Urological: Negative Dysuria
Neurological: Seizures; Negative Headache or Dizziness
All systems: All other systems were reviewed and were negative
Vital Signs
Temp Pulse Resp BP Pulse Ox
98.4 F 91 20 138/83 100
02/08/25 07:44 02/08/25 07:44 02/08/25 07:44 02/08/25 07:44 02/08/25 07:44
Physical Exam
Physical Exam
Constitutional: No Acute Distress, Well Developed and Comfortable
Head: Normocephalic
Oral: Poor Dentition
Cardiovascular: Regular Rate and S1/S2
Pulmonary: Clear and Non Labored; Negative Wheezes or Rales
Gastrointestinal: Soft, Non Tender, Non Distended and Normal Bowel Sounds
Extremities: Negative Edema, Clubbing or Cyanosis
Skin: Warm and Dry
Neurological: Awake, Alert, Oriented and AO x 3
Psychological: Calm
.
Lab / Diagnostic Study Results
02/08/25 05:42
02/08/25 05:42
Abs Immat Gran (auto) 0.0 10^3/uL (0-0.05) 02/07/25 17:32
Absolute Neuts (auto) 5.5 10^3/uL (1.4-6.5) 02/07/25 17:32
Absolute Lymphs (auto) 0.4 10^3/uL (1.2-3.4) L 02/07/25 17:32
Absolute Monos (auto) 0.7 10^3/uL (0.1-0.6) H 02/07/25 17:32
Absolute Basos (auto) 0.0 10^3/uL (0-0.2) 02/07/25 17:32
Immature Gran % 0.3 % (0-0.5) 02/07/25 17:32
Neutrophils % 82.1 % (42.2-75.2) H 02/07/25 17:32
Lymphocytes % 6.1 % (20.5-51.1) L 02/07/25 17:32
Monocytes % 10.6 % (1.7-9.3) H 02/07/25 17:32
Eosinophils % 0.6 % (0-6) 02/07/25 17:32
Basophils % 0.3 % (0-2) 02/07/25 17:32
Lactic Acid 0.9 mmol/L (0.7-2.0) 02/07/25 17:32
Ur Squamous Epith Cells M /LPF (Few) 02/07/25 19:00
Microbiology Results
Micro:
02/07/25 19:00 Urine Culture - Pending
Urine
02/07/25 18:05 Influenza Types A & B (AYALA) - Final
Nasal Swab Negative for Influenza A & B, NAAT
Negative results must be combined with clinical observations
and patient history.
Nucleic Acid Amplification test (NAAT)performed on the
[employer] platform.
02/07/25 17:32 Blood Culture - Pending
Blood/Venous
Imaging:
02/07/2025 CXR (2 View)- No focal consolidation, pleural effusion, or pneumothorax. Sternotomy wires and an aortic valve prosthesis. The cardiomediastinal silhouette is normal. Chronic degenerative changes of the spine.
Assessment / Plan
69-year-old male with past medical history of CAD, CVA, carotid stenosis, aortic stenosis status post AVR, hypertension, hyperlipidemia, Parkinson's, and recent admission to the hospital due to orthostasis, syncope and UTI came back to the hospital
following seizure witnessed with his friends.
Plan:
#Febrile illness, possibly due to acute respiratory viral illness
-COVID positive, Isolation protocols
-CXR negative for any cardiopulmonary process
-No leukocytosis, no further fevers
-No indication for Paxlovid/Remdesivir at this time
-Continue supportive care and control fever
-Awaiting blood cultures
#UTI (Positive for Staph Capitis)
-On Day 4 of Levaquin (7 day course of treatment)
-Newest UA showed improvement in disease process
-awaiting newest urine and blood cultures
-continue Levaquin
--- NOTE | 2025-02-08 09:52 | CM ---
Addendum entered by Yeyo Gandhi 02/08/25 11:59:
Level of care changed to inpatient. IMM reviewed, placed on chart, pt has a copy.
Original Note:
CM following re: discharge planning.
Reviewed pt's chart, met with pt and spoke to pt's daughter Kate over the phone and she stated she has POA.
Patient is a 69-year-old male with OBS status and primary dx of Febrile Seizure. PMH significant for CAD, CVA, carotid stenosis, aortic stenosis status post AVR, hypertension, hyperlipidemia, Parkinson's, and recent admission to the hospital due to
orthostasis, syncope and UTI.
OBS status reviewed verbally with pt and his daughter Kate, placed on chart, pt has a copy.
Pt resides alone in an apartment, second floor, 19 steps up, no elevator access, has 4 supportive daughters, daughter Kate has POA.
Patient has a cane, current with [facility].
PCP Yelitza Rachel
Pharmacy [facility],
D/C plan: return back home with resumptions of [facility] and family support.
CM will follow with discharge plan updaters as hospitalization progresses
--- NOTE | 2025-02-08 09:55 | W.PN.HOSP.TC ---
Today's Communication/Plan
-
Blood culture
Pelvic CT
Consult ID
Assessment / Plan
Assessment / Plan
Physical Exam
General: Other (69y M in no acute distress.)
HEENT: Moist mucous membranes, PERRLA and Other (Poor dentition)
Respiratory: Clear; No Wheezes, Rales or Rhonchi
Cardiac: S1/S2 and Regular Rhythm; No Murmur
GI: Soft, Non Tender, Non Distended and Normal Bowel Sounds
Musculoskeletal: No Clubbing, No Cyanosis and No Edema
Skin: no rash
Neuro: AO x 3, No Motor Deficits, Nonfocal/grossly intact and Other (No nystagmus. Normal cerebellar signs.)
Psych: calm
A/P:
suspected febrile seizure Vs orthostatic syncope
I d/w neurologist automation and control engineer, no need to change Topamax, check orthostatic BP, will see pt is office ( appointment in February)
Hx of seizures
- continue Topamax
Febrile illness, new
- COVID +, probably hospital acquired in setting of recent hospitalization
- isolation
- supportive care; fever control most imperative
- saline spray
Await blood culture
No hypoxia, complains of runny nose
Consult ID for further recommendations
staph capitis UTI, seems recurrent
renal function at baseline
will order pelvic CT
Order blood culture to rule out bacteremia
- recently hospitalized for Staph UTI and was on Levaquin; tolerated well without fever
Appreciate ID help
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
- continue compression therapy
- continue IVF
- midodrine prn
- monitor tele with seizure
- Echo last admit: prosthetic valve thickening otherwise normal study
- PT/OT - home health as per prior hospitalization
Vertigo
- recent neuroimaging testing 01/15 was negative for VBI
- prn Meclizine
- home health as per prior hospitalization
Chronic CVAs
Hx of TIAs
HX of migraines
- continue ASA/Statin/Zetia
s/p BioAVR
Essential HTN
- metoprolol was stopped last admission with history of neurogenic orthostasis from Parkinsons
Type 2 DM
- diet controlled
- SSI
DVT ppx: Lovenox
Code: Full
Total time spent to see the patient, examine the patient, review data lab result, discuss treatment plan with patient, nursing staff around 55 minutes
Anticipated Discharge: > 48 hours
Subjective/Interval History
-
Date of Service: February 08, 2025
He complains of nasal congestion
No fever, denies sore throat
Reports mild dry cough
Objective Data
-
Labs:
Laboratory Results
02/08/25
05:42
WBC 5.1
Hgb 12.5 L
Hct 38.1 L
Plt Count 105 L
Sodium 138
Potassium 3.9
Chloride 110 H
Carbon Dioxide 21 L
BUN 19
Creatinine 1.1
Glucose 118 H
Calcium 8.9
Vital Signs:
Vital Signs
Temp Pulse Resp BP Pulse Ox
98.4 F 91 20 138/83 100
02/08/25 07:44 02/08/25 07:44 02/08/25 07:44 02/08/25 07:44 02/08/25 07:44
I&O
02/07/25 02/08/25 02/09/25
06:59 06:59 06:59
Intake Total 480 / 480
Balance 480 / 480
[2025-02-08 11:44] LABS: Glucose - Point of Care 168 mg/dl (70-99)
[2025-02-08] MEDS: NOVOLOG FLEXPEN-LOW RESISTANCE 1 UNITS SC (12:57)
--- NOTE | 2025-02-08 16:00 | EEG.RPT ---
Electroencephalogram Report
Recording
Date of EE02/08/25
Type of EEG: Routine
Length of EEG recordin minutes
Done with Video Recording: Yes
Patient Status: Inpatient
Recording Conditions: Awake and Drowsy
Hyperventilation Performed: No
Photic Stimulation Performed: Yes
Report
LESS THAN 1 HOUR REPORT
LESS THAN 1 HOUR EEG INTERPRETATION:
Mild to moderately abnormal EEG for age mild diffuse bihemispheric slowing
CLINICAL CORRELATION:
This study was suggestive of diffuse cortical dysfunction without focal abnormality. No seizures were recorded. If concerns remain regarding seizures, consideration for prolonged EEG recording may be given.
Clinical correlation is advised.
METHODS:
A 21 channel digitized electroencephalogram (EEG) was performed in the [facility]. The 10/20 international system of electrode placement was used with ECG and lateral/vertical eye movements recorded. The [employer] quantitative
measurement system was utilized.
QUALITY OF STUDY:
Good
ELECTROENCEPHALOGRAPHER IMPRESSION(S):
Background
Medium amplitude fairly to poorly organized anterior-posterior voltage gradient of theta maximal activity
There were no significant asymmetries of background activity noted.
Sleep
Drowsiness present
Photic Stimulation
Failed to activate the record
ECG
Normal sinus rhythm
[2025-02-08 18:02] LABS: Glucose - Point of Care 122 mg/dl (70-99)
[2025-02-08] MEDS: CRESTOR 20 MG PO (18:51)
[2025-02-08] MEDS: LOVENOX 40 MG SC (18:52)
[2025-02-08] MEDS: MOTRIN 400 MG PO (20:10)
[2025-02-08 22:07] LABS: Glucose - Point of Care 122 mg/dl (70-99)
[2025-02-09 03:19] VITALS: BP 122/96
[2025-02-09 06:00] VITALS: BMI 25.8
[2025-02-09 07:25] VITALS: BP 108/71
[2025-02-09 07:25] LABS: Glucose - Point of Care 111 mg/dl (70-99)
[2025-02-09] MEDS: NOVOLOG FLEXPEN-LOW RESISTANCE SC ×3 (08:34→17:20)
--- NOTE | 2025-02-09 08:58 | W.PN.HOSP.TC ---
Today's Communication/Plan
-
Reports some neurological changes ( facial & hand numbness), will d/w neurology ( consulted)
EEG
Symptomatic TX for COVID, f/w ID recommendations
Assessment / Plan
Assessment / Plan
Physical Exam
General: Other (69y M in no acute distress.)
HEENT: Moist mucous membranes, PERRLA and Other (Poor dentition)
Respiratory: Clear; No Wheezes, Rales or Rhonchi
Cardiac: S1/S2 and Regular Rhythm; No Murmur
GI: Soft, Non Tender, Non Distended and Normal Bowel Sounds
Musculoskeletal: No Clubbing, No Cyanosis and No Edema
Skin: no rash
Neuro: AO x 3, No Motor Deficits, Nonfocal/grossly intact and Other (No nystagmus. Normal cerebellar signs.)
Psych: calm
A/P:
#suspected febrile seizure Vs orthostatic syncope
I d/w neurologist no need to change Topamax, checked orthostatic BP, no hypotension but pt reports feeling dizzy upon standing.
Order EEG
Hx of seizures
- continue Topamax
Appreciate neurology help
Chronic CVAs
Pt complains of numbness in right face/ right hand
He also complained of pain in right fingers, seems cervical radiculopathy but can not explain right face numbness
Hx of TIAs
HX of migraines
- continue ASA/Statin/Zetia
Will d/w neurology
Acute COVID +
he continues to have runny nose/ congestion and discomfort
He has cough
Had 100.2 over night
will do Cepacol, Tessalon, Robitussin
- isolation
- saline spray
Await blood culture
No hypoxia, complains of runny nose
Consulted ID for further recommendations
staph capitis UTI, seems recurrent
renal function at baseline
Order blood culture to rule out bacteremia
- recently hospitalized for Staph UTI and was on Levaquin; tolerated well without fever
Appreciate ID help
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
- continue compression therapy
- continue IVF
- midodrine prn
- monitor tele with seizure
- Echo last admit: prosthetic valve thickening otherwise normal study
- PT/OT - home health as per prior hospitalization
Vertigo
- recent neuroimaging testing 01/15 was negative for VBI
- prn Meclizine
- home health as per prior hospitalization
s/p BioAVR
Essential HTN
- metoprolol was stopped last admission with history of neurogenic orthostasis from Parkinsons
Type 2 DM
- diet controlled
- SSI
DVT ppx: Lovenox
Code: Full
Total time spent to see the patient, examine the patient, review data lab result, discuss treatment plan with patient, nursing staff around 55 minutes
Anticipated Discharge: 24 - 48 hours
Subjective/Interval History
-
Date of Service: February 09, 2025
He reports numbness in right face and right two fingers started last night, he has also some pain in same fingers
He reports congestion/ runny nose/ sore throat, asking for Armbrust
Objective Data
-
Vital Signs:
Vital Signs
Temp Pulse Resp BP Pulse Ox
97.7 F 81 16 108/71 100
02/09/25 07:25 02/09/25 07:25 02/09/25 07:25 02/09/25 07:25 02/09/25 07:25
I&O
02/08/25 02/09/25 02/10/25
06:59 06:59 06:59
Intake Total 480 / 480 1260 / 1260
Balance 480 / 480 1260 / 1260
[2025-02-09] MEDS: MAGNESIUM OXIDE 400 MG PO (09:02)
[2025-02-09] MEDS: VITAMIN C 500 MG PO (09:02)
[2025-02-09] MEDS: TOPAMAX 100 MG PO ×2 (09:02→20:28)
[2025-02-09] MEDS: VITAMIN D3 (cholecalciferol) 25 MCG PO ×2 (09:02→20:28)
[2025-02-09] MEDS: ASPIRIN 325 MG PO (09:02)
[2025-02-09] MEDS: ZETIA 10 MG PO (09:02)
[2025-02-09] MEDS: ANESTHETIC LOZENGE 1 LOZENGE PO (09:02)
[2025-02-09] MEDS: LEVAQUIN 500 MG PO (09:02)
[2025-02-09] MEDS: VITAMIN B-12 1000 MCG PO (09:03)
[2025-02-09 10:46] VITALS: BMI 25.8
[2025-02-09 11:26] VITALS: BP 116/72
[2025-02-09] MEDS: TESSALON PERLES 100 MG PO ×2 (11:53→22:06)
[2025-02-09 12:01] LABS: Glucose - Point of Care 108 mg/dl (70-99)
--- NOTE | 2025-02-09 12:19 | CON.NEURO ---
Neuro Assessment/Plan
Assessment
Recurrent right arm and leg sensation change with recent evaluation for vertigo and self-stated history of 'migraine-stroke.' Not clear that the patient is experiencing parkinsonism, although he is slightly bradykinetic. This bradykinesia may be
due to the use of topiramate which in turn is most likely being utilized for migraine prophylaxis.
Patient most likely having recurrent episodes of migraine with aura.
Plan
provide Prochlorperazine for likely migrainous associated symptoms
follow orthostatics
continue Midodrine
unclear reason for Topiramate, ? for migraine prophylaxis, continue for now
provide abdominal binder for orthostasis
continue aspirin
continue supportive care for COVID-19
obtain records from prior neurologist
Will follow as outpatient.
Consultation
Order
Date of Consultation: 02/09/25
Requesting Provider: Hospitalists
Reason for Consult: Right-sided sensation change
Subjective/Objective
Subjective Data
Date of Service: February 09, 2025
Patient presented to this hospital's emergency department hours after discharge from this hospital with acute onset of fever and what was described as generalized shaking. The patient at that time, according to reports, do not lose control of bowel
or bladder. Subsequently, patient was found to have COVID-19. During the prior hospitalization, the patient was admitted for vertigo and found to have significant orthostasis. The patient was also provided with a diagnosis of parkinsonism by the
on-call neurologist, although medications were not initiated.
After rehospitalization, patient was described as having right arm and right facial sensation change ongoing for greater than 24 hours. He does not report any other associated symptoms. He has had prior episodes of facial sensation change and arm
function change in the past. Patient is unable to provide additional history. No known modifying factors.
Objective Data
Vital Signs
Temp Pulse Resp BP Pulse Ox
36.4 C 81 16 116/72 99
02/09/25 11:26 02/09/25 11:26 02/09/25 11:26 02/09/25 11:26 02/09/25 11:26
Lab Results
02/08/25 05:42
02/08/25 05:42
Sodium 138 mmol/L (135-145) 02/08/25 05:42
Potassium 3.9 mmol/L (3.5-5.1) 02/08/25 05:42
BUN 19 mg/dl (9-20) 02/08/25 05:42
Glucose 118 mg/dl (70-99) H 02/08/25 05:42
Calcium 8.9 mg/dl (8.4-10.2) 02/08/25 05:42
Patient Allergies
cephalexin monohydrate (From Keflex) Allergy (Verified 01/15/25 16:34)
Hives
clindamycin Allergy (Verified 01/15/25 16:34)
Rash
cyclobenzaprine HCl (From Flexeril) Allergy (Verified 01/15/25 16:34)
palpitations
erythromycin lactobionate (From Erythrocin) Allergy (Verified 01/15/25 16:34)
Hives
hydroxyzine HCl (From Atarax) Allergy (Verified 01/15/25 16:34)
Hives
Penicillins Allergy (Verified 01/15/25 16:34)
Rash
Sulfa (Sulfonamide Antibiotics) Allergy (Verified 01/15/25 16:34)
loose stool
tetracycline Allergy (Verified 01/15/25 16:34)
Unknown
vancomycin Allergy (Verified 01/15/25 16:34)
Unknown
Review of Systems
-
History Source: Patient
All other systems: Reviewed and negative
EENT: Negative Swallowing Difficulty
Respiratory: Negative Trouble Breathing
Cardiac: Negative Chest Pain
Genitourinary: Negative Incontinence
Neuro: Headache; Negative Dizzy
Physical Exam
-
General: No Apparent Distress and Appears Stated Age; Negative Wearing Oxygen
Eyes: OU Absent Papilledema, Round OU, Blanket Conjunctivae and No Ptosis
HEENT: Anicteric and Moist Mucous Membranes
Neck: Full Range of Motion
Respiratory: No Dyspnea
Cardiac: No JVD
GI: Non-distended
Skin: Unremarkable
Extremities: No Clubbing, No Cyanosis and No Edema
Psych: Negative Intact Judgement/Insight
Extended Neurological Exam
Mood & Affect: Mood Unremarkable; Negative Affect Unremarkable (Mildly aloof)
Attention Span & Concentration: Awake, Alert, Interactive and No Difficulty with 2 Step Request
Memory: Unremarkable
Tremor: Hand Tremor Absent and Head Tremor Absent
Speech: Quality Unremarkable and Mildly Reduced Output; Negative Hoarse
Cranial Nerve II: Left Eye: Pupillary Reactivity Unremarkable, Pupillary Size Unremarkable and Visual Hauser Intact
Cranial Nerve II: Right Eye: Pupillary Reactivity Unremarkable, Pupillary Size Unremarkable and Visual Hauser Intact
Cranial Nerves III, IV, : Extraocular Movement: Extraocular Movement Full in all Directions
Cranial Nerve VII: Facial Symmetry: Normal Facial Symmetry
Cranial Nerve VIII: Hearing: Unremarkable Hearing to Normal Conversational Volume
Cranial Nerves IX, X: Palate Movement: Palate Elevation Symmetric
Cranial Nerve XI: Shoulder Shrug: Unremarkable
Cranial Nerve XII: Tongue Protusion: Midline
Muscle Strength, Overall: Spontaneously Moves
Muscle Bulk & Tone: Bulk Unremarkable and Tone Unremarkable
Pronator Drift: No Drift in Upper Extremities and No Drift in Lower Extremities
Deep Tendon Reflexes: Unremarkable Throughout
Touch Sensation: Unremarkable
Coordination: [id number] Testing Unremarkable
Babinski Sign: Absent Bilaterally
Data Reviewed
-
MRI Head: Report Reviewed
Labs: Report Reviewed
Reviewed with: Physician and Patient
Old Records: Summarized
Medications
-
Active Medications
Generic Name Dose Route Start Last Admin
Trade Name Freq PRN Reason Stop Dose Admin
Ascorbic Acid 500 mg 02/08/25 08:00 02/09/25 09:02
Ascorbic Acid 500 Mg Tablet PO 03/08/25 07:59 500 mg
DAILY SYLVIE Administration
Aspirin 325 mg 02/08/25 08:00 02/09/25 09:02
Aspirin 325 Mg Tablet PO 03/08/25 07:59 325 mg
DAILY SYLVIE Administration
Benzocaine/Menthol 1 lozenge 02/09/25 07:58 02/09/25 09:02
Benzocaine/Menthol Lozenge PO 03/09/25 07:57 1 lozenge
Q4HPRN PRN Administration
nasal congestion/sore throat
Bisacodyl 10 mg 02/07/25 19:15
Bisacodyl 10 Mg Rectal Suppository RECTAL 03/07/25 19:14
[id number] PRN
constipation
Cholecalciferol 25 mcg 02/07/25 20:00 02/09/25 09:02
Cholecalciferol (Vitamin D3) 25 Mcg Tablet (1,000 Units) PO 03/07/25 19:59 25 mcg
BID SYLVIE Administration
Cyanocobalamin 1,000 mcg 02/08/25 08:00 02/09/25 09:03
Cyanocobalamin (Vitamin B-12) 500 Mcg Tablet PO 03/08/25 07:59 1,000 mcg
DAILY SYLVIE Administration
Dextrose 12.5 grams 02/07/25 19:15
Dextrose 50% (0.5 Grams/Ml) 50 Ml Syringe IV 03/07/25 19:14
[id number] PRN
hypoglycemia
Protocol
Ezetimibe 10 mg 02/08/25 08:00 02/09/25 09:02
Ezetimibe (Zetia) 10 Mg Tablet PO 03/08/25 07:59 10 mg
DAILY SYLVIE Administration
Enoxaparin Sodium 40 mg 02/08/25 18:00 02/08/25 18:52
Enoxaparin Sodium 40 Mg/0.4 Ml Syringe SC 03/08/25 17:59 40 mg
QPM SYLVIE Administration
Glucagon 1 mg 02/07/25 19:15
Glucagon 1 Mg Vial IM 03/07/25 19:14
PRN PRN
hypoglycemia
Protocol
Guaifenesin/Dextromethorphan 10 ml 02/09/25 10:52
Guaifenesin/Dextromethorphan 200 Mg/10 Ml Cup PO 03/09/25 10:51
Q4HPRN PRN
cough
Ibuprofen 400 mg 02/08/25 00:00 02/08/25 20:10
Ibuprofen 400 Mg Tablet PO 03/08/25 00:00 400 mg
Q6HPRN PRN Administration
mild pain
Insulin Aspart 0 units 02/08/25 07:30 02/09/25 12:00
Insulin Aspart Low Resistance 300 Units/3 Ml Pen.Injctr SC 03/08/25 07:29 Not Given
AC SYLVIE
Protocol
Levofloxacin 500 mg 02/08/25 08:00 02/09/25 09:02
Levofloxacin 500 Mg Tablet PO 500 mg
DAILY SYLVIE Administration
Magnesium Oxide 400 mg 02/08/25 08:00 02/09/25 09:02
Magnesium Oxide 400 Mg Tablet PO 03/08/25 07:59 400 mg
DAILY SYLVIE Administration
Meclizine HCl 25 mg 02/07/25 19:15
Meclizine 25 Mg Tablet PO 03/07/25 19:14
Q8HPRN PRN
dizziness
Midodrine 2.5 mg 02/07/25 19:15
Midodrine 2.5 Mg Tablet PO
Q8HPRN PRN
symptomatic orthostasis
Ondansetron HCl 4 mg 02/07/25 19:15
Ondansetron 4 Mg/2 Ml Vial IV 03/07/25 19:14
Q6HPRN PRN
nausea and vomiting
Polyethylene Glycol 17 grams 02/07/25 19:15
Polyethylene Glycol Powder 17 Grams Packet PO 03/07/25 19:14
DAILYPRN PRN
constipation
Rosuvastatin Calcium 20 mg 02/08/25 18:00 02/08/25 18:51
Rosuvastatin (Crestor) 20 Mg Tablet PO 03/08/25 17:59 20 mg
QPM SYLVIE Administration
Senna/Docusate Sodium 1 tablet 02/07/25 19:15
Docusate W/Senna (Joan-Colace) Tablet PO 03/07/25 19:14
BIDPRN PRN
constipation
Sodium Chloride 2 sprays 02/07/25 19:15
Sodium Chloride 0.65% Nasal [place] 45 Ml Bottle NASAL 03/07/25 19:14
QIDPRN PRN
nasal congestion
Topiramate 100 mg 02/07/25 23:47 02/09/25 09:02
Topiramate 100 Mg Tablet PO 03/07/25 21:59 100 mg
BID SYLVIE Administration
Home Medications
�Medication �Instructions �Recorded
ascorbic acid (vitamin C) 500 mg 500 mg PO DAILY Supplement 11/18/15
tablet (Vitamin C)
butterbur root extract 50 mg 50 mg PO DAILY Supplement ##0 11/18/15
capsule
cholecalciferol (vitamin D3) 25 1,000 unit PO BID Supplement 11/18/15
mcg (1,000 unit) capsule (Vitamin
D3)
cyanocobalamin (vitamin B-12) 1,000 mcg PO DAILY Supplement ##0 11/18/15
1,000 mcg tablet
gilmar root-herbal drugs 450 mg 450 cap PO DAILY Supplement ##0 11/18/15
capsule
magnesium oxide 400 mg PO DAILY Supplement ##0 11/18/15
riboflavin (vitamin B2) 100 mg 200 mg PO BID Supplement 11/18/15
tablet (Vitamin B-2)
turmeric 400 mg capsule 400 mg PO DAILY Supplement ##0 11/18/15
aspirin 325 mg tablet,delayed 325 mg PO DAILY Blood Clot 11/29/24
release Prevention/Tx
ezetimibe 10 mg tablet 10 mg PO DAILY High Cholesterol 01/15/25
rosuvastatin 20 mg tablet 20 mg PO QPM #30 tabs 01/18/25
omega 4-ccj-lzz-fish oil 1,000 mg 1 cap PO DAILY Supplement 02/05/25
(120 mg-180 mg) capsule (Fish Oil)
topiramate 50 mg tablet 100 mg PO BID Neurological 02/05/25
Condition
levofloxacin 500 mg tablet 500 mg PO DAILY #4 tabs 02/07/25
meclizine 25 mg tablet 25 mg PO Q8HPRN PRN dizziness #30 02/07/25
tabs
midodrine 2.5 mg tablet 2.5 mg PO Q8HPRN PRN symptomatic 02/07/25
orthostasis #90 tabs
Past History
Past History
ED Past Medical History: HTN, Hypercholesterolemia, IDDM, Valvular disease and Other (Migraines)
ED Past Surgical History: Cardiac (Aortic valve replacement 2016, [facility])
Social History
Tobacco: Non-smoker
Alcohol: None
Drug: None
Personal:
Living: with family
Employment: Retired
Family History
Family History: Other (reviewed and non-contributory)
Medications
-
Medications:
Generic Name Dose Route Start Last Admin
Trade Name Freq PRN Reason Stop Dose Admin
Ascorbic Acid 500 mg 02/08/25 08:00 02/09/25 09:02
Ascorbic Acid 500 Mg Tablet PO 03/08/25 07:59 500 mg
DAILY SYLVIE Administration
Aspirin 325 mg 02/08/25 08:00 02/09/25 09:02
Aspirin 325 Mg Tablet PO 03/08/25 07:59 325 mg
DAILY SYLVIE Administration
Benzocaine/Menthol 1 lozenge 02/09/25 07:58 02/09/25 09:02
Benzocaine/Menthol Lozenge PO 03/09/25 07:57 1 lozenge
Q4HPRN PRN Administration
nasal congestion/sore throat
Bisacodyl 10 mg 02/07/25 19:15
Bisacodyl 10 Mg Rectal Suppository RECTAL 03/07/25 19:14
[id number] PRN
constipation
Cholecalciferol 25 mcg 02/07/25 20:00 02/09/25 09:02
Cholecalciferol (Vitamin D3) 25 Mcg Tablet (1,000 Units) PO 03/07/25 19:59 25 mcg
BID SYLVIE Administration
Cyanocobalamin 1,000 mcg 02/08/25 08:00 02/09/25 09:03
Cyanocobalamin (Vitamin B-12) 500 Mcg Tablet PO 03/08/25 07:59 1,000 mcg
DAILY SYLVIE Administration
Dextrose 12.5 grams 02/07/25 19:15
Dextrose 50% (0.5 Grams/Ml) 50 Ml Syringe IV 03/07/25 19:14
[id number] PRN
hypoglycemia
Protocol
Ezetimibe 10 mg 02/08/25 08:00 02/09/25 09:02
Ezetimibe (Zetia) 10 Mg Tablet PO 03/08/25 07:59 10 mg
DAILY SYLVIE Administration
Enoxaparin Sodium 40 mg 02/08/25 18:00 02/08/25 18:52
Enoxaparin Sodium 40 Mg/0.4 Ml Syringe SC 03/08/25 17:59 40 mg
QPM SYLVIE Administration
Glucagon 1 mg 02/07/25 19:15
Glucagon 1 Mg Vial IM 03/07/25 19:14
PRN PRN
hypoglycemia
Protocol
Guaifenesin/Dextromethorphan 10 ml 02/09/25 10:52
Guaifenesin/Dextromethorphan 200 Mg/10 Ml Cup PO 03/09/25 10:51
Q4HPRN PRN
cough
Ibuprofen 400 mg 02/08/25 00:00 02/08/25 20:10
Ibuprofen 400 Mg Tablet PO 03/08/25 00:00 400 mg
Q6HPRN PRN Administration
mild pain
Insulin Aspart 0 units 02/08/25 07:30 02/09/25 12:00
Insulin Aspart Low Resistance 300 Units/3 Ml Pen.Injctr SC 03/08/25 07:29 Not Given
AC SYLVIE
Protocol
Levofloxacin 500 mg 02/08/25 08:00 02/09/25 09:02
Levofloxacin 500 Mg Tablet PO 500 mg
DAILY SYLVIE Administration
Magnesium Oxide 400 mg 02/08/25 08:00 02/09/25 09:02
Magnesium Oxide 400 Mg Tablet PO 03/08/25 07:59 400 mg
DAILY SYLVIE Administration
Meclizine HCl 25 mg 02/07/25 19:15
Meclizine 25 Mg Tablet PO 03/07/25 19:14
Q8HPRN PRN
dizziness
Midodrine 2.5 mg 02/07/25 19:15
Midodrine 2.5 Mg Tablet PO
Q8HPRN PRN
symptomatic orthostasis
Ondansetron HCl 4 mg 02/07/25 19:15
Ondansetron 4 Mg/2 Ml Vial IV 03/07/25 19:14
Q6HPRN PRN
nausea and vomiting
Polyethylene Glycol 17 grams 02/07/25 19:15
Polyethylene Glycol Powder 17 Grams Packet PO 03/07/25 19:14
DAILYPRN PRN
constipation
Rosuvastatin Calcium 20 mg 02/08/25 18:00 02/08/25 18:51
Rosuvastatin (Crestor) 20 Mg Tablet PO 03/08/25 17:59 20 mg
QPM SYLVIE Administration
Senna/Docusate Sodium 1 tablet 02/07/25 19:15
Docusate W/Senna (Joan-Colace) Tablet PO 03/07/25 19:14
BIDPRN PRN
constipation
Sodium Chloride 2 sprays 02/07/25 19:15
Sodium Chloride 0.65% Nasal [place] 45 Ml Bottle NASAL 03/07/25 19:14
QIDPRN PRN
nasal congestion
Topiramate 100 mg 02/07/25 23:47 02/09/25 09:02
Topiramate 100 Mg Tablet PO 03/07/25 21:59 100 mg
BID SYLVIE Administration
--- NOTE | 2025-02-09 12:21 | CM ---
CM following re: discharge planning.
Reviewed pt's chart, met with pt and spoke to pt's daughter Kate over the phone and she stated she has POA.
Pt resides alone in an apartment, second floor, 19 steps up, no elevator access, has 4 supportive daughters, daughter Kate has POA.
Patient has a cane, current with [facility].
Pt brought to me his concerns regarding living alone. Pt stated he lives in subsidized apartment and feels he needs a room mate who can help. CM explained to the pt that room mate is not to help and he might need home more structured environment to
live. Pt stated he feels he needs to be placed to a half-way and be able to go to his [facility] for [facility] daily. CM explained to the pt that hi might not be able to go to his club house as a half-way resident and pt expressed his
disappointed feelings. Pt asked to talk to his daughter Kate VALENTE and his apartment building social worker masters Astrid [phone].
CM spoke to pt;s daughter and she stated that pt goes to [facility] outpatient mental health center managed by [facility], pt has Bipolar disorder. Per daughter, pt has never been in inpatient psychiatric hospital in the past 2 years, does
not have ICM but goes to [facility] outpatient psychiatric services. Pt's daughter stated that she and social jasmeet Resendiz are working on enrolling the pt in Medicaid to get waiver community based services. CM provided pt's daughter with
information regarding [facility] and she stated she will call them to start the process to enroll the pt to [facility] program.
KRISSY spoke to social worker masters Erin and she stated she is trying her best to enrol the pt in Medicaid and pt was denied due to not able to fax to [facility] Physician certification form. pantry goods worker Erin will fax to this physician certification form to
complete and to sign by MD. Per Astrid, [facility] might not serve the area pt lives and she will follow up with [facility]. Per Astrid pt does not have ICM at [facility].
PT and OT evaluations noted -home PT/OT recommenced. Pt is current with [facility] and [facility] liaison following.
CM is coordinating with social worker masters Astrid from pt's apartment building and pt's daughter a safe discharge plan and supportive services at home
D/C plan: return back home with resumptions of [facility], follow up with [place] social worker masters at apartment building and family support. detention placement might be an option if no supportive services at pt's apartment in place.
CM will follow with discharge plan updaters as hospitalization progresses
--- NOTE | 2025-02-09 12:54 | W.PN.ID1 ---
Date of Service
Date of Service: February 09, 2025
Today's Communication
Continue levofloxacin.
Assessment / Plan
69-year-old male with past medical history of CAD, CVA, carotid stenosis, aortic stenosis status post AVR, hypertension, hyperlipidemia, Parkinson's, and recent admission to the hospital due to orthostasis, syncope and UTI returns for potential
witnessed seizure.
COVID-19 positive
Fever
Bacteriuria with Staph capitis; suspected complicated urinary tract infection
Recommendations:
Continue with COVID-19 isolation. Given the lack of significant symptomatology, no indication to begin remdesivir or Paxlovid.
Follow-up for any additional fevers.
Monitor white count.
Continue levofloxacin (day #5) to complete a 7-day course.
����������������������������������������������������������
Chief Complaint
-: Other (COVID-19; urinary tract infection)
Subjective / Review of Systems
Patient seen and examined. Reports some nasal congestion and rhinorrhea, but denies any shortness of breath and notes only minimal cough without sputum production.
Review of Systems: No Fever and No Chills
Vital Signs / Physical Exam
Vital Signs
Vital Signs
Temp Pulse Resp BP Pulse Ox
97.5 F 81 16 116/72 99
02/09/25 11:26 02/09/25 11:26 02/09/25 11:26 02/09/25 11:26 02/09/25 11:26
Physical Exam
Constitutional: No Acute Distress, Chronically Ill and Non-toxic
Eyes: Sclera Anicteric
Cardiovascular: S1/S2; Negative S3/S4
Pulmonary: Non Labored; Negative Wheezes or Rales
Gastrointestinal: Soft, Non Tender and Non Distended
Extremities: Negative Edema, Cyanosis or Erythema
Neurological: Awake and Alert
Psychological: Calm
Objective Data
Lab Data
Lab Results
02/08/25 05:42
02/08/25 05:42
Estimated Creat Clear 71 ml/min 02/08/25 05:42
Lactic Acid 0.9 mmol/L (0.7-2.0) 02/07/25 17:32
Total Bilirubin 0.6 mg/dl (0.2-1.3) 02/07/25 17:32
AST 29 U/L (17-59) 02/07/25 17:32
ALT 37 U/L (0-50) 02/07/25 17:32
Alkaline Phosphatase 59 U/L (38-126) 02/07/25 17:32
Most recent labs reviewed.
Micro Results:
02/07/25 17:32 Blood Culture - Preliminary
Blood/Venous No Growth in 24 hours- Final report to follow
02/07/25 19:00 Urine Culture - Pending
Urine
02/07/25 18:05 Influenza Types A & B (AYALA) - Final
Nasal Swab Negative for Influenza A & B, NAAT
Negative results must be combined with clinical observations
and patient history.
Nucleic Acid Amplification test (NAAT)performed on the
[employer] platform.
Imaging:
02/07/2025 CXR (2 View)- No focal consolidation, pleural effusion, or pneumothorax. Sternotomy wires and an aortic valve prosthesis. The cardiomediastinal silhouette is normal. Chronic degenerative changes of the spine.
--- NOTE | 2025-02-09 13:01 | PTCARENOTE ---
pt with coughing episodes intermittently. tessalon perles added for one time dose and lozenge given.
[2025-02-09 15:15] VITALS: BP 116/71; BP 119/73; BP 126/68; PULSE 100; PULSE 99
[2025-02-09 15:21] VITALS: BP 119/73
[2025-02-09 17:15] LABS: Glucose - Point of Care 128 mg/dl (70-99)
[2025-02-09] MEDS: CRESTOR 20 MG PO (17:56)
[2025-02-09] MEDS: LOVENOX 40 MG SC (17:56)
[2025-02-09 21:14] LABS: Glucose - Point of Care 200 mg/dl (70-99)
[2025-02-09 23:32] VITALS: BP 105/64
[2025-02-10 07:15] VITALS: BP 127/84
[2025-02-10 08:25] LABS: Glucose - Point of Care 136 mg/dl (70-99)
[2025-02-10] MEDS: ASPIRIN 325 MG PO (09:05)
[2025-02-10] MEDS: VITAMIN D3 (cholecalciferol) 25 MCG PO ×2 (09:06→21:19)
[2025-02-10] MEDS: LEVAQUIN 500 MG PO (09:06)
[2025-02-10] MEDS: ZETIA 10 MG PO (09:06)
[2025-02-10] MEDS: VITAMIN B-12 1000 MCG PO (09:06)
[2025-02-10] MEDS: TESSALON PERLES 100 MG PO ×3 (09:06→21:19)
[2025-02-10] MEDS: TOPAMAX 100 MG PO ×2 (09:06→21:19)
[2025-02-10] MEDS: MAGNESIUM OXIDE 400 MG PO (09:06)
[2025-02-10] MEDS: VITAMIN C 500 MG PO (09:06)
[2025-02-10] MEDS: ANESTHETIC LOZENGE 1 LOZENGE PO ×2 (09:10→16:19)
--- NOTE | 2025-02-10 09:30 | W.PN.HOSP.TC ---
Today's Communication/Plan
-
Discharge in AM
Ok to shower
Tessalon
Assessment / Plan
Assessment / Plan
Physical Exam
General: Other (69y M in no acute distress.)
HEENT: Moist mucous membranes, PERRLA and Other (Poor dentition)
Respiratory: Clear; No Wheezes, Rales or Rhonchi
Cardiac: S1/S2 and Regular Rhythm; No Murmur
GI: Soft, Non Tender, Non Distended and Normal Bowel Sounds
Musculoskeletal: No Clubbing, No Cyanosis and No Edema
Skin: no rash
Neuro: AO x 3, No Motor Deficits, Nonfocal/grossly intact and Other (No nystagmus. Normal cerebellar signs.)
Psych: calm
A/P:
#suspected febrile seizure Vs orthostatic syncope
Hx of CVA, TIA
I d/w neurologist no need to change Topamax, checked orthostatic BP, no hypotension but pt reports feeling dizzy upon standing.
Ordered EEG
Hx of seizures
- continue Topamax
Pt complained of numbness in right face/ right hand, resolved. Seen by neurology, seems c/w Migraine
HX of migraines
- continue ASA/Statin/Zetia
Appreciate neurology help
#Acute COVID +
He is feeling better with supportive care, Tessalon \\
No significant cough
Afebrile
c/w pRN Cepacol, Tessalon, Robitussin
- isolation
- saline spray
Blood culture NGTD
No hypoxia
CXR no active disease
Appreciate ID help
#staph capitis UTI, seems recurrent
renal function at baseline
Order blood culture to rule out bacteremia
- recently hospitalized for Staph UTI and was on Levaquin; tolerated well without fever
Appreciate ID help
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
- continue compression therapy
- continue IVF
- midodrine prn
- monitor tele with seizure
- Echo last admit: prosthetic valve thickening otherwise normal study
- PT/OT - home health as per prior hospitalization
Vertigo
- recent neuroimaging testing 01/15 was negative for VBI
- prn Meclizine
-
s/p BioAVR
Essential HTN
- metoprolol was stopped last admission with history of neurogenic orthostasis from Parkinson
Type 2 DM
- diet controlled
- SSI
DVT ppx: Lovenox
Code: Full
Total time spent to see the patient, examine the patient, review data lab result, discuss treatment plan with patient, nursing staff around 55 minutes
Anticipated Discharge: Within 24 hours
Subjective/Interval History
-
Date of Service: February 10, 2025
He reports resolution of facial and right hand numbness
Objective Data
-
Vital Signs:
Vital Signs
Temp Pulse Resp BP Pulse Ox
97.7 F 77 18 127/84 99
02/10/25 07:15 02/10/25 07:15 02/10/25 07:15 02/10/25 07:15 02/10/25 07:15
I&O
02/09/25 02/10/25 02/11/25
06:59 06:59 06:59
Intake Total 1260 / 1260 1260 / 1260
Balance 1260 / 1260 1260 / 1260
--- NOTE | 2025-02-10 11:24 | W.PN.ID1 ---
Date of Service
Date of Service: February 10, 2025
Today's Communication
Continue current antibiotics.
Assessment / Plan
69-year-old male with past medical history of CAD, CVA, carotid stenosis, aortic stenosis, hx AVR, hypertension, hyperlipidemia, Parkinson's, and recent admission to the hospital due to orthostasis, syncope and UTI returns for potential witnessed
seizure.
COVID-19 positive
Fever
Bacteriuria with Staph capitis; suspected complicated urinary tract infection
Recommendations:
Continue with COVID-19 isolation. Given the lack of significant symptomatology, no indication to begin remdesivir or Paxlovid.
Follow for any additional fevers.
Monitor white count.
Continue levofloxacin (d#6) to complete a 7-day course.
����������������������������������������������������������
Chief Complaint
-: UTI and Other (COVID-19)
Subjective / Review of Systems
Patient seen and examined. Denies fevers or chills. Notes some ongoing nasal congestion. Denies shortness of breath.
Vital Signs / Physical Exam
Vital Signs
Vital Signs
Temp Pulse Resp BP Pulse Ox
97.7 F 77 18 127/84 99
02/10/25 07:15 02/10/25 07:15 02/10/25 07:15 02/10/25 07:15 02/10/25 07:15
Physical Exam
Constitutional: No Acute Distress, Chronically Ill and Non-toxic
Eyes: Sclera Anicteric
Cardiovascular: S1/S2; Negative S3/S4
Pulmonary: Non Labored; Negative Wheezes or Rales
Gastrointestinal: Soft, Non Tender and Non Distended
Extremities: Negative Edema, Cyanosis or Erythema
Neurological: Awake and Alert
Psychological: Calm
Objective Data
Lab Data
Lab Results
02/08/25 05:42
02/08/25 05:42
Estimated Creat Clear 71 ml/min 02/08/25 05:42
Lactic Acid 0.9 mmol/L (0.7-2.0) 02/07/25 17:32
Total Bilirubin 0.6 mg/dl (0.2-1.3) 02/07/25 17:32
AST 29 U/L (17-59) 02/07/25 17:32
ALT 37 U/L (0-50) 02/07/25 17:32
Alkaline Phosphatase 59 U/L (38-126) 02/07/25 17:32
Most recent labs reviewed.
Micro Results:
02/07/25 17:32 Blood Culture - Preliminary
Blood/Venous No Growth in 48 hours- Final report to follow
02/07/25 19:00 Urine Culture - Final
Urine No Significant Growth
02/07/25 18:05 Influenza Types A & B (AYALA) - Final
Nasal Swab Negative for Influenza A & B, NAAT
Negative results must be combined with clinical observations
and patient history.
Nucleic Acid Amplification test (NAAT)performed on the
[employer] platform.
Imaging:
02/07/2025 CXR (2 View)- No focal consolidation, pleural effusion, or pneumothorax. Sternotomy wires and an aortic valve prosthesis. The cardiomediastinal silhouette is normal. Chronic degenerative changes of the spine.
Chest X-Ray: Image Reviewed and Report Reviewed
--- NOTE | 2025-02-10 14:44 | CM ---
CM following re: discharge planning.
Reviewed pt's chart, met with pt and spoke to pt's daughter August over the phone to update on discharge plan progress.
Pt resides alone in an apartment, second floor, 19 steps up, no elevator access, has 4 supportive daughters, daughter August has POA.
Patient has a cane, current with [facility].
CM spoke to pt's daughter August and she confirmed she is aware of pt's discharge tomorrow and she will transport him home.
CM spoke to [facility] Wiggins [phone] and she is aware of Physician certification form that is ready to sign by MD tomorrow morning and she will continue helping the pt with enrollment to [facility]
waiver community based services.
Physician certification form completed and left on the chart to MD to sign and put MD number.
Please fax signed physician Certification form to [employer] [facility] (Florin) [phone] and [facility] [employer] Astrid [phone]. Please give original form to pt's daughter and she is
aware to ask for that form.
D/C plan: home with resumptions of [facility], follow up with [employer] grain broker and market operator (Florin), follow up with [facility] oncology social worker Astrid and family support. Daughter August to transport.
[2025-02-10 15:34] VITALS: BP 130/84; PULSE 87; O2SAT 100
[2025-02-10 16:24] VITALS: BP 143/83
[2025-02-10] MEDS: CRESTOR 20 MG PO (17:42)
[2025-02-10] MEDS: LOVENOX 40 MG SC (17:42)
[2025-02-10 23:24] VITALS: BP 112/83; BP 116/77; BP 134/83; PULSE 75; PULSE 82; PULSE 95
[2025-02-11] MEDS: ZETIA 10 MG PO (07:42)
[2025-02-11] MEDS: VITAMIN B-12 1000 MCG PO (07:42)
[2025-02-11] MEDS: VITAMIN C 500 MG PO (07:42)
[2025-02-11] MEDS: TOPAMAX 100 MG PO (07:42)
[2025-02-11] MEDS: LEVAQUIN 500 MG PO (07:42)
[2025-02-11] MEDS: MAGNESIUM OXIDE 400 MG PO (07:42)
[2025-02-11] MEDS: ASPIRIN 325 MG PO (07:43)
[2025-02-11] MEDS: TESSALON PERLES 100 MG PO (07:43)
[2025-02-11] MEDS: ANESTHETIC LOZENGE 1 LOZENGE PO (07:43)
[2025-02-11] MEDS: VITAMIN D3 (cholecalciferol) 25 MCG PO (07:43)
[2025-02-11 07:52] VITALS: BP 132/85
--- NOTE | 2025-02-11 09:19 | W.PN.ID1 ---
Addendum entered and electronically signed by Arsen Tatum DO 02/11/25 12:56:
I personally saw and evaluated the patient. I have reviewed the resident�s note and agree with findings and plan as documented in the resident�s note.
Patient overall feeling improved. Denies any urinary symptomatology at present. Notes near resolution of respiratory symptomatology.
The patient had questions regarding isolation, and I have advised wearing a mask for the next 5 days .
Original Note:
Date of Service
Date of Service: February 11, 2025
Today's Communication
Finish last day of Levaquin
Plan for discharge home
Assessment / Plan
69-year-old male with past medical history of CAD, CVA, carotid stenosis, aortic stenosis, hx AVR, hypertension, hyperlipidemia, Parkinson's, and recent admission to the hospital due to orthostasis, syncope and UTI returns for potential witnessed
seizure.
#COVID-19 positive
#Fever
#Bacteriuria with Staph capitis; suspected complicated urinary tract infection
Recommendations:
Continue with COVID-19 isolation. Given the lack of significant symptomatology, no indication to begin remdesivir or Paxlovid.
Follow for any additional fevers.
Monitor white count.
Last day of levofloxacin (d#7) to complete a 7-day course.
To be discharged home by primary team today
����������������������������������������������������������
Chief Complaint
-: UTI and Other (COVID-19)
Subjective / Review of Systems
Patient seen this morning, was resting comfortably in his bed. Reports that his symptoms have pretty much remained unchanged however and he still has the nasal congestion, no postnasal drip. Does not report any further cough or any further fevers
or chills however. Overall feeling good enough to be discharged home.
Review of Systems: No Fever, No Chills, No Headache and No Cough
Vital Signs / Physical Exam
Vital Signs
Vital Signs
Temp Pulse Resp BP Pulse Ox
97.8 F 77 16 132/85 100
02/11/25 07:52 02/11/25 07:52 02/11/25 07:52 02/11/25 07:52 02/11/25 07:52
Physical Exam
Constitutional: No Acute Distress, Comfortable and Non-toxic
Head: Normocephalic
Cardiovascular: Regular Rate and S1/S2; Negative Murmur
Pulmonary: Non Labored; Negative Wheezes or Rales
Gastrointestinal: Soft, Non Tender and Non Distended
Extremities: Negative Edema, Clubbing, Cyanosis or Erythema
Skin: Warm and Dry
Neurological: Awake, Alert, Oriented and AO x 3
Psychological: Calm
Objective Data
Lab Data
Lab Results
02/08/25 05:42
02/08/25 05:42
Estimated Creat Clear 71 ml/min 02/08/25 05:42
Lactic Acid 0.9 mmol/L (0.7-2.0) 02/07/25 17:32
Total Bilirubin 0.6 mg/dl (0.2-1.3) 02/07/25 17:32
AST 29 U/L (17-59) 02/07/25 17:32
ALT 37 U/L (0-50) 02/07/25 17:32
Alkaline Phosphatase 59 U/L (38-126) 02/07/25 17:32
Most recent labs reviewed.
Microbiology: Report Reviewed
Micro Results:
02/07/25 17:32 Blood Culture - Preliminary
Blood/Venous No Growth in 72 hours- Final report to follow
02/07/25 19:00 Urine Culture - Final
Urine No Significant Growth
02/07/25 18:05 Influenza Types A & B (AYALA) - Final
Nasal Swab Negative for Influenza A & B, NAAT
Negative results must be combined with clinical observations
and patient history.
Nucleic Acid Amplification test (NAAT)performed on the
[employer] NOW platform.
Imaging:
02/07/2025 CXR (2 View)- No focal consolidation, pleural effusion, or pneumothorax. Sternotomy wires and an aortic valve prosthesis. The cardiomediastinal silhouette is normal. Chronic degenerative changes of the spine.
--- NOTE | 2025-02-11 10:02 | W.PN.HOSP.TC ---
Today's Communication/Plan
-
dc
Assessment / Plan
Assessment / Plan
Physical Exam
General: Other (69y M in no acute distress.)
HEENT: Moist mucous membranes, PERRLA and Other (Poor dentition)
Respiratory: Clear; No Wheezes, Rales or Rhonchi
Cardiac: S1/S2 and Regular Rhythm; No Murmur
GI: Soft, Non Tender, Non Distended and Normal Bowel Sounds
Musculoskeletal: No Clubbing, No Cyanosis and No Edema
Skin: no rash
Neuro: AO x 3, No Motor Deficits, Nonfocal/grossly intact and Other (No nystagmus. Normal cerebellar signs.)
Psych: calm
A/P:
#suspected febrile seizure Vs orthostatic syncope
Hx of CVA, TIA
I d/w neurologist no need to change Topamax, unlikely seizure, feels Topamax due to migraine, checked orthostatic B, no significant postural hypotension, pt reported it was impossible for him to do PRN midodrine as was recommended last discharge
and could not take it, d/w pt, will do standing low dose BID and he will f/w PCP, he verbalized understanding.
# Pt complained of numbness in right face/ right hand, resolved. Seen by neurology, seems c/w Migraine. Now resolved. Last admission MRI showed no stroke
- continue ASA/Statin/Zetia
Appreciate neurology help
#Acute COVID +
He is feeling better with supportive care, Tessalon
No significant cough
Afebrile
c/w PRN Cepacol, Tessalon,
He did not need Robitussin
Blood culture NGTD
No hypoxia
CXR no active disease
Appreciate ID help
#staph capitis UTI, seems recurrent
renal function at baseline
Blood culture is NGTD
- recently hospitalized for Staph UTI and was on Levaquin; finished the course.
Appreciate ID help
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
- continue compression therapy
Midodrine to BID, pt couldn't do PRN
- Echo last admit: prosthetic valve thickening otherwise normal study
- PT/OT - home health as per prior hospitalization
Vertigo
- recent neuroimaging testing 01/15 was negative for VBI
- prn Meclizine
-
s/p BioAVR
Essential HTN
- metoprolol was stopped last admission with history of neurogenic orthostasis from Parkinson
Type 2 DM
- diet controlled
- SSI
DVT ppx: Lovenox
Code: Full
Total discharge time spent to see the patient, examine the patient, review data lab result, discuss discharge plan with patient, nursing staff around 65 minutes
Anticipated Discharge: Today
Subjective/Interval History
-
Date of Service: February 11, 2025
No chest pain
No facial or limb numbness
No headache or fever
No sore throat
Objective Data
-
Vital Signs:
Vital Signs
Temp Pulse Resp BP Pulse Ox
97.8 F 77 16 132/85 100
02/11/25 07:52 02/11/25 07:52 02/11/25 07:52 02/11/25 07:52 02/11/25 07:52
I&O
02/10/25 02/11/25 02/12/25
06:59 06:59 06:59
Intake Total 1260 / 1260 1859
Balance 1260 / 1260 1859
--- NOTE | 2025-02-11 12:03 | CM ---
Chart reviewed and patient is for discharge today, patient remains on isolation, IMM discussed and copy provided, plan is to home with [facility].
Plan; Home with [facility]
[2025-02-11 15:11] VITALS: BP 143/82
--- NOTE | 2025-02-11 15:31 | W.DCSUMMARY ---
Discharge Summary
Discharge Data
Date of Admission: 02/07/25
Date of Discharge: 02/11/25
-
Pending Results: No
Hospital Course
69 years old male who was recently discharged from the hospital after treating him for urinary tract infection and orthostatic hypotension presented to the hospital with an episode of seizure-like activity reported by family. Patient reported that
he was feeling warm when it happened and he did not lose consciousness. He reported an episode of headache and on and off numbness at times. Patient was noticed to have fever. He tested positive for COVID-19. Chest radiography did not show acute
finding. He did not have hypoxia. Patient was evaluated by infectious diseases brand sales consultant, he recommended to continue supportive care with no indication for antiviral treatment. Patient was evaluated by neurology and felt his symptoms was related
to migraine and to continue Topamax. EEG did not show acute seizure activity. Patient remained hemodynamically stable. He he was evaluated by physical therapy recommended home health services. Patient reported that it was not easy for him to use
midodrine as as needed dosing. He was started on low-dose midodrine to be given twice a day and to follow-up with his primary care doctor for further adjustment of the dose. Patient was discharged in a stable condition.
Discharge Plan
-
Patient Disposition: Home with Home Care
Discharge Diagnosis/Procedures: -COVID infection, you were seen by infectious diseases doctor, continue with symptomatic treatment, you were given cough medicine and a lozenges. You can use Tylenol for discomfort/aches.
-Migraine, continue Topamax and follow-up with neurology.
-History of orthostatic hypotension, take midodrine twice a day and follow-up with your primary care doctor to adjust the dose of midodrine.
Diet: As tolerated
Referrals:
Declan Silva MD [Active, Neurology] - in two to three weeks
Lori Rachel MD [Family Provider, Internal Medicine] - in one to two weeks
Prescriptions:
New
midodrine 2.5 mg Tablet
2.5 mg PO BID Qty: 60 0RF
benzonatate 100 mg Capsule
100 mg PO TID Qty: 20 0RF
Continued
riboflavin (vitamin B2) [Vitamin B-2] 100 MG tablet
200 mg PO BID
ascorbic acid (vitamin C) [Vitamin C] 500 MG tablet
500 mg PO DAILY
cholecalciferol (vitamin D3) [Vitamin D3] 1,000 UNIT capsule
1,000 unit PO BID
butterbur root extract 50 mg Capsule
50 mg PO DAILY Qty: 0
magnesium oxide 400 mg magnesium Tablet
400 mg PO DAILY Qty: 0
gilmar root-herbal drugs 450 mg Capsule
450 cap PO DAILY Qty: 0
cyanocobalamin (vitamin B-12) 1,000 mcg Tablet
1,000 mcg PO DAILY Qty: 0
turmeric 400 mg Capsule
400 mg PO DAILY Qty: 0
aspirin 325 mg Tablet,Delayed Release (Dr/Ec)
325 mg PO DAILY
ezetimibe 10 mg tablet
10 mg PO DAILY
rosuvastatin 20 mg Tablet
20 mg PO QPM Qty: 30 2RF
topiramate 50 mg Tablet
100 mg PO BID
omega 3-ylm-cul-fish oil [Fish Oil] 1,000 (120-180) mg Capsule
1 cap PO DAILY
meclizine 25 mg Tablet
25 mg PO Q8HPRN PRN (Reason: dizziness) Qty: 30 0RF
Discontinued
levofloxacin 500 mg Tablet
500 mg PO DAILY Qty: 4 0RF
Rx Instructions:
start 02/08
midodrine 2.5 mg Tablet
2.5 mg PO Q8HPRN PRN (Reason: symptomatic orthostasis) Qty: 90 0RF
Discharge Orders:
Discharge Patient (As Directed); Ordered 02/11/25
Ordered By: Jeniffer Mccray
Discharge Date and Time
Print Language: URDU
== END 2025-02-11 15:33 | disposition home health service (06) | DRG 178 ==
LOC: 2 NORTH 11:19
PROVIDERS: ADMITTING PHYSICIAN Internal Medicine; ATTENDING PHYSICIAN Internal Medicine; EMERGENCY PHYSICIAN Emergency Medicine; FAMILY PHYSICIAN Family Medicine; OTHER PHYSICIAN Internal Medicine Infectious Disease; OTHER PHYSICIAN Psychiatry & Neurology Neurology
DX: U07.1 COVID-19 (principal); N39.0 Urinary tract infection, site not specified; R56.00 Simple febrile convulsions; I10 Essential (primary) hypertension; I25.10 Atherosclerotic heart disease of native coronary artery without angina pectoris; G43.109 Migraine with aura, not intractable, without status migrainosus; E11.9 Type 2 diabetes mellitus without complications; E78.00 Pure hypercholesterolemia, unspecified; G20.A1 Parkinson's disease without dyskinesia, without mention of fluctuations; I95.1 Orthostatic hypotension; B95.7 Other staphylococcus as the cause of diseases classified elsewhere; Z79.82 Long term (current) use of aspirin; Z79.899 Other long term (current) drug therapy; Z86.73 Personal history of transient ischemic attack (TIA), and cerebral infarction without residual deficits; Z95.3 Presence of xenogenic heart valve
CPT/HCPCS: 71046; 80048; 80053; 81003; 81015; 82962; 83605; 85025; 85027; 87040; 87086; 87502; 87811; 93005; 95816; 97162; 97166; 97530; 99285